=== PATIENT | male | born 1945 | race African-American/Black ===

== ENCOUNTER → 2021-01-18 08:46 | Outpatient (BNVA) | payer MEDICARE, SELFPAY | PROVIDERS: Referring Provider Family Medicine; Visit Provider Physician Assistant | DX: R14.0 Abdominal distension (gaseous) (principal); K57.30 Diverticulosis of large intestine without perforation or abscess without bleeding; Z80.0 Family history of malignant neoplasm of digestive organs; Z86.010 Personal history of colon polyps | CPT/HCPCS: 99202 ==

== ENCOUNTER 2021-01-19 11:48 | Outpatient (REF) | payer OTHER, MEDICARE, SELFPAY ==
[2021-01-19 12:29] LABS: MANUAL DIFF FLAG NO
[2021-01-19 12:30] LABS: Basophils Percent Auto 0.7 % (0-2); Eosinophils Absolute Auto 0.4 X10*3/uL (0.0-0.4); Eosinophils Percent Auto 7.1 % (0-4); Imm Gran Abs Auto 0.01 X10*3/uL (0.00-0.03); Imm Gran Pct Auto 0.2 % (0.0-0.4); Lymphocytes Absolute Auto 2.3 X10*3/uL (1.2-4.9); Lymphocytes Percent Auto 37.4 % (20-40); Mean Corpuscular HGB Conc 32.5 g/dl (31.0-36.0); Mean Corpuscular Hemoglobin 28.1 pg (27.0-33.0); Mean Corpuscular Volume 86.4 fL (80-98); Mean Platelet Volume 10.3 fL (9.4-12.4); Monocytes Absolute Auto 0.5 X10*3/uL (0.1-1.2); Monocytes Percent Auto 8.8 % (2-11); Neutrophils Absolute Auto 2.8 X10*3/uL (2.0-8.3); Neutrophils Percent Auto 45.8 % (45-73); Platelet Count 192 X10*3/uL (160-400); Red Blood Count 4.63 X10*6/uL (4.60-5.80); Red Cell Distribution Width 13.4 % (11.0-16.0)
[2021-01-19 13:16] LABS: Alanine Aminotransferase 17 U/L (0-40); Albumin Level 4.1 g/dL (3.5-5.0); Alkaline Phosphatase 60 U/L (39-117); Anion Gap 10 (12-20); Aspartate Amino Transferase 20 U/L (5-37); Bilirubin Total 0.6 mg/dL (0.0-1.0); Blood Urea Nitrogen 11 mg/dL (9-16); Calcium 9.5 mg/dL (8.4-10.2); Carbon Dioxide 29 mmol/L (22-29); Chloride 103 mmol/L (96-108); Estimated Glomerular Filt Rate 60; Glucose Random 98 mg/dL (60-115); Potassium 4.7 mmol/L (3.3-5.1); Sodium 137 mmol/L (135-145); Total Protein 6.5 g/dL (6.5-8.0)
[2021-01-19 13:38] LABS: Thyroid Stimulating Hormone 1.97 uIU/mL (0.32-4.0)
== END 2021-01-19 11:49 | disposition home or self-care (01) ==
LOC: HO.LAB 11:48
PROVIDERS: PCP Physician Assistant; Visit Provider Physician Assistant
DX: K57.30 Diverticulosis of large intestine without perforation or abscess without bleeding (principal); K59.09 Other constipation
CPT/HCPCS: 36415; 80053; 84443; 85025

== ENCOUNTER 2021-02-07 10:21 | Outpatient (REF) | payer MEDICARE, OTHER, SELFPAY ==
[2021-02-07 10:57] LABS: MANUAL DIFF FLAG NO
[2021-02-07 11:08] LABS: Basophils Absolute Auto 0.1 X10*3/uL (0.0-0.2); Basophils Percent Auto 0.7 % (0-2); Eosinophils Absolute Auto 0.9 X10*3/uL (0.0-0.4); Eosinophils Percent Auto 13.7 % (0-4); Hematocrit 40.1 % (42-52); Imm Gran Abs Auto 0.01 X10*3/uL (0.00-0.03); Imm Gran Pct Auto 0.1 % (0.0-0.4); Lymphocytes Absolute Auto 2.3 X10*3/uL (1.2-4.9); Lymphocytes Percent Auto 33.4 % (20-40); Mean Corpuscular HGB Conc 32.4 g/dl (31.0-36.0); Mean Corpuscular Hemoglobin 28.1 pg (27.0-33.0); Mean Corpuscular Volume 86.6 fL (80-98); Mean Platelet Volume 10.6 fL (9.4-12.4); Monocytes Absolute Auto 0.4 X10*3/uL (0.1-1.2); Monocytes Percent Auto 5.9 % (2-11); Neutrophils Absolute Auto 3.1 X10*3/uL (2.0-8.3); Neutrophils Percent Auto 46.2 % (45-73); Platelet Count 212 X10*3/uL (160-400); Red Blood Count 4.63 X10*6/uL (4.60-5.80); Red Cell Distribution Width 13.2 % (11.0-16.0); White Blood Count 6.8 X10*3/uL (4.8-10.8)
[2021-02-07 11:35] LABS: Appearance Urine CLEAR; Color Urine YELLOW; Glucose Urine UA NEG (NEG); Leukocyte Esterase Urine NEG (NEG); Nitrite Urine NEG (NEG); PH 5.5 (5.0-8.0); Specific Gravity - Urine <= 1.005 (1.005-1.025); Urine Blood NEG (NEG); Urine Ketones NEG (NEG); Urine Protein NEG (NEG-TRACE)
[2021-02-07 11:41] LABS: Alanine Aminotransferase 15 U/L (0-40); Albumin Level 4.1 g/dL (3.5-5.0); Alkaline Phosphatase 57 U/L (39-117); Anion Gap 12 (12-20); Aspartate Amino Transferase 18 U/L (5-37); Bilirubin Total 0.5 mg/dL (0.0-1.0); Blood Urea Nitrogen 9 mg/dL (9-16); Calcium 9.4 mg/dL (8.4-10.2); Carbon Dioxide 28 mmol/L (22-29); Chloride 105 mmol/L (96-108); Cholesterol 212 mg/dL; Estimated Glomerular Filt Rate > 60; Glucose Fasting 102 mg/dL (60-99); HDL Cholesterol 59 mg/dL; LDL Cholesterol Calculated 125 mg/dl; Potassium 4.8 mmol/L (3.3-5.1); Sodium 140 mmol/L (135-145); Total Protein 6.8 g/dL (6.5-8.0); Triglycerides 140 mg/dL
[2021-02-07 12:02] LABS: Prostate Specific Antigen Scr 3.35 ng/mL (<0.05-4.0); TSH reflex Free T4 1.71 uIU/mL (0.32-4.0)
[2021-02-07 12:12] LABS: Microalbumin Urine < 5.0 mg/L
== END 2021-02-07 10:22 | disposition home or self-care (01) ==
LOC: HO.LAB 10:21
PROVIDERS: PCP Family Medicine; Visit Provider Family Medicine
DX: Z00.00 Encounter for general adult medical examination without abnormal findings (principal); Z12.5 Encounter for screening for malignant neoplasm of prostate; I10 Essential (primary) hypertension
CPT/HCPCS: 36415; 80053; 80061; 81003; 82043; 84153; 84443; 85025

== ENCOUNTER → 2021-10-31 11:24 | Outpatient (BNVA) | payer MEDICARE, OTHER, SELFPAY | PROVIDERS: PCP Family Medicine; Referring Provider Family Medicine; Visit Provider Physician Assistant | DX: K21.9 Gastro-esophageal reflux disease without esophagitis (principal); R06.6 Hiccough; Z86.010 Personal history of colon polyps; Z79.899 Other long term (current) drug therapy | CPT/HCPCS: 99202 ==

== ENCOUNTER → 2021-11-22 11:24 | Outpatient (BNVA) | payer MEDICARE, OTHER, SELFPAY | PROVIDERS: PCP Family Medicine; Visit Provider Physician Assistant | DX: R06.6 Hiccough (principal) | CPT/HCPCS: 99212 ==

== ENCOUNTER 2022-02-08 10:36 | Day surgery (SDC) | payer OTHER, SELFPAY ==
--- NOTE | 2022-02-07 12:58 | HO.ANESPROP2 ---
Documented by User: Maye Rodríguez NP 02/07/22 12:59 HPI - Anesthesia Eval Consult details Narrative: 76yo M for Upper Endoscopy [facility] Active Problems Active Problems: All Active Problems (Updated 11/22/21 @ 13:43 by Hellen Velazquez PA-C) Chronic hiccups (Acute) Eosinophil count raised (Acute) Screening for colon cancer (Acute) Screening for prostate cancer (Acute) Normocytic anemia (Acute) Elevated fasting blood sugar (Acute) Adult general medical exam (Acute) Diverticulosis of colon (Acute) Bloating (Acute) History of colon polyps (Acute) Cervicalgia (Acute) History of diverticulitis (Acute) History of resection of small bowel (Acute) GERD (gastroesophageal reflux disease) (Acute) Family history of colon cancer (Acute) Essential hypertension (Acute) History of TIAs (Acute) History of stroke (Acute) Laboratory examination ordered as part of a routine general medical examination (Acute) Past Medical History Medical History (Updated 02/08/22 @ 11:13 by Aminta Thomas RN) Achilles tendon tear Bloating Colon cancer History of colon polyps Migraines TOMY (obstructive sleep apnea) Tachycardia Family History Family History Father Diabetes Brother Colon cancer Sister Colon cancer Sister Colon cancer Breast cancer Surgical History Surgical History H/O abdominal surgery History of appendectomy Previous back surgery Social History Social History Housing: Apartment Patient Tobacco Use Status: Never used Tobacco e-Cigarette/Vaping Use: Never Used Second Hand Smoke Exposure: No service: Yes Current occupational status: retired Meds Allergies Allergy/AdvReac Type Severity Reaction Status Date / Time naproxen [From NAPROSYN] Allergy Intermediate TENSE,ANXIE Verified 11/22/21 11:25 TY duloxetine AdvReac Mild Headache Verified 02/08/22 11:17 glycopyrrolate AdvReac Mild tachycardia Verified 02/08/22 11:17 ibuprofen [From Advil] AdvReac Mild Gastrointestinal Verified 02/08/22 11:17 Upset pravastatin AdvReac Mild Anxiety Verified 02/08/22 11:17 Home Medications Medication Instructions Recorded Confirmed Last Taken Type acetaminophen 500 mg tablet 500 mg PO QID PRN Headache 11/04/20 02/08/22 Unknown History amlodipine 2.5 mg tablet 2.5 mg PO DAILY 11/04/20 02/08/22 Unknown History aspirin 81 mg tablet,delayed 81 mg PO DAILY 11/04/20 02/08/22 Unknown History release (Adult Aspirin Regimen) etodolac 400 mg tablet 400 mg PO BID 11/04/20 02/08/22 Unknown History omega 2-ety-vye-fish oil 100 cap PO 11/04/20 10/31/21 Unknown History mg-160 mg-1,000 mg capsule (Fish Oil) omeprazole 20 mg capsule,delayed 40 mg PO BID 11/04/20 02/08/22 02/08/22 History release simethicone 125 mg capsule (Gas-X 125 mg PO BID-QID PRN 11/04/20 10/31/21 Unknown History Extra Strength) sumatriptan succinate 50 mg tablet 50 mg PO Q2-4H PRN 11/04/20 10/31/21 Unknown History tamsulosin 0.4 mg capsule 0.4 mg PO DAILY 11/04/20 10/31/21 Unknown History Exam Exam Date and Time: February 07, [id number] Assessment and Plan Assessment Anesthesia Assessment: Chart Reviewed Documented by User: Kirt Sharma MD 02/08/22 16:35 HPI - Anesthesia Eval Consult details Narrative: 76yo M for Upper Endoscopy TIA PMFSH Past Medical History Medical History (Updated 02/08/22 @ 11:13 by Aminta Thomas RN) Achilles tendon tear Bloating Colon cancer History of colon polyps Migraines TOMY (obstructive sleep apnea) Tachycardia Family History Family History Father Diabetes Brother Colon cancer Sister Colon cancer Sister Colon cancer Breast cancer Family history of problems with anesthesia: No Surgical History Surgical History H/O abdominal surgery History of appendectomy Previous back surgery History of Problems with Anesthesia: No Social History Social History Housing: Apartment Patient Tobacco Use Status: Never used Tobacco e-Cigarette/Vaping Use: Never Used Second Hand Smoke Exposure: No service: Yes Current occupational status: retired Meds Allergies Allergy/AdvReac Type Severity Reaction Status Date / Time naproxen [From NAPROSYN] Allergy Intermediate TENSE,ANXIE Verified 11/22/21 11:25 TY duloxetine AdvReac Mild Headache Verified 02/08/22 11:17 glycopyrrolate AdvReac Mild tachycardia Verified 02/08/22 11:17 ibuprofen [From Advil] AdvReac Mild Gastrointestinal Verified 02/08/22 11:17 Upset pravastatin AdvReac Mild Anxiety Verified 02/08/22 11:17 Home Medications Medication Instructions Recorded Confirmed Last Taken Type acetaminophen 500 mg tablet 500 mg PO QID PRN Headache 11/04/20 02/08/22 Unknown History amlodipine 2.5 mg tablet 2.5 mg PO DAILY 11/04/20 02/08/22 Unknown History aspirin 81 mg tablet,delayed 81 mg PO DAILY 11/04/20 02/08/22 Unknown History release (Adult Aspirin Regimen) etodolac 400 mg tablet 400 mg PO BID 11/04/20 02/08/22 Unknown History omega 6-nfv-ayy-fish oil 100 cap PO 11/04/20 10/31/21 Unknown History mg-160 mg-1,000 mg capsule (Fish Oil) omeprazole 20 mg capsule,delayed 40 mg PO BID 11/04/20 02/08/22 02/08/22 History release simethicone 125 mg capsule (Gas-X 125 mg PO BID-QID PRN 11/04/20 10/31/21 Unknown History Extra Strength) sumatriptan succinate 50 mg tablet 50 mg PO Q2-4H PRN 11/04/20 10/31/21 Unknown History tamsulosin 0.4 mg capsule 0.4 mg PO DAILY 11/04/20 10/31/21 Unknown History Exam Airway Mallampati Class: III TM Dist: >3cm Neck ROM: Full Partial: Lower Loose/Missing/Broken Teeth: Yes (Chipped teeth , fillings , implants ) Heart: S1,S2 Lungs: b/l breath sounds Assessment and Plan Assessment Anesthesia Assessment: Anesthesia Plan Discussed Final Anesthetic Review Family History of Problems with Anesthesia: No History of Problems with Anesthesia: No NPO: Yes ASA Class: III Final Preanesthetic Review: Meds/Allgs Chart Reviewed, Consent Obtained/Reviewed and Anes Risks/Benef Reviewed Patient Risk: Intermediate Procedure Risk: Intermediate Anesthetic Plan Anesthetic Plan: MAC: Disposition: Standard PACU
[2022-02-08 10:47] VITALS: BMI 26.6
--- NOTE | 2022-02-08 10:54 | MHC.SHP ---
Pre-Procedural Eval Section A Date of Service: 02/08/22 Section B Chief Complaint: Hiccough, chronic Relevant Family History (Specify if Yes): No Relevant Social History: None Present Medications: see Short Stay Collaborative assessment Medical History: Significant History (Achilles tendon tear Bloating Colon cancer History of colon polyps Migraines) History of Previous Operations: Relevant previous surgery/procedure and date(s) (H/O abdominal surgery History of appendectomy Previous back surgery) Allergies: Allergies Allergy/AdvReac Type Severity Reaction Status Date / Time naproxen [From NAPROSYN] Allergy Intermediate TENSE,ANXIE Verified 11/22/21 11:25 TY Review of Systems Sugical H&P ROS: Negative: Constitution, Cardiovascular, Respiratory, Neurological, Psychiatric, Hem-Onc, Allergic/Immunologic, Gastrointestinal, Genitourinary, Musculoskeletal, Integumentary, Endocrine and Eyes/Ears/Nose/Throat Exam Surgical H&P Exam: Normal: HEENT, Normal: Heart, Normal: Lungs, Normal: Extremities, Normal: Abdomen, Normal: Skin and Normal: Neurological Plan Diagnosis/Plan: Unchanged I have reviewed the history and physical and performed a pertinent physical examination on my patient. No changes have occurred unless specified.
[2022-02-08 10:56] VITALS: BP 148/92; PULSE 84; RESP 16; TEMP 36.6; O2SAT 98
[2022-02-08] MEDS: Lactated Ringers 1,000 ML 100 ML IVCONT (11:11)
--- NOTE | 2022-02-08 11:43 | W.PM.OPN ---
Operative Note Operative Note Date of Service: 02/08/22 Narrative: Procedure Description: EGD Indication: hiccups Anesthesia: MAC FLEXIBLE TRANSORAL UPPER GASTROINTESTINAL ENDOSCOPY UPPER ENDOSCOPY Consent: Indications for the procedure and potential complications of bleeding, perforation, reaction to medications and missed diagnosis were discussed with the patient and informed consent was obtained. Instrument: Olympus GIF H 190 J mid size upper endoscope Monitoring: Vital signs and clinical assessment, continuous EKG monitoring, Pulse oximetry, Carbon Dioxide monitoring and blood pressure monitoring were done throughout the procedure. Procedure: The patient was placed in the left lateral decubitis position and pre-procedure medications were administered and a bite block was placed. The endoscope was inserted into the mouth and advanced under direct vision to the third part of duodenum. A careful inspection was made as the upper endoscope was withdrawn including a retroflexed examination of the proximal stomach; Findings and interventions are described below. Findings: Larynx:normal Esophagus: GE junction at 40 cm, diaphragm hiatus at 43 cm, 3 cm sliding hiatal hernia. bx taken from GEJ, distal and proximal esophagus. balloon dilation done to 19 mm at UES and LES. Stomach: Patchy gastric erythema. Biopsies were obtained. Grade 2 flap valve on retroflexed examination of the cardia. fundic gland polyps noted. Duodenum: Normal bulb and descending duodenum, bx taken Intervention: Biopsies as noted above, balloon dilation Impression/Findings: fundic gland polyps hiatal hernia gastritis PLAN: review nsaid use if ongoing reflux then change PPI, can consider gentile as well, possible manometry cont with baclofen as helps
[2022-02-08 11:50] VITALS: BP 130/84; PULSE 76; RESP 16; TEMP 36.5; O2SAT 100
[2022-02-08 12:05] VITALS: BP 157/84; PULSE 76; RESP 18; TEMP 36.5; O2SAT 99
== END 2022-02-08 12:30 | disposition home or self-care (01) ==
PROVIDERS: PCP Family Medicine; Visit Provider Internal Medicine Gastroenterology
PROC: 0DJ08ZZ Inspection of Upper Intestinal Tract, Via Natural or Artificial Opening Endoscopic (ICD-10-PCS; CPT 43235; principal; 2022-02-08 12:20)
DX: R06.6 Hiccough (principal); K29.50 Unspecified chronic gastritis without bleeding; K31.7 Polyp of stomach and duodenum; K44.9 Diaphragmatic hernia without obstruction or gangrene; Z85.038 Personal history of other malignant neoplasm of large intestine; Z86.010 Personal history of colon polyps; Z79.899 Other long term (current) drug therapy; Z79.82 Long term (current) use of aspirin; Z88.8 Allergy status to other drugs, medicaments and biological substances; Z98.890 Other specified postprocedural states
CPT/HCPCS: 43249; 43239; 88305; 88342; C1726

== ENCOUNTER 2022-02-20 09:57 | Outpatient (REF) | payer MEDICARE, SELFPAY ==
[2022-02-20 11:14] LABS: Alanine Aminotransferase 10 U/L (0-40); Albumin Level 4.1 g/dL (3.5-5.0); Alkaline Phosphatase 67 U/L (39-117); Anion Gap 12 (12-20); Aspartate Amino Transferase 16 U/L (5-37); Bilirubin Total 0.6 mg/dL (0.0-1.0); Blood Urea Nitrogen 10 mg/dL (9-16); Calcium 9.4 mg/dL (8.4-10.2); Carbon Dioxide 29 mmol/L (22-29); Chloride 104 mmol/L (96-108); Estimated Glomerular Filt Rate > 60; Glucose Random 95 mg/dL (60-115); Potassium 4.1 mmol/L (3.3-5.1); Sodium 141 mmol/L (135-145); Total Protein 6.7 g/dL (6.5-8.0)
== END 2022-02-20 09:58 | disposition home or self-care (01) ==
LOC: HO.LAB 09:57
PROVIDERS: PCP Family Medicine; Visit Provider Family Medicine
DX: I10 Essential (primary) hypertension (principal)
CPT/HCPCS: 36415; 80053

== ENCOUNTER → 2022-02-22 11:44 | Outpatient (BNVA) | payer MEDICARE, SELFPAY | PROVIDERS: PCP Family Medicine; Visit Provider Physician Assistant | DX: K21.9 Gastro-esophageal reflux disease without esophagitis (principal) | CPT/HCPCS: 99212 ==

== ENCOUNTER → 2022-05-24 11:06 | Outpatient (BNVA) | payer MEDICARE, SELFPAY | PROVIDERS: PCP Family Medicine; Visit Provider Physician Assistant | DX: R06.6 Hiccough (principal) | CPT/HCPCS: 99212 ==

== ENCOUNTER 2022-06-22 10:27 | Outpatient (REF) | payer MEDICARE, SELFPAY | END 2022-06-22 10:28 | disposition home or self-care (01) | LOC: HO.LAB 10:27 | PROVIDERS: PCP Family Medicine; Visit Provider Family Medicine | DX: Z13.89 Encounter for screening for other disorder (principal) ==

== ENCOUNTER → 2022-07-06 09:33 | Outpatient (BNVA) | payer MEDICARE, SELFPAY | PROVIDERS: PCP Family Medicine; Referring Provider Physician Assistant; Visit Provider Surgery | DX: K44.9 Diaphragmatic hernia without obstruction or gangrene (principal); K21.9 Gastro-esophageal reflux disease without esophagitis; K22.4 Dyskinesia of esophagus; I10 Essential (primary) hypertension; G43.909 Migraine, unspecified, not intractable, without status migrainosus; Z87.19 Personal history of other diseases of the digestive system; Z86.73 Personal history of transient ischemic attack (TIA), and cerebral infarction without residual deficits; Z79.899 Other long term (current) drug therapy | CPT/HCPCS: 99212 ==

== ENCOUNTER → 2022-07-09 09:58 | Outpatient (BNVA) | payer MEDICARE, SELFPAY | PROVIDERS: PCP Physician Assistant; Visit Provider Internal Medicine Gastroenterology | DX: R06.6 Hiccough (principal) | CPT/HCPCS: 99212 ==

== ENCOUNTER 2022-07-24 07:23 | Outpatient (REF) | payer OTHER, MEDICARE, SELFPAY ==
--- NOTE | ~2022-07-24 | CT_ITS ---
EXAMINATION: CT CHEST WITHOUT CONTRAST CLINICAL INFORMATION: Diaphragmatic hernia with obstruction. COMPARISON: CT abdomen and pelvis 07/24/2022. TECHNIQUE: 5 minutes thin axial and reformatted 3 minutes thin sagittal and coronal images of chest were obtained without contrast. This CT examination was performed using dose optimization techniques as appropriate, variously including the following: *Automated exposure control *Adjustment of mA and/or kV according to patient size (this includes techniques or standardized protocols for targeted exams where dose is matched to indication/reason for exam; i.e. extremities or head) *Use of iterative reconstruction technique DLP: 676 mGy-cm FINDINGS: LUNGS: The lungs are well-expanded and clear of acute pneumonic process. There is a 7 mm radiopaque calcification lateral segment left lower lobe. No additional radiopaque nodules visualized. There is no interstitial thickening, bronchiectasis, ground-glass density or nodule. MEDIASTINUM: The thyroid lobes are symmetrical and normal. The central trachea and the bronchi are widely patent. Heart size and the great vessels are normal caliber. There are coronary artery calcifications. There is no pericardial effusion. No abnormal mediastinal or hilar lymph nodes seen. PLEURA: There is no pleural effusion, thickening or calcification. AXILLA: There are small shotty bilateral axillary lymph nodes. The chest wall is unremarkable. OSSEOUS STRUCTURES: No aggressive lytic or sclerotic process seen. UPPER ABDOMEN: Visualized liver, pancreas and bilateral adrenal glands are unremarkable. There is a small hiatal hernia. CT/CT chest wo con - High Res IMPRESSION: 1. A 7 mm radiopaque calcification lateral segment left lower lobe. No additional nodules seen. 2. No abnormal mediastinal or axillary lymph nodes seen.
--- NOTE | ~2022-07-24 | CT_ITS ---
EXAMINATION: CT ABDOMEN AND PELVIS WITHOUT CONTRAST CLINICAL INFORMATION: Diaphragmatic hernia. COMPARISON: None available. TECHNIQUE: Multidetector volumetric imaging was performed from the superior aspect of the liver through the pubic symphysis. Sagittal and coronal reformatted images were obtained on the technologist's workstation. This CT examination was performed using dose optimization techniques as appropriate, variously including the following: *Automated exposure control *Adjustment of mA and/or kV according to patient size (this includes techniques or standardized protocols for targeted exams where dose is matched to indication/reason for exam; i.e. extremities or head) *Use of iterative reconstruction technique DLP: 676 mGy-cm FINDINGS: LUNG BASES: There is a calcified 6 mm granuloma left lower lobe and small calcification left hilar infrahilar region likely a lymph node. Otherwise lung bases are clear. Heart size is normal. A small hiatal hernia with mild mural thickening is noted. LIVER, GALLBLADDER, AND BILIARY TREE: The liver is normal in size, shape, and attenuation, few scattered calcifications seen in left hepatic lobe. No focal lesion or intrahepatic ductal dilatation. The gallbladder is unremarkable with no evidence of radiopaque gallstones, gallbladder wall thickening, or obvious pericholecystic inflammatory changes. PANCREAS: Unremarkable. SPLEEN: There are punctate calcifications in the spleen. ADRENAL GLANDS: Unremarkable. KIDNEYS AND URETERS: The kidneys are normal in size, shape, and attenuation. No hydronephrosis, hydroureter, or calculi seen. No perinephric stranding. There is a 5.3 cm cyst mid to lower pole left kidney. BLADDER: There is mild bladder wall thickening but no radiopaque calculi. GASTROINTESTINAL TRACT: There is scattered diverticuli seen throughout the colon without any evidence of mural thickening or pericolic fat stranding. The small bowel loops are normal caliber. Appendix is not seen with certainty. ABDOMINAL WALL: No significant hernia is appreciated. LYMPH NODES: No abnormal size retroperitoneal lymph nodes seen. VASCULAR: Unremarkable. PELVIC VISCERA: No free air or free fluid seen. OSSEOUS STRUCTURES: There are degenerative disc changes L4-L5 and L5-S1 disc levels. No aggressive lytic or sclerotic process seen. CT/CT abdomen pelvis wo IV con IMPRESSION: Small hiatal hernia with mild mural thickening. Colonic diverticulosis without diverticulitis. Left renal cyst. Fleischner guidelines were followed.
--- NOTE | ~2022-07-24 | FL_ITS ---
EXAMINATION: XR UPPER GI SERIES WITH SMALL BOWEL CLINICAL INFORMATION: Abdominal pain. History of diaphragmatic hernia. COMPARISON: CT abdomen and pelvis 07/24/2022 performed earlier today. TECHNIQUE: A single solid surface fabricator view of the abdomen was obtained prior to the exam. Subsequently, routine upper GI air-contrast study with sequential images of abdomen were obtained as part of small bowel follow-through. FINDINGS: Single supine view of the abdomen reveals a nonspecific bowel gas pattern. There is linear calcification in left mid abdomen from previous intervention. Following oral administration of thick barium and effervescent granules in upright view, there is normal propagation of bolus from the oral cavity through the pharynx, esophagus into stomach without obstruction. There is a mid esophageal blind-ending irregular-shaped diverticulum. There is an irregular mucosal appearing distal esophagus suspicious for esophagitis. Also visualized is moderate gastroesophageal reflux in supine position with a small sliding hiatal hernia. Otherwise the course, caliber and peristalsis of the stomach is normal. No mucosal irregularity seen. There is a small sliding hiatal hernia with reflux. The duodenal bulb and the sweep is normal. Incidental finding of multiple colonic diverticula noted. Sequential images of small bowel reveal course, caliber and peristalsis of the small bowel loops is normal. No mucosal thickening, irregularity or narrowing seen. The small bowel transit time is 120 minutes. Spot images of ileocecal junction reveal no significant abnormality. FLUOROSCOPY TIME: 3.7 minutes. DOSE AREA PRODUCT: 62.742 uGy-m2 (microgray-meter squared). FL/FL upper GI w air w SBFT IMPRESSION: Moderate size mid esophageal irregular-appearing ventral diverticulum. Suspect distal reflux esophagitis. There is a moderate gastroesophageal reflux with sliding hiatal hernia. Unremarkable small bowel follow-through with a small bowel transit time of 120 minutes.
== END 2022-07-24 07:24 | disposition home or self-care (01) ==
LOC: HO.CT 07:23
PROVIDERS: PCP Physician Assistant; Visit Provider Surgery
DX: K44.9 Diaphragmatic hernia without obstruction or gangrene (principal); Z87.19 Personal history of other diseases of the digestive system
CPT/HCPCS: 71250; 74176; 74246; 74248

== ENCOUNTER → 2022-08-01 10:19 | Outpatient (BNVA) | payer OTHER, MEDICARE, SELFPAY | PROVIDERS: PCP Physician Assistant; Referring Provider Physician Assistant; Visit Provider Surgery | DX: K44.9 Diaphragmatic hernia without obstruction or gangrene (principal); Q39.6 Congenital diverticulum of esophagus | CPT/HCPCS: 99212 ==

== ENCOUNTER → 2022-08-17 09:42 | Outpatient (BNVA) | payer MEDICARE, SELFPAY | PROVIDERS: PCP Physician Assistant; Visit Provider Surgery | DX: K44.0 Diaphragmatic hernia with obstruction, without gangrene (principal); K22.4 Dyskinesia of esophagus; R06.6 Hiccough | CPT/HCPCS: 99202 ==

== ENCOUNTER → 2022-09-05 14:28 | Outpatient (BNVA) | payer OTHER, SELFPAY | PROVIDERS: PCP Physician Assistant; Referring Provider Physician Assistant; Visit Provider Internal Medicine | DX: Z01.810 Encounter for preprocedural cardiovascular examination (principal); I25.10 Atherosclerotic heart disease of native coronary artery without angina pectoris; Z86.73 Personal history of transient ischemic attack (TIA), and cerebral infarction without residual deficits | CPT/HCPCS: 93005; 99202 ==

== ENCOUNTER 2022-09-13 10:17 | Outpatient (REF) | payer OTHER, MEDICARE, SELFPAY ==
[2022-09-13 12:18] LABS: Anion Gap 11 (12-20); Blood Urea Nitrogen 9 mg/dL (9-16); Calcium 9.1 mg/dL (8.4-10.2); Carbon Dioxide 29 mmol/L (22-29); Chloride 104 mmol/L (96-108); Estimated Glomerular Filt Rate > 60; Glucose Random 88 mg/dL (60-115); Potassium 4.5 mmol/L (3.3-5.1); Sodium 139 mmol/L (135-145)
== END 2022-09-13 10:18 | disposition home or self-care (01) ==
LOC: HO.LAB 10:17
PROVIDERS: PCP Physician Assistant; Visit Provider Internal Medicine
DX: Z01.810 Encounter for preprocedural cardiovascular examination (principal); I10 Essential (primary) hypertension; Z86.73 Personal history of transient ischemic attack (TIA), and cerebral infarction without residual deficits
CPT/HCPCS: 36415; 80048

== ENCOUNTER → 2022-09-17 15:16 | Outpatient (REF) | payer OTHER, MEDICARE, SELFPAY ==
--- NOTE | 2022-09-17 15:19 | CA_ITS ---
Transthoracic Echocardiogram Patient (Last, First, Middle): Benjamín Viera R Gender: Male Date of : 1945 Age: 77 Procedure Date: 09/17/2022 Procedure Type: Transthoracic Echocardiogram Location: OP Height: 185.42 cm Weight: 89.81 kg BSA: 2.14 m2 Heart Rate: 50 bpm BP: 122 / 80 mmHg Horticultural Therapist: JERMAN Referring MD: Benjamin Calabrese MD Symptoms: Z01.810 - Encounter for preprocedural cardiovascular examination Study Quality: Adequate ECG Rhythm: Bradycardia Conclusions: - The left ventricular systolic function is normal. The calculated ejection fraction is 57% by biplane method. - No obvious valvular pathology seen on this study. 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 Findings Left Ventricle Normal left ventricular cavity size. There is mildly increased left ventricular wall thickness. The left ventricular systolic function is normal. The calculated ejection fraction is 57% by biplane method. There is no evidence of regional wall motion abnormalities. Diastolic function is normal for age. LV peak GLS -16.2%. Right Ventricle Mildly increased right ventricular cavity size. There is normal right ventricular systolic function. Atria The left atrium is mildly dilated. The right atrium is normal in size. Aortic Valve There is a normal trileaflet aortic valve. There is no aortic valve stenosis. There is no aortic valve regurgitation. Mitral Valve The mitral valve appears normal. There is trace mitral valve regurgitation. There is no mitral valve stenosis. Pulmonic Valve The pulmonic valve is likely normal. Tricuspid Valve There is trace tricuspid valve regurgitation. There is no evidence of pulmonary hypertension. Great Vessels There is mild dilatation of the ascending aorta measuring 4.10 cm. Venous The inferior vena cava is normal in size and collapses greater than 50% with inspiration. Pericardium/Pleural There is no evidence of pericardial effusion. Prior Study Comparison No prior study available for comparison. Recommendations, Care & Conclusions No obvious valvular pathology seen on this study. Measurements 2D Linear Measurements IVSd: 1.11 0.6-0.9/0.6-1.0 cm LVIDd: 4.97 3.9-5.3/4.2-5.9 cm LVIDd Index: 2.32 2.4-3.2/2.2-3.1 cm/m2 LVIDs: 3.07 2.0-3.6 cm LVPWd: 1.13 0.7-1.1 cm LA Diam: 3.60 2.7-3.8/3.0-4.0 cm LAIDs Index: 1.68 1.5-2.3 cm/m2 LV Mass: 262.12 67-162/88-224 g LV Mass Index: 122.49 43-95/49-115 g/m2 LVOT Diam: 2.20 3.0+(-)1.3 cm 2D Systolic Function EF 4C: 58.00 >55% EF 2C: 56.50 >55% EF BiP: 56.60 >55% Mitral Valve MV Pk E: 0.73 MV PK A: 0.93 MV Decel Time: 211.00 E/A: 0.80 E'Lateral: 7.18 E'Medial: 5.98 E/E' Med: 12.30 E/E' Lat: 10.20 PHT: 62.00 MVA PHT: 3.55 Decel [place]: 3.47 Aortic Valve AoV Pk Richard: 1.37 AoV Mn Richard: 0.92 AoV VTI: 0.31 AoV Pk Grad: 8.00 Aov Mn Grad: 4.00 GAGAN Cont.VTI: 2.91 LVOT LVOT Pk Richard: 0.92 LVOT Mn Richard: 0.61 LVOT VTI: 0.24 LVOT Pk Grad: 3.00 LVOT Mn Grad: 2.00 LVOT Diam: 2.20 LVOT Area: 3.80 Diastolic Function MV Pk E: 0.73 MV Pk A: 0.93 E/A: 0.80 E'Medial: 5.98 E/E' Med: 12.30 E' Laterial: 7.18 E/E' Lat: 10.20 Right Ventricle TAPSE (mm): 25.30 TVS' Richard: 9.46 Tricuspid Valve TR Pk Richard: 2.01 TR Pk Grad: 16.00 RA Press: 3.00 RVSP: 19.00 Great Vessels Aorta Sinus of Valsalva: 4.30 2.0-3.[address] [place]: 3.48 1.7-3.4 cm Ao Asc: 4.10 2.1-3.4 cm Updated in Other Vendor System with Status of Final Benjamin Calabrese MD electronically signed on 09/18/2022 12:01:01 PM with status of Final
== END ==
LOC: HO.CARD 15:16
PROVIDERS: PCP Physician Assistant; Visit Provider Internal Medicine
DX: Z01.810 Encounter for preprocedural cardiovascular examination (principal)
CPT/HCPCS: 93306; 93356

== ENCOUNTER → 2022-09-21 09:28 | Outpatient (BNVA) | payer OTHER, MEDICARE, SELFPAY | PROVIDERS: PCP Physician Assistant; Visit Provider Surgery | DX: K44.9 Diaphragmatic hernia without obstruction or gangrene (principal); K21.9 Gastro-esophageal reflux disease without esophagitis | CPT/HCPCS: 99212 ==

== ENCOUNTER 2022-10-03 10:29 | Outpatient (REF) | payer MEDICARE, SELFPAY ==
[2022-10-03 10:57] LABS: MANUAL DIFF FLAG NO
[2022-10-03 11:31] LABS: Basophils Percent Auto 0.6 % (0-2); Eosinophils Absolute Auto 0.3 X10*3/uL (0.0-0.4); Eosinophils Percent Auto 6.2 % (0-4); Hematocrit 39.8 % (42.0-52.0); Hemoglobin 12.9 g/dl (14.0-18.0); Lymphocytes Absolute Auto 2.2 X10*3/uL (1.2-4.9); Lymphocytes Percent Auto 44.5 % (20-40); Mean Corpuscular HGB Conc 32.4 g/dl (31.0-36.0); Mean Corpuscular Hemoglobin 27.7 pg (27.0-33.0); Mean Corpuscular Volume 85.6 fL (80.0-98.0); Monocytes Absolute Auto 0.4 X10*3/uL (0.1-1.2); Neutrophils Absolute Auto 2.1 x10*3/uL (2.0-8.3); Neutrophils Percent Auto 41.7 % (45-73); Platelet Count 196 X10*3/uL (160-400); Red Blood Count 4.65 X10*6/uL (4.60-5.80); Red Cell Distribution Width 13.2 % (11.0-16.0)
[2022-10-03 11:32] LABS: Prothrombin Time 10.9 SEC (10.0-13.1)
[2022-10-03 11:35] LABS: Partial Thromboplastin Time 30.6 SEC (26.0-36.4)
[2022-10-03 11:43] LABS: Estimated Average Glucose 108 mg/dL; Hemoglobin A1c % 5.4 %
== END 2022-10-03 10:30 | disposition home or self-care (01) ==
LOC: HO.LAB 10:29
PROVIDERS: Visit Provider Surgery
DX: K21.9 Gastro-esophageal reflux disease without esophagitis (principal); K44.9 Diaphragmatic hernia without obstruction or gangrene
CPT/HCPCS: 36415; 83036; 85025; 85610; 85730

== ENCOUNTER 2022-10-11 06:16 | Inpatient (IN) | payer OTHER, SELFPAY ==
[2022-10-04 15:23] VITALS: BMI 26.1
--- NOTE | 2022-10-07 11:35 | MHC.SHP ---
Pre-Procedural Eval Section A Date of Service: 10/07/22 The patient is an INPATIENT: Yes The History & Physical has been completed within 30 days and I have reviewed it.: No Section B Chief Complaint: Diaphragmatic hernia without obstruction or gangre Relevant Family History (Specify if Yes): No Relevant Social History: None Present Medications: None Medical History: No relevant PMH History of Previous Operations: No relevant previous surgery Allergies: Allergies Allergy/AdvReac Type Severity Reaction Status Date / Time naproxen [From NAPROSYN] Allergy Intermediate TENSE,ANXIE Verified 10/04/22 13:24 TY duloxetine AdvReac Mild Headache Verified 10/04/22 13:24 glycopyrrolate AdvReac Mild tachycardia Verified 10/04/22 13:24 ibuprofen [From Advil] AdvReac Mild Gastrointestinal Verified 10/04/22 13:24 Upset pravastatin AdvReac Mild Anxiety Verified 10/04/22 13:24 Review of Systems Sugical H&P ROS: Negative: Constitution, Cardiovascular, Respiratory, Neurological, Psychiatric, Hem-Onc, Allergic/Immunologic, Genitourinary, Musculoskeletal, Integumentary, Endocrine and Eyes/Ears/Nose/Throat and Yes, Specify: Gastrointestinal (GERD, hiccups) Exam Surgical H&P Exam: Normal: HEENT, Normal: Heart, Normal: Lungs, Normal: Extremities, Normal: Abdomen, Normal: Skin and Normal: Neurological Plan Diagnosis/Plan: Unchanged I have reviewed the history and physical and performed a pertinent physical examination on my patient. No changes have occurred unless specified. Time Spent With Patient Time: Total time managing care of this patient today ____ minutes.
--- NOTE | 2022-10-10 10:58 | P.CONAN_ITS ---
Documented by User: Maye Rodríguez NP 10/10/22 11:05 HPI - Anesthesia Eval Consult details Narrative: 77yo M for Hernia Repair Diaphragmatic Laparoscopic Cardiac optimized [facility] Active Problems Active Problems: All Active Problems (Updated 10/05/22 @ 16:32 by Bubba Hardy MD) Nausea (Acute) Atherosclerotic cardiovascular disease (Acute) Preoperative cardiovascular examination (Acute) Obstruction concurrent with and due to paraesophageal hernia (Acute) Chronic hiccups (Acute) Family history of colon cancer (Acute) Hiatal hernia (Acute) Diaphragmatic hernia (Acute) GERD (gastroesophageal reflux disease) (Acute) Esophageal dysmotility (Acute) Esophageal diverticulum (Acute) Diverticulosis of colon (Acute) History of diverticulitis (Acute) History of colon polyps (Acute) History of TIAs (Acute) History of stroke (Acute) TOMY (obstructive sleep apnea) (Acute) Essential hypertension (Acute) Elevated fasting blood sugar (Acute) Normocytic anemia (Acute) Eosinophil count raised (Acute) Migraines (Acute) Cervicalgia (Acute) BPH (benign prostatic hyperplasia) (Acute) Past Medical History Medical History Achilles tendon tear BPH (benign prostatic hyperplasia) Chronic hiccups DJD (degenerative joint disease) Essential hypertension Family history of colon cancer History of colon polyps History of stroke History of TIAs Migraines TOMY (obstructive sleep apnea) Family History Family History Father Diabetes Brother Colon cancer Sister Colon cancer Sister Colon cancer Breast cancer Family history of problems with anesthesia: No Surgical History Surgical History History of appendectomy History of carpal tunnel surgery of left wrist History of colonoscopy History of esophagogastroduodenoscopy (EGD) History of lumbar surgery History of resection of small bowel History of Problems with Anesthesia: No Social History Social History Housing: Apartment Are you a primary career services director to a significant other at home: No Do you presently have visiting nurse or other home services: No Patient Tobacco Use Status: Never used Tobacco e-Cigarette/Vaping Use: Never Used Second Hand Smoke Exposure: No Use of substances other than those prescribed or required for medical reasons: No Have you been hit, kicked, punched, or otherwise hurt by someone within the past year? If so, by whom?: No Are you DNR?: No Advance Directives: No Advance Directives Information Provided: Yes (Info Sent with Pre-op Instructions) Advance Directives on File: No Recently lost weight without trying: No Eating poorly because of decreased appetite: No Nutrition Risks: No Nutritional Risk service: Yes Current occupational status: retired Meds Allergies Allergy/AdvReac Type Severity Reaction Status Date / Time naproxen [From NAPROSYN] Allergy Intermediate TENSE,ANXIE Verified 10/04/22 13:24 TY duloxetine AdvReac Mild Headache Verified 10/04/22 13:24 glycopyrrolate AdvReac Mild tachycardia Verified 10/04/22 13:24 ibuprofen [From Advil] AdvReac Mild Gastrointestinal Verified 10/04/22 13:24 Upset pravastatin AdvReac Mild Anxiety Verified 10/04/22 13:24 Home Medications Medication Instructions Recorded Confirmed Last Taken Type acetaminophen 500 mg tablet 500 mg PO QID PRN Headache 11/04/20 10/04/22 Unknown History amlodipine 2.5 mg tablet 2.5 mg PO DAILY 11/04/20 10/04/22 Unknown History aspirin 81 mg tablet,delayed 81 mg PO DAILY 11/04/20 10/04/22 10/04/22 History release (Adult Aspirin Regimen) simethicone 125 mg capsule (Gas-X 125 mg PO BID-QID PRN Gastric 11/04/20 10/04/22 Unknown History Extra Strength) Reflux sumatriptan succinate 50 mg tablet 50 mg PO Q2-4H PRN Headache 11/04/20 10/04/22 Unknown History tamsulosin 0.4 mg capsule 0.4 mg PO DAILY 11/04/20 10/04/22 Unknown History Exam Exam Date and Time: October 10, 2022 1058 Height,Weight and Vital Signs: Height 6 ft 1 in Weight 89.811 kg Pertinent Lab Results Pertinent Lab Results: Laboratory Tests 10/03/22 10:45 Blood Type B Positive Antibody Screen NEGATIVE Narrative Narrative: EKG 08/2022 sinus bradycardia at 58/Min; no significant ST-T changes and otherwise unremarkable.? Normal GA and corrected QT. Cardiac CTA 09/2022 No hemodynamically significant CAD ECHO 09/2022 Conclusions: - The left ventricular systolic function is normal.? The ? calculated ejection fraction is 57% by biplane method. ? - No obvious valvular pathology seen on this study.? 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 ? Assessment and Plan Assessment Anesthesia Assessment: Chart Reviewed Final Anesthetic Review Family History of Problems with Anesthesia: No History of Problems with Anesthesia: No Documented by User: Sherice Roy MD 10/11/22 11:15 [facility] Active Problems Active Problems: All Active Problems (Updated 10/11/22 @ 07:15 by Sherice Roy MD) Nausea (Acute) Atherosclerotic cardiovascular disease (Acute)- coronary calcifications Preoperative cardiovascular examination (Acute) Obstruction concurrent with and due to paraesophageal hernia (Acute) Chronic hiccups (Acute) Family history of colon cancer (Acute) Hiatal hernia (Acute) Diaphragmatic hernia (Acute) GERD (gastroesophageal reflux disease) (Acute) Esophageal dysmotility (Acute) Esophageal diverticulum (Acute) Diverticulosis of colon (Acute) History of diverticulitis (Acute) History of colon polyps (Acute) History of TIAs (Acute)- several TIAs. Last about 2 years ago History of stroke (Acute)- no residual TOMY (obstructive sleep apnea) (Acute) Essential hypertension (Acute) Elevated fasting blood sugar (Acute) Normocytic anemia (Acute) Eosinophil count raised (Acute) Migraines (Acute) Cervicalgia (Acute) BPH (benign prostatic hyperplasia) (Acute) Past Medical History Medical History Achilles tendon tear BPH (benign prostatic hyperplasia) Chronic hiccups DJD (degenerative joint disease) Essential hypertension Family history of colon cancer History of colon polyps History of stroke History of TIAs Migraines TOMY (obstructive sleep apnea) Family History Family History Father Diabetes Brother Colon cancer Sister Colon cancer Sister Colon cancer Breast cancer Surgical History Surgical History History of appendectomy History of carpal tunnel surgery of left wrist History of colonoscopy History of esophagogastroduodenoscopy (EGD) History of lumbar surgery History of resection of small bowel Social History Social History Housing: Apartment Are you a primary career services director to a significant other at home: No Do you presently have visiting nurse or other home services: No Patient Tobacco Use Status: Never used Tobacco e-Cigarette/Vaping Use: Never Used Second Hand Smoke Exposure: No Use of substances other than those prescribed or required for medical reasons: No Have you been hit, kicked, punched, or otherwise hurt by someone within the past year? If so, by whom?: No Are you DNR?: No Advance Directives: No Advance Directives Information Provided: Yes (Info Sent with Pre-op Instructions) Advance Directives on File: No Recently lost weight without trying: No Eating poorly because of decreased appetite: No Nutrition Risks: No Nutritional Risk service: Yes Current occupational status: retired Meds Allergies Allergy/AdvReac Type Severity Reaction Status Date / Time naproxen [From NAPROSYN] Allergy Intermediate TENSE,ANXIE Verified 10/04/22 13:24 TY duloxetine AdvReac Mild Headache Verified 10/04/22 13:24 glycopyrrolate AdvReac Mild tachycardia Verified 10/04/22 13:24 ibuprofen [From Advil] AdvReac Mild Gastrointestinal Verified 10/04/22 13:24 Upset pravastatin AdvReac Mild Anxiety Verified 10/04/22 13:24 Home Medications Medication Instructions Recorded Confirmed Last Taken Type acetaminophen 500 mg tablet 500 mg PO QID PRN Headache 11/04/20 10/04/22 Unknown History amlodipine 2.5 mg tablet 2.5 mg PO DAILY 11/04/20 10/04/22 Unknown History aspirin 81 mg tablet,delayed 81 mg PO DAILY 11/04/20 10/04/22 10/04/22 History release (Adult Aspirin Regimen) simethicone 125 mg capsule (Gas-X 125 mg PO BID-QID PRN Gastric 11/04/20 10/04/22 Unknown History Extra Strength) Reflux sumatriptan succinate 50 mg tablet 50 mg PO Q2-4H PRN Headache 11/04/20 10/04/22 Unknown History tamsulosin 0.4 mg capsule 0.4 mg PO DAILY 11/04/20 10/04/22 Unknown History Exam Height,Weight and Vital Signs: Height 6 ft 1 in Weight 89.811 kg Vital Signs Temp Pulse Resp BP Pulse Ox O2 Del Method 10/11/22 06:39 97.4 F 46 L 16 132/72 99 Room Air Pertinent Lab Results Pertinent Lab Results: Laboratory Tests 10/03/22 10:45 Blood Type B Positive Antibody Screen NEGATIVE Lab Results 10/03/22 10/10/22 Range/Units 10:45 12:07 COVID-19 (PONCE) Negative (Negative) COVID-19 Clin Com See Note Blood Type B Positive Antibody Screen NEGATIVE Airway Mallampati Class: III TM Dist: >3cm Neck ROM: Full Partial: Lower Loose/Missing/Broken Teeth: Yes (Bonded top front incisor, partial denture bottom-not here. Denies loose or broken teeth) Heart: RRR Lungs: CTAB Assessment and Plan Assessment Anesthesia Assessment: Anesthesia Plan Discussed Final Anesthetic Review NPO: Yes ASA Class: III Final Preanesthetic Review: No Changes in Pt Med Stat, Meds/Allgs Chart Reviewed, Consent Obtained/Reviewed and Anes Risks/Benef Reviewed Patient Risk: Intermediate Procedure Risk: Intermediate Assessment/Block/Sedation in SS: Assess/Block/Sedation-SS Anesthetic Plan Anesthetic Plan: GA Disposition: Standard PACU and Inp. Admit - Standard Bed
[2022-10-10 13:16] LABS: IDNOW Serial# 9DB6401D
[2022-10-10 13:17] LABS: COVID-19 Test Negative (Negative)
[2022-10-11] VITALS (14 sets, daily range): BP systolic 132–159; BP diastolic 72–92; PULSE 46–84; RESP 14–18; TEMP 36–37.1; O2SAT 96–100
--- NOTE | ~2022-10-11 | XR_ITS ---
EXAMINATION: XR CHEST CLINICAL INFORMATION: Follow-up small right pneumothorax. COMPARISON: 10/11/2022 TECHNIQUE: 2 views of the chest were obtained. FINDINGS: Lungs are mildly hypoinflated. The previously observed small right apical pneumothorax is nearly completely resolved and is now barely perceptible. There are linear, hazy opacities of mild bibasilar atelectasis without overt consolidation. Cardiac silhouette is normal in size. Pulmonary vascular pattern is normal. Posterior costophrenic sulci are blunted from trace pleural effusions. There appears to be persistent pneumoperitoneum. Surgical clips are seen in the epigastric region. XR/XR chest 2V IMPRESSION: * Mild bibasilar atelectasis and trace pleural effusions. * Interval near complete resolution of previously observed small right apical pneumothorax. * Persistent pneumoperitoneum.
--- NOTE | ~2022-10-11 | XR_ITS ---
EXAMINATION: XR CHEST CLINICAL INFORMATION: Right pneumothorax. COMPARISON: Chest CT scan dated 07/24/2022. TECHNIQUE: 2 views of the chest were obtained. FINDINGS: There is a small right apical pneumothorax. There is minimal blunting of the The heart and mediastinal structures are unremarkable. XR/XR chest 2V IMPRESSION: 1. Small right apical pneumothorax. 2. Minimal blunting of the costophrenic angles bilaterally may be projectional representing pleural scarring or very small pleural effusions.
[2022-10-11] MEDS: Lactated Ringers 1,000 ML 999 ML IV (06:57)
[2022-10-11] MEDS: Aprepitant 32 MG/4.4 ML VIAL IVPUSH (06:58)
--- NOTE | 2022-10-11 07:45 | PM.OP ---
Brief Operative Note Date of Service: 10/11/22 Pre-op diagnosis: Diaphragmatic hernia, GERD, esophageal diverticulum Post-op diagnosis: same Procedure: COMORBIDITIES: GERD, diaphragmatic hernia, BPH, hypertension,DJD, thoracic aortic dilation, migraines ?INDICATIONS: The patient is a 77 year old male who was referred to me from Dr. Ortiz for a diaphragmatic hernia and GERD confirmed by EGD, CT-chest and UGI. The UGI also revealed an esophageal diverticulum. The patient was referred to Dr. Simmons to determine whether this contributes to the patient's symptoms and the decision was made to proceed with the diaphragmatic hernia repair and determine after that whether any residual symptoms could be antributed to the divericulum. The patient is scheduled today for diaphragmatic hernia repair. Risks of recurrent hernia, dysphagia, persistent GERD, VTE, leak, infection and bleeding were discussed with the patient and he is in agreement with the plan. PROCEDURE: Esophago-gastroscopy, laparoscopic repair of incarcerated diaphragmatic hernia and laparoscopic gastropexy DESCRIPTION OF PROCEDURE: After informed consent was obtained from the patient, the patient was given preoperative antibiotics, and was transferred to the operating room. After successful induction of general anesthesia, pneumatic compression devices were placed on both lower extremities. An upper endoscopy was performed next. The oropharynx and esophagus appeared to be within normal limits. There was a diaphragmatic hernia present of moderate size consistent with the findings of the preoperative upper GI. The esophageal diverticulum could not be visualized endoscopically. The stomach was entered. Then after all fluid and air were suctioned and the stomach was fully decompressed, the scope was withdrawn and secured in the mid esophagus. The patient was then prepped and draped in the usual sterile manner, and abdominal access was established at the right upper quadrant with the Tripp technique. A 12 mm blunt port was inserted, and the abdomen was insufflated with CO2 to a pressure of 15 mmHg. Under direct visualization, additional ports were placed, specifically two 5 mm Versi-step ports to the left upper quadrant, and a 5 mm Versi-Step port to the right upper quadrant. 1% lidocaine plain was used to infiltrate all port sites as well as all fascia defects. Following that, the patient was placed in a steep reverse Trendelenburg position. An additional 5 mm port was placed to the right flank for the Mediflex retractor that was used to retract the left lobe of the liver. The gastro-esophageal fat pad was opened with the ultrasonic device (Thunderbeat, Olympus) and the anterior esophagus and hiatus were exposed. The angle of His was opened with the ultrasonic device the fundus of the stomach from any diaphragmatic and splenic attachments. I then opened the gastrocolic ligament between the transverse colon and the greater curvature of the stomach with the ultrasonic device to enter the lesser sac and facilitate the ligation of the short gastric vessels. I started at a mid-point along the greater curvature and using the Thunderbeat, all short gastric vessels were divided all the way to the angle of His until the left kayla was completely dissected at its entirety. There was an obvious significant-sized hiatal hernia. I continued dissecting along the hiatus toward the left kayla and the angle of His. There was a large replaced left hepatic artery which was carefully preserved. That made the dissection more challenging. Neveretheless, I fully mobilized the fat pad that was incarcerated in the hernia. I then continued by dissecting even further into the posterior retro-esophageal space all the way to the angle of His. I continued to mobilize the esophagus into the mediastinum circumferentially. Both vagal nerves were seen and preserved. At that point, I was able to have 5 cm of esophagus into the abdomen.? After I completely mobilized the esophagus from both the left and right kayla and I had a good mobilization of the esophagus circumferentially, I closed the hernia defect with three interrupted #0 Surgidac sutures using the Endo Stitch device, two of which were placed posterior and one of which anterior to the esophagus. ? A gastropexy was then performed in order to prevent postoperative GERD and partial gastric volvulus. Several interrupted 2.0 Surgidac sutures were placed between the greater curvature of the dissected stomach and the previously divided greater omentum and gastro-colic ligament using the Endo-Stitch device. ?An upper endoscopy was performed. There was no narrowing at the GE junction or any esophageal injury. The scope was easily advanced all the way to the pylorus which was clearly visualized. There was no narrowing anywhere. At that point the gastroscope was withdrawn from the patient?s mouth while we were decompressing the bowel and the stomach from any remaining air. I looked into the lesser sac to see how the stomach was situating and it was situating well. There was no bleeding from the, spleen, or short gastric vessels. The Mediflex retractor was removed, and the undersurface of the liver was inspected and there was no bleeding. The patient was placed in supine position. I closed the fascial defect of the 12 mm port site with a figure of eight #1 Polysorb suture. Then 30cc of Ropivacaine plain with 10 mg of Dexamethasone were used to infiltrate the fascial closure as well as all skin incisions. A total of 5ml of Zynrelef was applied in the Tripp wound. At this point, the abdomen was deflated, all ports were removed under direct vision, and no bleeding was noted from any of the port sites. The skin incisions were irrigated with saline and were closed with 4-0 absorbable monofilament sutures. Steri-Strips and OpSites were used to cover all incisions. The patient was extubated and was transferred in stable condition to the recovery room for further care. I was present and performed all conner parts of the procedure. Mr. Medel was the assistant account manager. There were no residents to assist with this case. James Hardy MD, PhD, FACS Surgeon: Bubba Hardy MD Anesthesia: GETA, local and other (TAP block and 5ml Zynrelef) Was an Straddle Truck Driver used for this Procedure?: No Straddle Truck Driver: Adis Medel Estimated blood loss (mL): 10 Urine output (mL): 0 (No Aguilera to record output) Pathology: other (periesophageal lymph node) Condition: stable Disposition: PACU
--- NOTE | 2022-10-11 07:50 | PM.PNGS ---
Subjective Subjective Date of Service: 10/12/22 Interval history: Feels well. Mild incisional pain. He is tolerating phase 1 bariatric diet Mild right chest pain which has improved from yesterday Physical Exam Vital Signs: Vital Signs: Last Vital Signs Temp 97.4 F 10/11/22 06:39 Pulse 46 L 10/11/22 06:39 Resp 16 10/11/22 06:39 BP 132/72 10/11/22 06:39 Pulse Ox 99 10/11/22 06:39 O2 Del Method Room Air 10/11/22 06:39 BMI result Body Mass Index 26.1 GI: Inspection: Yes normal to inspection, Yes incision (clean, dry and intact) and Yes obesity Palpation (GI): Soft to palpation Extrem: Right lower extremity: normal to inspection (no calf tenderness) Left lower extremity: normal to inspection (no calf tenderness) Objective Data Active Medications Lactated Ringer's (Lr) 1,000 mls @ 100 mls/hr IVCONT .Q10H MARIA C Labs 10/12/22 05:23 10/11/22 11:37 Labs: Laboratory Results - last 24 hr 10/10/22 12:07 COVID-19 (PONCE) Negative COVID-19 Clin Com See Note Procedures Date of Service Date of Service: 10/12/22 Progress Note: A&P Assessment and plan (1) Diaphragmatic hernia: Status: Acute Assessment and Plan: s/p laparoscopic sleeve gastrectomy, lysis of adhesions and gastropexy Doing well Will check am labs and if OK the patient will be discharged home (2) GERD (gastroesophageal reflux disease): Status: Acute (3) Esophageal diverticulum: Status: Acute (4) Essential hypertension: Status: Acute (5) Migraines: Status: Acute (6) BPH (benign prostatic hyperplasia): Status: Acute (7) Atherosclerotic cardiovascular disease: Status: Acute (8) DJD (degenerative joint disease): Status: Acute Time Spent With Patient Time: Total time managing care of this patient today ____ minutes. Quality Stroke Does the patient have a stroke diagnosis?: No VTE Prior VTE?: No VTE Risk Level:: Surgical - moderate VTE Device Contraindication: N/A - Device Ordered VTE Drug Contraindication: Treatment Not Indicated
--- NOTE | 2022-10-11 11:12 | PM.DS ---
DS: Providers Provider Date of Service: 10/12/22 Date of admission: 10/11/22 06:16 Primary care physician: LUIS Marie DS: Diagnosis Discharge Diagnosis (1) Diaphragmatic hernia: Status: Acute (2) GERD (gastroesophageal reflux disease): Status: Acute (3) Esophageal diverticulum: Status: Acute (4) Essential hypertension: Status: Acute (5) Migraines: Status: Acute (6) BPH (benign prostatic hyperplasia): Status: Acute (7) Atherosclerotic cardiovascular disease: Status: Acute (8) DJD (degenerative joint disease): Status: Acute DS: Summary Hospital Course Hospital Course: ADMITTING DIAGNOSIS: severe reflux, ? DISCHARGE DIAGNOSIS: same, s/p laparoscopic repair diaphragmatic hernia ? PAST SURGICAL HISTORY: appendectomy, small bowel resection ? PROCEDURE: upper endoscopy, laparoscopic repair of diaphragmatic hernia hernia ? DISCHARGE SUMMARY: ? History of Present Illness: ? The patient is a?77 year-old mlae with a BMI of?26.1 kg/m2 and associated co-morbidities as described above. The patient had extensive work-up preoperatively and was electively scheduled for laparoscopic, possible open diaphragmatic hernia repair and gastropexy. Risks and complications of the surgery were discussed with the patient in advance, particularly the possibility of , pulmonary embolism, anastomotic leak, bleeding, bowel injury, GERD, cardiac, renal or pulmonary complications. The patient understood all the risks and was in agreement with the surgical plan. ? Hospital Course: ? The patient underwent an uneventful laparoscopic repair of diaphragmatic hernia and gastropexy on the day of admission. Intra-operative small right pleural disrution identified and Post operative CXR confimed small apical pneumothorax. POD f/u cxr revealed near complete resolution of pneumothorax. He had no hypoxia and demonstrated excellent use of incentive spirometry. Postoperatively, the patient was transferred to the surgical floor. The patient received IV Acetaminophen and IV dilaudid for pain control. Patient was started on bariatric phase 1 diet POD #0. On postoperative day one, the patient was feeling well without nausea, vomiting, fevers, or tachycardia. The patient had some mild incisional pain and the abdomen was soft. ? On the morning of postoperative day one, the patient was continued on 1 ounce of water or ice every half hour. During the day, the patient did fairly well, having some incisional pain, but able to ambulate adequately and to tolerate liquids well. ? Since the patient is doing well, we decided that the patient was ready to be discharged. The patient was given instructions to follow-up with me next week and to call my office for any fever over 101, persistent abdominal pain, nausea, vomiting, GERD, symptoms of DVT such as calf tenderness, or leg swelling, or pulmonary embolism such as chest pain or shortness of breath. The patient was also instructed to drink 40-60 ounces of liquids per day using the 1-ounce cups. The patient had been given prescriptions for Tylenol for pain, Zofran prn for nausea, and pantoprazole and carafate previously. The patient was encouraged to ambulate and use the incentive spirometer. The patient was allowed to shower, but no baths, and encouraged to stay active at home. All of these instructions were given to the patient personally. All questions were answered and the patient understood all instructions, the instructions were also given to the patient in print. Time Spent with Patient Time attestation: Total time managing care of this patient today ____ minutes. Discharge coordination time: Less than 30 minutes Quality: Safe Use of Opioids Does Pt have an Active Cancer Diagnosis on the Problem List?: No Quality: Stroke Does the patient have a stroke diagnosis?: No Physical Exam Vital Signs: Vital Signs: Last Vital Signs Temp 97.4 F 10/11/22 06:39 Pulse 46 L 10/11/22 06:39 Resp 16 10/11/22 06:39 BP 132/72 10/11/22 06:39 Pulse Ox 99 10/11/22 06:39 O2 Del Method Room Air 10/11/22 06:39 BMI result Body Mass Index 26.1 DS: Data Data Completed and Pending Pending studies at discharge: Pending at discharge 10/11/22 09:53 Surgical [PTH] Routine Labs on day of discharge: Laboratory Results - last 24 hr 10/10/22 12:07 COVID-19 (PONCE) Negative COVID-19 Clin Com See Note Discharge Plan Discharge Anticipated Discharge Date/Time: 10/12/22 10:00 Patient Disposition: Home, Self-Care Discharge Diagnosis: s/p laparoscopic diaphragmatic hernia repair and gastropexy Referrals: Ko Parada PA [Primary Care Provider] - 1 Week Discharge Medications: Continued pantoprazole 40 mg tablet,delayed release (DR/EC) 40 mg PO BID 30 Days Qty: 60 11RF ondansetron 4 mg tablet,disintegrating 4 mg PO Q6H Qty: 30 0RF sucralfate 100 mg/mL suspension 10 ml PO BID Qty: 400 0RF cetirizine 10 mg Tablet 10 mg PO DAILY meclizine 25 mg Tablet 25 mg PO TID PRN (Reason: Dizziness) sumatriptan succinate 50 mg tablet 50 mg PO Q2-4H PRN (Reason: Headache) Rx Instructions: do not exceed 4 doses per 24 hrs tamsulosin 0.4 mg capsule 0.4 mg PO DAILY Held baclofen 10 mg tablet See Rx Instructions PO TID Qty: 120 1RF Hold Instructions: Resume on 10/24/22. Rx Instructions: 2 tabs at night, 1 tab in morning and afternoon orally 3 times a day; amlodipine 5 mg Tablet 5 mg PO DAILY Hold Instructions: Resume on 10/13/22. Check your blood pressure every evening and send it to Dr. Hardy. Do not take the medication before you hear from Dr. Hardy. Do not take the medication if your blood pressure is below 120/70 mmHg. aspirin [Adult Aspirin Regimen] 81 mg tablet,delayed release (DR/EC) 81 mg PO DAILY Hold Instructions: Resume on 11/02/22. Discontinued acetaminophen 500 mg tablet 500 mg PO QID PRN (Reason: Headache) simethicone [Gas-X Extra Strength] 125 mg capsule 125 mg PO BID-QID PRN (Reason: Gastric Reflux) Discharge Orders: Discharge Order (Routine); Ordered 10/12/22 Ordered By: Bubba Hardy Activity on Discharge: No heavy lifting Stand Alone Forms: Patient Portal Discharge page Care Plan Goals: improved reflux Health Concerns: GERD Plan of Treatment: No tub baths, sex or returning to work until discussed at first post op appointment. No exercise, alcohol, tobacco or illegal drug use. Continue to use incentive spirometer hourly while awake. Walk in home for 5- 10 minutes every 2 hours during the first week. Follow all instructions in the bariatric handbook and call with any questions.Discharge Instructions 1. Please call your doctor or come back to the emergency room should any new symptoms arise. 2. You will receive a courtesy call from [facility] 24-48 hours after discharge. 3. Activity: abstain from alcohol, practice limited stair climbing, no bending, no driving, no exercise, no illicit substances, no lifting, no sex, no tub bath, no work. 4. Diet: continue as discussed with Dr. Hardy. 5. Dressing Change/Wound Care: Your incision is covered by clear bandages and guaze underneath. If the area is tender, you may apply an ice pack for short intervals (no more than 20 minutes on, followed by at least 20 minutes off). Do not apply heat. Do not use creams, lotions, or topical antibiotics unless instructed to do so by your surgeon. These can cause infection or allergic reaction. 6. Call your doctor if: - Your temperature exceeds 101.5 F - You experience excessive pain or swelling - You have an unexpected reaction to medication - You have excessive bleeding - You experience continued vomiting/nausea - Your incision begins to separate - Your incision shows signs of infection such as increased redness, swelling, excessive pain, heat, or drainage (light blood or clear fluid is normal) 7. General instructions: No lifting greater than 5 lbs for the next 4 weeks. No driving within 24 hours of taking narcotic pain medications. If you do not move your bowels in the next 2 days, please take milk of magnesia over the counter. Please follow the post op diet and do not advance your diet until you are seen in the office in about 2 weeks. Please walk around your home every hour or two to prevent blood clots from forming in your legs. You do not need to wake from sleeping to walk. Please sleep in a bed or couch to prevent kinking at the hips and knees. Please take your incentive spirometer (your lung insurance customer service specialist) home with you and use it for the next few days to prevent pneumonias. You may shower, no hot tubs, baths or swimming pools. Please call the office with any questions or concerns such as increasing abdominal pain, fever, chills, shortness of breath, chest pain, leg pain or swelling, or redness or drainage from your incisions. Please stay on stage 3 diet which includes sugar free clear liquids such as ice pops and jello and broth and crystal light. Avoid all carbonation. Please drink 3 protein shakes with at least 25-30 grams of protein daily or 3 of the Celebrate 4:1 shakes which can be purchased in our office. The Celebrate shakes have all of the bariatric vitamins you need if you consume these shakes. If you are drinking other protein shakes, you will need to purchase the Celebrate multivitamins and calcium that we provide in the office (they will provide all the vitamins you need). Please make sure you are consuming at least 40-60 ounces of water in addition to your 3 protein shakes daily. Do not hesitate to contact the office with any questions at . The patient's medical history has been reviewed and they are considered low risk for post op DVT and therefore DVT prophylaxis is not considered necessary. Travel after surgery was reviewed. The patient has not disclosed any travel plans during the first 30 days after surgery and they have been advised that within the first 30 days after surgery any bus, plane, train or car travel over 2 hours in duration is contraindicated due to the possibility of developing blood clots from immobility. Any travel, needs to include periods of ambulation of 10 minutes in duration every 2 hours.? The patient was instructed to discuss any plans for travel during this period with their bariatric surgeon. Assessment: stable s/p laparoscopic diaphragmatic hernia repair and gastropexy
[2022-10-11] MEDS: Lactated Ringers 1,000 ML 100 ML IVCONT ×2 (11:40→18:06)
[2022-10-11 11:43] LABS: Hemoglobin 12.4 g/dl (14.0-18.0)
[2022-10-11 12:06] LABS: Anion Gap 10 (12-20); Blood Urea Nitrogen 9 mg/dL (9-16); Calcium 8.9 mg/dL (8.4-10.2); Carbon Dioxide 27 mmol/L (22-29); Chloride 105 mmol/L (96-108); Creatinine Clr Calc Pharmacy 72.1; Estimated Glomerular Filt Rate > 60; Glucose Random 154 mg/dL (60-115); Potassium 3.8 mmol/L (3.3-5.1); Sodium 138 mmol/L (135-145)
[2022-10-11] MEDS: ondansetron HCL 4 MG/2 ML VIAL IVPUSH ×2 (13:51→20:08)
[2022-10-11] MEDS: ceFAZolin Sodium/Dextrose,Iso 2 GM/50 ML PIGGYBACK IV (13:53)
[2022-10-11] MEDS: Acetaminophen 1,000 MG/100 ML PIGGYBACK 16.7 MG IV ×2 (15:24→20:08)
[2022-10-11] MEDS: HYDROmorphone HCl 0.5 MG/0.5 ML SYRINGE 0.25 MG IVPUSH ×2 (17:16→22:08)
[2022-10-11] MEDS: Famotidine/PF 20 MG/2 ML VIAL IVPUSH (20:08)
[2022-10-11] MEDS: 0.9 % Sodium Chloride Flush 3 ML SYRINGE IVFLUSH (20:09)
[2022-10-12] MEDS: Acetaminophen 1,000 MG/100 ML PIGGYBACK 16.7 MG IV ×2 (02:07→08:01)
[2022-10-12] MEDS: HYDROmorphone HCl 0.5 MG/0.5 ML SYRINGE 0.25 MG IVPUSH (02:13)
[2022-10-12 03:17] VITALS: BP 136/77; PULSE 56; RESP 18; TEMP 36.6; O2SAT 97
[2022-10-12] MEDS: Lactated Ringers 1,000 ML 100 ML IVCONT (03:44)
[2022-10-12] MEDS: ondansetron HCL 4 MG/2 ML VIAL IVPUSH (04:42)
[2022-10-12 07:22] LABS: MANUAL DIFF FLAG NO
[2022-10-12 07:27] LABS: Basophils Percent Auto 0.1 % (0-2); Hematocrit 35.6 % (42.0-52.0); Hemoglobin 11.5 g/dl (14.0-18.0); Imm Gran Abs Auto 0.02 X10*3/uL (0.00-0.03); Imm Gran Pct Auto 0.3 % (0.0-0.4); Lymphocytes Absolute Auto 1.2 X10*3/uL (1.2-4.9); Lymphocytes Percent Auto 17.8 % (20-40); Mean Corpuscular HGB Conc 32.3 g/dl (31.0-36.0); Mean Corpuscular Volume 86.6 fL (80.0-98.0); Mean Platelet Volume 11.9 fL (9.4-12.4); Monocytes Absolute Auto 0.6 X10*3/uL (0.1-1.2); Monocytes Percent Auto 8.9 % (2-11); Neutrophils Percent Auto 72.9 % (45-73); Platelet Count 161 X10*3/uL (160-400); Red Blood Count 4.11 X10*6/uL (4.60-5.80); Red Cell Distribution Width 13.2 % (11.0-16.0); White Blood Count 6.9 X10*3/uL (4.8-10.8)
[2022-10-12 07:37] VITALS: BP 148/74; PULSE 55; RESP 18; TEMP 36.3; O2SAT 97
[2022-10-12] MEDS: Famotidine/PF 20 MG/2 ML VIAL IVPUSH (08:01)
[2022-10-12] MEDS: amLODIPine Besylate 5 MG TABLET PO (08:01)
[2022-10-12] MEDS: Tamsulosin HCL 0.4 MG CAPSULE PO (08:01)
[2022-10-12 08:29] LABS: Anion Gap 15 (12-20); Blood Urea Nitrogen 9 mg/dL (9-16); Calcium 8.6 mg/dL (8.4-10.2); Carbon Dioxide 24 mmol/L (22-29); Chloride 102 mmol/L (96-108); Creatinine Clr Calc Pharmacy 75.1; Estimated Glomerular Filt Rate > 60; Glucose Random 106 mg/dL (60-115); Potassium 4.5 mmol/L (3.3-5.1); Sodium 136 mmol/L (135-145)
--- NOTE | 2022-10-12 09:37 | MHC.CM.PN ---
IMM DELIVERED PT LIVES ALONE IN A [facility]. INDEPENDENT AT BASELINE. HAS A DENTAL C-PAP THAT HE USES AT NIGHT. +HCP, + COVID VAX X4 PCP DR[facility] VILLAR [facility]. DP: PT HAS BEEN MEDICALLY CLEARED FOR DC HOME, NO SERVICES. PT S/O WILL TRANSPORT HOME.
--- NOTE | 2022-10-12 12:55 | HO.POSTANES ---
Post Anesthesia Evaluation Post Anesthesia Evaluation Date of Service: 10/11/22 Vital Signs: Vital Signs Temp Pulse Resp BP Pulse Ox O2 Del Method 10/12/22 10:23 Room Air 10/12/22 07:37 97.3 F 55 18 148/74 H 97 Room Air 10/12/22 03:17 97.8 F 56 18 136/77 97 Room Air Anesthesia: General Endotracheal-GETA Mental Status: Awake Pain Control: Satisfactory Nausea/Vomiting: None Hydration: Adequate Anesthesia-Related Issues: No Anes. Related Issues
== END 2022-10-12 10:23 | disposition home or self-care (01) | DRG 327 ==
LOC: HO.SSSA 11:17 → HO.S3 12:18
PROVIDERS: Physician Assistant Surgical; Admitting Provider Surgery; PCP Physician Assistant; Visit Provider Surgery
PROC: 0BQT4ZZ Repair Diaphragm, Percutaneous Endoscopic Approach (ICD-10-PCS; principal; 2022-10-11 07:30)
DX: K44.0 Diaphragmatic hernia with obstruction, without gangrene (principal); J95.811 Postprocedural pneumothorax; N40.0 Benign prostatic hyperplasia without lower urinary tract symptoms; G47.33 Obstructive sleep apnea (adult) (pediatric); K22.5 Diverticulum of esophagus, acquired; K21.9 Gastro-esophageal reflux disease without esophagitis; I10 Essential (primary) hypertension; M19.90 Unspecified osteoarthritis, unspecified site; G43.909 Migraine, unspecified, not intractable, without status migrainosus; Y83.8 Other surgical procedures as the cause of abnormal reaction of the patient, or of later complication, without mention of misadventure at the time of the procedure; I77.810 Thoracic aortic ectasia; Z20.822 Contact with and (suspected) exposure to COVID-19; Z79.82 Long term (current) use of aspirin; Z79.899 Other long term (current) drug therapy
CPT/HCPCS: 36415; 71046; 80048; 85014; 85018; 85025; 86850; 86900; 86901; 87635; 88305; C9088; C9145; J0131; J0690; J1100; J1170; J2250; J2405; J2795; J3010

== ENCOUNTER → 2022-10-17 09:58 | Outpatient (BNVA) | payer OTHER, MEDICARE, SELFPAY | PROVIDERS: PCP Physician Assistant; Visit Provider Surgery | DX: K44.9 Diaphragmatic hernia without obstruction or gangrene (principal); Z98.890 Other specified postprocedural states | CPT/HCPCS: 99212 ==

== ENCOUNTER → 2022-10-29 10:30 | Outpatient (BNVA) | payer OTHER, MEDICARE, SELFPAY | PROVIDERS: Visit Provider Internal Medicine Gastroenterology | DX: R06.6 Hiccough (principal); K44.9 Diaphragmatic hernia without obstruction or gangrene; K21.9 Gastro-esophageal reflux disease without esophagitis; Z80.0 Family history of malignant neoplasm of digestive organs | CPT/HCPCS: 99212 ==

== ENCOUNTER 2022-12-10 11:21 | Emergency (ER) | payer OTHER, SELFPAY ==
--- NOTE | ~2022-12-10 | CT_ITS ---
EXAMINATION: CT ABDOMEN AND PELVIS WITHOUT CONTRAST CLINICAL INFORMATION: Vomiting. Constipation. COMPARISON: CT abdomen pelvis 07/24/2022 TECHNIQUE: Multidetector volumetric imaging was performed from the superior aspect of the liver through the pubic symphysis. Sagittal and coronal reformatted images were obtained on the technologist's workstation. This CT examination was performed using dose optimization techniques as appropriate, variously including the following: *Automated exposure control *Adjustment of mA and/or kV according to patient size (this includes techniques or standardized protocols for targeted exams where dose is matched to indication/reason for exam; i.e. extremities or head) *Use of iterative reconstruction technique DLP: 490 mGy-cm FINDINGS: LUNG BASES: Stable small calcified granuloma at the left lung base. No acute airspace disease. No pleural effusion. LIVER, GALLBLADDER, AND BILIARY TREE: The liver is normal in size, shape, and attenuation. No focal hepatic lesion or biliary ductal dilatation is present. Small calcified granuloma in left lobe of liver. There is a thin layer of hyperdensity at the dependent gallbladder likely due to gallstones. There is no gallbladder wall thickening or edema around the gallbladder. There is no bile duct dilatation. PANCREAS: Unremarkable. SPLEEN: Small calcified granuloma within the spleen. ADRENAL GLANDS: Unremarkable. KIDNEYS AND URETERS: The kidneys are normal in size, shape, and attenuation. No hydronephrosis, hydroureter, or calculi seen. No perinephric stranding. Simple cyst in the parapelvic area left kidney measuring 5.3 cm. No follow-up imaging is recommended for simple renal cyst. BLADDER: Unremarkable. GASTROINTESTINAL TRACT: There are scattered diverticula throughout the colon. There is no diverticulitis. There is no bowel wall thickening /edema. There is no bowel obstruction. There is a moderate volume of stool in the colon. The appendix is nonvisualized . The small bowel loops are unremarkable. The stomach is normal. There is no hiatal hernia. There are surgical clips at the GE junction. ABDOMINAL WALL: No significant hernia is appreciated. LYMPH NODES: Normal. VASCULAR: Vascular calcifications of the abdomen and pelvis. There is no aneurysm. PELVIC VISCERA: Prostate measures 5.7 cm transverse OSSEOUS STRUCTURES: Multilevel degenerative spondylosis lower lumbar spine. CT/CT abdomen pelvis wo IV con IMPRESSION: 1. No acute abnormality CT scan abdomen pelvis. 2. Cholelithiasis. No acute change of gallbladder wall. No bile duct dilatation. 3. Diverticulosis of colon. No acute abnormality of the bowel. Fleischner guidelines were followed.
[2022-12-10 11:25] VITALS: BP 122/87; PULSE 73; RESP 17; TEMP 36.1; O2SAT 100; BMI 24.8
--- NOTE | 2022-12-10 11:27 | ED_ITS ---
HPI - General Adult General Chief complaint: General Medical Stated complaint: nausea vomiting surgery10/11 Time Seen by Provider: 12/10/22 11:53 Source: patient Mode of arrival: ambulatory Limitations: no limitations History of Present Illness HPI narrative: 77 y/o M with PMHx of HTN and diverticulosis with bowel resection in 2019 presents with 30 days of intermittent nausea and vomiting. Patient had surgery for hiatal hernia 10/11/22 and reports feeling well for a few weeks before the N/V started this month. His N/V lasts for a few days at a time and seems to come back every 1-3 days. During that time, he vomits a few times per day, but last night he vomited 5x, prompting this ED visit. He reports feeling dizzy and dehydrated. He states that he is rarely able to hold down food or drink and reports a 17 lb weight loss over this past month. He has tried taking Zofran, Sucralfate and Baclofen as perscribed by GI doctor which helped at first but no longer have effects. He also reports constipation for 1 day, but feels that it is related to Sucralfate usage. Pt denies abdominal pain, chest pain, SOB, and diarrhea. MD complaint: nausea and vomiting Onset (ago): week(s) Relieving factors: none Exacerbating factors: none Associated symptoms: denies other symptoms Treatments prior to arrival: none Related Data Home Medications Medication Instructions Recorded Confirmed aspirin 81 mg tablet,delayed 81 mg PO DAILY 11/04/20 10/04/22 release (Adult Aspirin Regimen) sumatriptan succinate 50 mg tablet 50 mg PO Q2-4H PRN Headache 11/04/20 10/04/22 tamsulosin 0.4 mg capsule 0.4 mg PO DAILY 11/04/20 10/04/22 amlodipine 5 mg tablet 5 mg PO DAILY 10/11/22 10/11/22 cetirizine 10 mg tablet 10 mg PO DAILY 10/11/22 10/11/22 meclizine 25 mg tablet 25 mg PO TID PRN Dizziness 10/11/22 10/11/22 Previous Rx's Medication Instructions Recorded ondansetron 4 mg disintegrating 4 mg PO Q6H nausea and vomiting 10/12/22 tablet #30 tabs pantoprazole 40 mg tablet,delayed 40 mg PO DAILY 30 days #30 tabs 10/29/22 release sucralfate 100 mg/mL oral 10 ml PO BID #400 mL 11/01/22 suspension baclofen 10 mg tablet 10 mg PO BEDTIME PRN muscle spasm 11/06/22 #30 tabs metoclopramide HCl 5 mg tablet 5 mg PO Q8H PRN nausea and 12/10/22 (Reglan) vomiting #30 tabs Allergies Allergy/AdvReac Type Severity Reaction Status Date / Time naproxen [From NAPROSYN] Allergy Intermediate TENSE,ANXIE Verified 10/29/22 10:37 TY duloxetine AdvReac Mild Headache Verified 10/29/22 10:37 glycopyrrolate AdvReac Mild tachycardia Verified 10/29/22 10:37 ibuprofen [From Advil] AdvReac Mild Gastrointestinal Verified 10/29/22 10:37 Upset pravastatin AdvReac Mild Anxiety Verified 10/29/22 10:37 Review of Systems Review of Systems: Yes all other systems are reviewed and are negative [facility] Past Medical History Medical History (Updated 12/10/22 @ 16:14 by LUIS Causey) Achilles tendon tear BPH (benign prostatic hyperplasia) Chronic hiccups DJD (degenerative joint disease) Essential hypertension Family history of colon cancer History of colon polyps History of stroke History of TIAs Migraines Nausea TOMY (obstructive sleep apnea) Preoperative cardiovascular examination Surgical History (Updated 10/29/22 @ 10:37 by MARIO Garcia) History of appendectomy History of carpal tunnel surgery of left wrist History of colonoscopy History of esophagogastroduodenoscopy (EGD) History of lumbar surgery History of repair of hiatal hernia History of resection of small bowel Family History Family History Father Diabetes Brother Colon cancer Sister Colon cancer Sister Colon cancer Breast cancer Social History Social History Household Members: Spouse Housing: House Are you a primary day care director to a significant other at home: No Do you presently have visiting nurse or other home services: No Patient Tobacco Use Status: Never used Tobacco Smoked in Last 30 Days: No e-Cigarette/Vaping Use: Never Used Second Hand Smoke Exposure: No Use of substances other than those prescribed or required for medical reasons: No Advance Directives: No Advance Directives Information Provided: No service: Yes Current occupational status: retired Physical Exam ED Vital Signs: Vital Signs - 24 hr 12/10/22 11:25 12/10/22 14:11 Temperature 97.0 F 97.7 F Pulse Rate 73 45 L Respiratory Rate 17 Blood Pressure 122/87 137/74 Pulse Oximetry 100 98 Oxygen Delivery Method Room Air Room Air BMI result Body Mass Index 24.8 Appearance: Alert. Oriented X3. No acute distress. Head: normocephalic, atraumatic. Eyes: Pupils equal, round and reactive to light. ENT: Pharynx normal. No tonsillar swelling or exudate. Neck: Normal inspection. Neck supple. CVS: Normal heart rate and rhythm. Pulses normal. Respiratory: No respiratory distress. Breath sounds normal. Abdomen: Soft and nontender. No rebound or guarding. +BS x4 Skin: Skin warm and dry. Normal skin color. Normal skin turgor. No rashes. Extremities: No lower extremity edema. No joint swelling. Neuro/psych: Oriented X 3. No motor deficit. No sensory deficit. CN II-XII intact. Normal speech and cognition. Course Course Course Narrative: This is an RME: Additional HPI, ROS, PE not included below will be deferred to primary provider. 77-year-old male history hiatal hernia s/p repair on 10/11/[address] Hardy, GERD, presenting w/ n/v, anorexia, early satiety X a few days worsening. Reached out to surgeon but he is away on vacation. Tells me he feels dehydrated. Plan- labs Medications Administered Discontinued Medications Generic Name Dose Route Start Last Admin Trade Name Freq PRN Reason Stop Dose Admin Sodium Chloride 1,000 mls @ 999 mls/hr 12/10/22 12:15 12/10/22 14:24 Ns IVCONT 12/10/22 13:15 Infused .Q1H1M MARIA C Infusion Metoclopramide HCl 5 mg 12/10/22 15:28 12/10/22 15:52 Metoclopramide Hcl 5 Mg Tablet PO 12/10/22 15:29 5 mg ONCE ONE Administration Medical Decision Making Medical Decision Making MDM Narrative: 77 y/o M with PMHx of HTN and diverticulosis with small bowel resection in 2019 presents with 30 days of intermittent nausea and vomiting. Patient relates his symptom onset with relation to his hiatal hernia surgery on 10/11/22. He states that he was feeling well prior to the surgery. Labs and CT ordered. Lab workup unremarkable. CT scan unremarkable. Patient given reglan and is tolerating PO in the ER. Dr. Neal is on vacation and back on Dec 15 - patient would like to follow up with him at that time. Comfortable w/ d/c home. Differential Diagnosis Differential Diagnoses: The differential diagnosis associated with the presentation includes dehydration, gastritis, GERD, dumping syndrome, malabsorption Admission/Observation Consideration of admission/observation: Escalation of care including admission/observation considered elderly male with recent GI surgery here w/ N/V and weight loss, considered admission Lab Data MDM Lab Attestation statement: I reviewed the patient's lab results. stable anemia, no evidence of dehydration 12/10/22 11:38 12/10/22 11:38 Labs: Lab Results 12/10/22 12/10/22 12/10/22 Range/Units 11:38 11:38 15:49 WBC 6.7 (4.8-10.8) X10*3/uL RBC 4.77 (4.60-5.80) X10*6/uL Hgb 13.0 L (14.0-18.0) g/dl Hct 40.6 L (42.0-52.0) % MCV 85.1 (80.0-98.0) fL MCH 27.3 (27.0-33.0) pg MCHC 32.0 (31.0-36.0) g/dl RDW 13.6 (11.0-16.0) % Plt Count 199 (160-400) X10*3/uL MPV 10.6 (9.4-12.4) fL Immature Gran % (Auto) 0.3 (0.0-0.4) % Neut % (Auto) 71.1 (45-73) % Lymph % (Auto) 20.7 (20-40) % Harris % (Auto) 6.0 (2-11) % Eos % (Auto) 1.7 (0-4) % Baso % (Auto) 0.2 (0-2) % Lymph # (Auto) 1.4 (1.2-4.9) X10*3/uL Harris # (Auto) 0.4 (0.1-1.2) X10*3/uL Eos # (Auto) 0.1 (0.0-0.4) X10*3/uL Baso # (Auto) 0.0 (0.0-0.2) X10*3/uL Abs Immat Gran (auto) 0.02 (0.00-0.03) X10*3/uL Absolute Neuts (auto) 4.7 (2.0-8.3) x10*3/uL Absolute Nucleated RBC 0.000 (0.0-0.012) X10*3/uL Nucleated RBC % (auto) 0.0 (0.0-0.2) /100WBC Sodium 140 (135-145) mmol/L Potassium 4.7 (3.3-5.1) mmol/L Chloride 104 (96-108) mmol/L Carbon Dioxide 24 (22-29) mmol/L Anion Gap 17 (12-20) BUN 8 L (9-16) mg/dL Creatinine 1.38 (0.5-1.4) mg/dL Estim Creat Clear Calc 52.2 Estimated GFR 50 Random Glucose 101 (60-115) mg/dL Calcium 10.0 D (8.4-10.2) mg/dL Magnesium 2.0 (1.6-2.6) mg/dL Total Bilirubin 0.9 (0.0-1.0) mg/dL AST 14 (5-37) U/L ALT 9 (0-40) U/L Alkaline Phosphatase 65 (39-117) U/L Total Protein 6.8 (6.5-8.0) g/dL Albumin 4.0 (3.5-5.0) g/dL Urine Color Yellow Urine Appearance Clear Urine pH 6.0 (5.0-9.0) Ur Specific Tobias <= 1.005 (1.005-1.025) Urine Protein Negative (Neg-Trace) mg/dL Urine Glucose (UA) Negative (Negative) mg/dL Urine Ketones Trace (Negative) mg/dL Urine Blood Negative (Negative) Urine Nitrite Negative (Negative) Ur Leukocyte Esterase Negative (Negative) Independent Interpretation I performed an independent interpretation of an: CT Scan Interpretation: CT without air/fluid levels to suggest SBO, agree w/ radiology read Radiology Impression Discussion of test interpretation with radiology: I have reviewed the radiologist's reading. Radiologist Impression: CT/CT abdomen pelvis wo IV con IMPRESSION: 1.? No acute abnormality CT scan abdomen pelvis. 2.? Cholelithiasis. No acute change of gallbladder wall. No bile duct dilatation. 3.? Diverticulosis of colon. No acute abnormality of the bowel. External Record Review External record reviewed: Office record, Outpatient record, Prior outpatient labs and Prior outpatient radiology Prescription Management I considered prescription management with: Other (pro-motility agent/antiemetic) Chronic Conditions Patient?s care impacted by: Hypertension and Other (gerd) Critical Care Time Critical Care Time Critical Care Time: No Discharge Plan Discharge Clinical Impression: Nausea & vomiting Patient Disposition: Home, Self-Care Instructions: Acute Nausea and Vomiting (ED) Additional Instructions: your CT scan today was unremarkable your lab workup was unremarkable follow up with Dr. Nael as soon as possible If you develop new or worsening symptoms call 911 or come back to the ER for further evaluation. Prescriptions: New metoclopramide HCl [Reglan] 5 mg tablet 5 mg PO Q8H PRN (Reason: nausea and vomiting) Qty: 30 0RF No Action ondansetron 4 mg tablet,disintegrating 4 mg PO Q6H Qty: 30 0RF sucralfate 100 mg/mL suspension 10 ml PO BID Qty: 400 2RF baclofen 10 mg tablet 10 mg PO BEDTIME PRN (Reason: muscle spasm) Qty: 30 1RF cetirizine 10 mg Tablet 10 mg PO DAILY amlodipine 5 mg Tablet 5 mg PO DAILY Hold Instructions: Resume on 10/13/22. Check your blood pressure every evening and send it to Dr. Hardy. Do not take the medication before you hear from Dr. Hardy. Do not take the medication if your blood pressure is below 120/70 mmHg. meclizine 25 mg Tablet 25 mg PO TID PRN (Reason: Dizziness) sumatriptan succinate 50 mg tablet 50 mg PO Q2-4H PRN (Reason: Headache) Rx Instructions: do not exceed 4 doses per 24 hrs tamsulosin 0.4 mg capsule 0.4 mg PO DAILY aspirin [Adult Aspirin Regimen] 81 mg tablet,delayed release (DR/EC) 81 mg PO DAILY Hold Instructions: Resume on 11/02/22. pantoprazole 40 mg tablet,delayed release (DR/EC) 40 mg PO DAILY 30 Days Qty: 30 11RF Referrals: Bubba Hardy MD [Physician] - Ko Parada PA [Primary Care Provider] -
[2022-12-10 11:41] LABS: MANUAL DIFF FLAG NO
[2022-12-10 11:44] LABS: Basophils Percent Auto 0.2 % (0-2); Eosinophils Absolute Auto 0.1 X10*3/uL (0.0-0.4); Eosinophils Percent Auto 1.7 % (0-4); Hematocrit 40.6 % (42.0-52.0); Imm Gran Abs Auto 0.02 X10*3/uL (0.00-0.03); Imm Gran Pct Auto 0.3 % (0.0-0.4); Lymphocytes Absolute Auto 1.4 X10*3/uL (1.2-4.9); Lymphocytes Percent Auto 20.7 % (20-40); Mean Corpuscular Hemoglobin 27.3 pg (27.0-33.0); Mean Corpuscular Volume 85.1 fL (80.0-98.0); Mean Platelet Volume 10.6 fL (9.4-12.4); Monocytes Absolute Auto 0.4 X10*3/uL (0.1-1.2); Neutrophils Absolute Auto 4.7 x10*3/uL (2.0-8.3); Neutrophils Percent Auto 71.1 % (45-73); Platelet Count 199 X10*3/uL (160-400); Red Blood Count 4.77 X10*6/uL (4.60-5.80); Red Cell Distribution Width 13.6 % (11.0-16.0); White Blood Count 6.7 X10*3/uL (4.8-10.8)
[2022-12-10 11:56] LABS: Alanine Aminotransferase 9 U/L (0-40); Alkaline Phosphatase 65 U/L (39-117); Anion Gap 17 (12-20); Aspartate Amino Transferase 14 U/L (5-37); Bilirubin Total 0.9 mg/dL (0.0-1.0); Blood Urea Nitrogen 8 mg/dL (9-16); Carbon Dioxide 24 mmol/L (22-29); Chloride 104 mmol/L (96-108); Creatinine Clr Calc Pharmacy 52.2; Estimated Glomerular Filt Rate 50; Glucose Random 101 mg/dL (60-115); Potassium 4.7 mmol/L (3.3-5.1); Sodium 140 mmol/L (135-145); Total Protein 6.8 g/dL (6.5-8.0)
[2022-12-10] MEDS: 0.9 % Sodium Chloride 1,000 ML 999 ML IVCONT (13:10)
--- NOTE | 2022-12-10 13:31 | PC.NURSE ---
pt a&o x4, pleasant, calm, and cooperative. IV established: 20g to RAC. IV fluids hung per jul. awaiting ua. wctm
[2022-12-10 14:11] VITALS: BP 137/74; PULSE 45; TEMP 36.5; O2SAT 98
[2022-12-10] MEDS: Metoclopramide HCl 5 MG TABLET PO (15:52)
[2022-12-10 16:05] LABS: Appearance Urine Clear; Color Urine Yellow; Glucose Urine UA Negative (Negative); Leukocyte Esterase Urine Negative (Negative); Nitrite Urine Negative (Negative); Specific Gravity - Urine <= 1.005 (1.005-1.025); Urine Blood Negative (Negative); Urine Ketones Trace mg/dL (Negative); Urine Protein Negative (Neg-Trace)
== END 2022-12-10 16:57 | disposition home or self-care (01) ==
PROVIDERS: Physician Assistant; Emergency Provider Emergency Medicine; PCP Physician Assistant
DX: R11.2 Nausea with vomiting, unspecified (principal); I10 Essential (primary) hypertension; K21.9 Gastro-esophageal reflux disease without esophagitis; R68.81 Early satiety; Z86.73 Personal history of transient ischemic attack (TIA), and cerebral infarction without residual deficits; Z79.82 Long term (current) use of aspirin; Z79.899 Other long term (current) drug therapy
CPT/HCPCS: 36415; 74176; 80053; 81003; 83735; 85025; 96360; 99284

== ENCOUNTER 2022-12-24 08:21 | Outpatient (AMB) | payer OTHER, MEDICARE, SELFPAY ==
--- NOTE | 2022-12-24 10:43 | MHC.OFFVISWM ---
Intake VS Expanded 12/24/22 10:44 Height 6 ft 1 in Weight 189 lb BMI 24.9 Intake Visit Reasons: TV 2MO PO Diaphragmatic Hernia 10/11/22 Allergies naproxen [From NAPROSYN] Allergy (Intermediate, Verified 10/29/22 10:37) TENSE,ANXIETY duloxetine Adverse Reaction (Mild, Verified 10/29/22 10:37) Headache glycopyrrolate Adverse Reaction (Mild, Verified 10/29/22 10:37) tachycardia ibuprofen [From Advil] Adverse Reaction (Mild, Verified 10/29/22 10:37) Gastrointestinal Upset pravastatin Adverse Reaction (Mild, Verified 10/29/22 10:37) Anxiety Medication List - Last Reconciled 12/24/22 by Bubba Hardy MD aspirin (Adult Aspirin Regimen) 81 mg PO DAILY metoclopramide HCl (Reglan) 5 mg PO Q8H PRN ondansetron 4 mg PO Q6H pantoprazole 40 mg PO DAILY 30 days sumatriptan succinate 50 mg PO Q2-4H PRN tamsulosin 0.4 mg PO DAILY HPI TV 2MO PO Diaphragmatic Hernia 10/11/22 HPI Details Start time: 10.43am, End time: 11.08am ?I spent 20 minutes speaking with the patient on the phone plus an additional 5 minutes reviewing and updating records for a total of 25 minutes HPI Comments History of Present Illness Details Wakes up with nausea, spits thick saliva every 3rd day Is doing breakfast including one egg, sausage and gritts, lunch (fish, rice and broccoli), dinner (fish, potatoes and broccoli) Snack: one nectarine PFSH Medical History (Updated 12/11/22 @ 00:02 by Ervin High) Achilles tendon tear BPH (benign prostatic hyperplasia) Chronic hiccups DJD (degenerative joint disease) Essential hypertension Family history of colon cancer History of colon polyps History of stroke History of TIAs Migraines Nausea TOMY (obstructive sleep apnea) Preoperative cardiovascular examination Surgical History (Updated 10/29/22 @ 10:37 by MARIO Garcia) History of appendectomy History of carpal tunnel surgery of left wrist History of colonoscopy History of esophagogastroduodenoscopy (EGD) History of lumbar surgery History of repair of hiatal hernia History of resection of small bowel Family History Father Diabetes Brother Colon cancer Sister Colon cancer Sister Colon cancer Breast cancer Social History Household Members: Spouse Housing: House Are you a primary patient care technician instructor to a significant other at home: No Do you presently have visiting nurse or other home services: No Patient Tobacco Use Status: Never used Tobacco e-Cigarette/Vaping Use: Never Used Second Hand Smoke Exposure: No service: Yes Current occupational status: retired Assessment & Plan Assessment & Plan (1) Status post repair of paraesophageal diaphragmatic hernia: Code(s): Z98.890 - Other specified postprocedural states; Z87.19 - Personal history of other diseases of the digestive system Plan: 1. Change nutritional plan to 2 Celebrate 4:1 shakes with one scoop each in 8oz almond milk at 8am-10am and 11am-1pm, lunch at 2pm (6 forks of protein and 6 forks of salad or vegetables), one Celebrate 4:1 shake (1 scoop in almond milk) at 4pm-6pm, dinner at 7pm? (6 forks of protein and 6 forks of salad or vegetables). 2. If you feel hungry at night please do one more Celebrate 4:1 shake (HALF scoop in almond milk) 3. Instead of dinner you can have breakfast or lunch but only one meal per day and not more than 12 forkfuls of food per meal 4. Drink the shakes slowly over a 2 hour period 5. Increase Pantoprazole to one pill every 12 hours 4. Update me how you are doing with the plan on (2) Nausea & vomiting: Code(s): R11.2 - Nausea with vomiting, unspecified Telehealth Telehealth Location of provider rendering services: practice address Location of patient: address on file Patient Identification confirmed using: Name, : Yes Telehealth method: voice only Patient verbally consented to treatment: Yes Patient verbally consented to billing insurance company: Yes Patient informed of any privacy concerns related to visit: Yes Minutes spent on Phone/Video with Pt.: 25 Coding Level of Care Code Tele Est Pt Level 3 (61113) Diagnoses Status post repair of paraesophageal diaphragmatic hernia Z98.890; Z87.19 Nausea & vomiting R11.2 Time Spent (min) 25
[2022-12-24 10:44] VITALS: BMI 24.9
== END 2022-12-24 11:09 | disposition home or self-care (01) ==
LOC: HO.HBS 08:21
PROVIDERS: PCP Physician Assistant; Visit Provider Surgery
DX: K44.9 Diaphragmatic hernia without obstruction or gangrene (principal); Z87.19 Personal history of other diseases of the digestive system; R11.2 Nausea with vomiting, unspecified
CPT/HCPCS: 99024

== ENCOUNTER → 2022-12-24 08:21 | Outpatient (BNVA) | payer OTHER, SELFPAY | PROVIDERS: PCP Physician Assistant; Visit Provider Surgery ==

== ENCOUNTER 2023-01-09 13:17 | Emergency (ER) | payer OTHER, MEDICARE, SELFPAY ==
--- NOTE | 2023-01-09 13:19 | ED.NAVMDI ---
HPI - Nausea/Vomiting/Diarrhea General Chief complaint: Nausea/Vomiting/Diarrhea Stated complaint: Vomiting Related Data Home Medications Medication Instructions Recorded Confirmed aspirin 81 mg tablet,delayed 81 mg PO DAILY 11/04/20 12/24/22 release (Adult Aspirin Regimen) sumatriptan succinate 50 mg tablet 50 mg PO Q2-4H PRN Headache 11/04/20 12/24/22 tamsulosin 0.4 mg capsule 0.4 mg PO DAILY 11/04/20 12/24/22 Previous Rx's Medication Instructions Recorded metoclopramide HCl 5 mg tablet 5 mg PO Q8H PRN nausea and 12/10/22 (Reglan) vomiting #30 tabs ondansetron 4 mg disintegrating 4 mg PO Q6H nausea and vomiting 01/01/23 tablet #30 tabs sucralfate 100 mg/mL oral 10 ml PO BID #414 mL 01/10/23 suspension Allergies Allergy/AdvReac Type Severity Reaction Status Date / Time naproxen [From NAPROSYN] Allergy Intermediate TENSE,ANXIE Verified 01/15/23 08:39 TY duloxetine AdvReac Mild Headache Verified 01/15/23 08:39 glycopyrrolate AdvReac Mild tachycardia Verified 01/15/23 08:39 ibuprofen [From Advil] AdvReac Mild Gastrointestinal Verified 01/15/23 08:39 Upset pravastatin AdvReac Mild Anxiety Verified 01/15/23 08:39 [facility] Past Medical History Medical History Achilles tendon tear BPH (benign prostatic hyperplasia) Chronic hiccups DJD (degenerative joint disease) Essential hypertension Family history of colon cancer History of colon polyps History of stroke History of TIAs Migraines Nausea TOMY (obstructive sleep apnea) Preoperative cardiovascular examination Surgical History History of appendectomy History of carpal tunnel surgery of left wrist History of colonoscopy History of esophagogastroduodenoscopy (EGD) History of lumbar surgery History of repair of hiatal hernia History of resection of small bowel Family History Family History Father Diabetes Brother Colon cancer Sister Colon cancer Sister Colon cancer Breast cancer Social History Social History Household Members: Spouse Housing: House Are you a primary adult daycare coordinator to a significant other at home: No Do you presently have visiting nurse or other home services: No Alcohol intake: never Patient Tobacco Use Status: Never used Tobacco Smoked in Last 30 Days: No e-Cigarette/Vaping Use: Never Used Second Hand Smoke Exposure: No Use of substances other than those prescribed or required for medical reasons: No Advance Directives: Yes Advance Directives on File: Yes Advance Directives Date on File: 10/15/22 service: Yes Current occupational status: retired Physical Exam Vital Signs: Vital Signs: Last Vital Signs Temp 98.2 F 01/09/23 13:20 Pulse 63 01/09/23 13:20 Resp 16 01/09/23 13:20 BP 137/83 01/09/23 13:20 Pulse Ox 97 01/09/23 13:20 O2 Del Method Room Air 01/09/23 13:20 BMI result Body Mass Index 25.9 Course Course Course Narrative: This is an RME: Additional HPI, ROS, PE not included below will be deferred to primary provider. 77 y/o M with PMHx of HTN and diverticulosis with bowel resection in 2019, CVA, TIA, DJD, HTN, TOMY, presents with intermittent nausea and vomiting. He has had this problem since October 11, after having hiatal hernia repair. He is currently being followed by Dr. Neal who recommended needs a different diet. Patient states that these episodes of nausea and vomiting last for approximately 30 hours. He is very tired of having the symptoms. He has no current pain. Patient is nontoxic appearing, vital signs within normal limits. Plan: Labs, further ER evaluation in department. Reevaluation(s) Reevaluation #1: pt eloped prior to being seen by primary provider Medical Decision Making Lab Data 01/09/23 13:53 01/09/23 13:53 Labs: Lab Results 01/09/23 01/09/23 Range/Units 13:53 13:53 WBC 5.3 (4.8-10.8) X10*3/uL RBC 4.32 L (4.60-5.80) X10*6/uL Hgb 11.9 L (14.0-18.0) g/dl Hct 36.4 L (42.0-52.0) % MCV 84.3 (80.0-98.0) fL MCH 27.5 (27.0-33.0) pg MCHC 32.7 (31.0-36.0) g/dl RDW 13.4 (11.0-16.0) % Plt Count 210 (160-400) X10*3/uL MPV 10.6 (9.4-12.4) fL Immature Gran % (Auto) 0.2 (0.0-0.4) % Neut % (Auto) 50.1 (45-73) % Lymph % (Auto) 37.6 (20-40) % [place] % (Auto) 6.8 (2-11) % Eos % (Auto) 4.5 H (0-4) % Baso % (Auto) 0.8 (0-2) % Lymph # (Auto) 2.0 (1.2-4.9) X10*3/uL [place] # (Auto) 0.4 (0.1-1.2) X10*3/uL Eos # (Auto) 0.2 (0.0-0.4) X10*3/uL Baso # (Auto) 0.0 (0.0-0.2) X10*3/uL Abs Immat Gran (auto) 0.01 (0.00-0.03) X10*3/uL Absolute Neuts (auto) 2.7 (2.0-8.3) x10*3/uL Absolute Nucleated RBC 0.000 (0.0-0.012) X10*3/uL Nucleated RBC % (auto) 0.0 (0.0-0.2) /100WBC Sodium 139 (135-145) mmol/L Potassium 4.0 (3.3-5.1) mmol/L Chloride 106 (96-108) mmol/L Carbon Dioxide 26 (22-29) mmol/L Anion Gap 11 L (12-20) BUN 8 L (9-16) mg/dL Creatinine 1.20 (0.5-1.4) mg/dL Estim Creat Clear Calc 56.6 Estimated GFR 59 Random Glucose 105 (60-115) mg/dL Calcium 9.5 (8.4-10.2) mg/dL Magnesium 1.9 (1.6-2.6) mg/dL Total Bilirubin 0.4 (0.0-1.0) mg/dL Direct Bilirubin 0.2 (0.0-0.5) mg/dL AST 15 (5-37) U/L ALT 9 (0-40) U/L Alkaline Phosphatase 59 (39-117) U/L Total Protein 6.7 (6.5-8.0) g/dL Albumin 4.1 (3.5-5.0) g/dL Lipase 27 (8-78) U/L Discharge Plan Discharge Clinical Impression: Nausea & vomiting Patient Disposition: Elopement Prescriptions: No Action ondansetron 4 mg tablet,disintegrating 4 mg PO Q6H Qty: 30 1RF sucralfate 100 mg/mL suspension 10 ml PO BID Qty: 414 0RF metoclopramide HCl [Reglan] 5 mg tablet 5 mg PO Q8H PRN (Reason: nausea and vomiting) Qty: 30 0RF sumatriptan succinate 50 mg tablet 50 mg PO Q2-4H PRN (Reason: Headache) Rx Instructions: do not exceed 4 doses per 24 hrs tamsulosin 0.4 mg capsule 0.4 mg PO DAILY aspirin [Adult Aspirin Regimen] 81 mg tablet,delayed release (DR/EC) 81 mg PO DAILY Hold Instructions: Resume on 11/02/22. Discharge Date/Time: 01/09/23 19:38
[2023-01-09 13:20] VITALS: BP 137/83; PULSE 63; RESP 16; TEMP 36.8; O2SAT 97; BMI 25.9
[2023-01-09 13:58] LABS: MANUAL DIFF FLAG NO
[2023-01-09 14:01] LABS: Basophils Percent Auto 0.8 % (0-2); Eosinophils Absolute Auto 0.2 X10*3/uL (0.0-0.4); Eosinophils Percent Auto 4.5 % (0-4); Hematocrit 36.4 % (42.0-52.0); Hemoglobin 11.9 g/dl (14.0-18.0); Imm Gran Abs Auto 0.01 X10*3/uL (0.00-0.03); Imm Gran Pct Auto 0.2 % (0.0-0.4); Lymphocytes Percent Auto 37.6 % (20-40); Mean Corpuscular HGB Conc 32.7 g/dl (31.0-36.0); Mean Corpuscular Hemoglobin 27.5 pg (27.0-33.0); Mean Corpuscular Volume 84.3 fL (80.0-98.0); Mean Platelet Volume 10.6 fL (9.4-12.4); Monocytes Absolute Auto 0.4 X10*3/uL (0.1-1.2); Monocytes Percent Auto 6.8 % (2-11); Neutrophils Absolute Auto 2.7 x10*3/uL (2.0-8.3); Neutrophils Percent Auto 50.1 % (45-73); Platelet Count 210 X10*3/uL (160-400); Red Blood Count 4.32 X10*6/uL (4.60-5.80); Red Cell Distribution Width 13.4 % (11.0-16.0); White Blood Count 5.3 X10*3/uL (4.8-10.8)
[2023-01-09 14:36] LABS: Alanine Aminotransferase 9 U/L (0-40); Albumin Level 4.1 g/dL (3.5-5.0); Alkaline Phosphatase 59 U/L (39-117); Anion Gap 11 (12-20); Aspartate Amino Transferase 15 U/L (5-37); Bilirubin Direct 0.2 mg/dL (0.0-0.5); Bilirubin Total 0.4 mg/dL (0.0-1.0); Blood Urea Nitrogen 8 mg/dL (9-16); Calcium 9.5 mg/dL (8.4-10.2); Carbon Dioxide 26 mmol/L (22-29); Chloride 106 mmol/L (96-108); Creatinine Clr Calc Pharmacy 56.6; Estimated Glomerular Filt Rate 59; Glucose Random 105 mg/dL (60-115); Lipase 27 U/L (8-78); Magnesium 1.9 mg/dL (1.6-2.6); Sodium 139 mmol/L (135-145); Total Protein 6.7 g/dL (6.5-8.0)
== END 2023-01-09 19:38 | disposition left against medical advice (07) ==
PROVIDERS: Physician Assistant Medical; Emergency Provider Emergency Medicine; PCP Physician Assistant
DX: R11.2 Nausea with vomiting, unspecified (principal); I10 Essential (primary) hypertension; Z86.73 Personal history of transient ischemic attack (TIA), and cerebral infarction without residual deficits; Z79.82 Long term (current) use of aspirin; Z79.899 Other long term (current) drug therapy
CPT/HCPCS: 36415; 80048; 80076; 83690; 83735; 85025; 99281; 99283

== ENCOUNTER 2023-01-15 08:24 | Emergency (ER) | payer OTHER, SELFPAY ==
--- NOTE | ~2023-01-15 | FL_ITS ---
EXAMINATION: XR FLUOROSCOPY UPPER GI WITH AIR CLINICAL INFORMATION: 77-year-old male complaining of nausea and vomiting as well as epigastric abdominal pain, and globus sensation. History of hiatal hernia repair 10/11/2022. COMPARISON: 07/24/2022. TECHNIQUE: Fluoroscopic air contrast upper GI examination was performed utilizing standard techniques with thin and thick barium and effervescent granules. Numerous spot images were obtained. FINDINGS: Lateral cine images of the oropharynx and hypopharynx demonstrate normal swallow mechanism with normal epiglottic inversion and soft palate elevation. No tracheal penetration, glottic or subglottic aspiration identified. No nasopharyngeal reflux present. The hypopharynx was noted to be somewhat patulous, however no diverticulum or pouch was evident and grossly the anatomy appears normal. There was no significant cricopharyngeal achalasia. Dual and single contrast images of the esophagus demonstrate a granular mucosal pattern in the mid and distal esophagus, suggestive of esophagitis. In the mid to distal esophagus, there is a small traction propulsion diverticulum, which appears unchanged from the prior exam and complex a small amount of barium contrast. Esophageal motility was extremely disordered, with abundant tertiary contractions and somewhat attenuated primary peristaltic wave. A recurrent hiatus hernia is noted at the GE junction, type I, small in size. There is mild narrowing at the GE junction at the level of the LES without functional obstruction or high-grade stricturing. Dual contrast and single contrast images of the stomach demonstrated normal contour and mild diffuse fold thickening without evidence of mass or ulceration. Contrast freely passed into the gastric antrum and duodenal bulb without significant delay. Single and air-contrast images of the duodenal bulb demonstrate no abnormality. The duodenal sweep has a normal appearance, course, and mucosal fold appearance. The imaged proximal jejunum has a normal fold pattern and caliber. FLUOROSCOPY TIME: 5.0 minutes Number of Spot Images: 51 DOSE AREA PRODUCT: 46.812 uGy-m2 (microgray-meter squared) FL/FL upper GI w air IMPRESSION: 1. Recurrent small type I hiatus hernia. Episodic mild to moderate gastroesophageal reflux. 2. Granular mucosa within the mid to distal esophagus, representing possible esophagitis. 3. 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 4. Stable small diverticulum arising from the mid to distal esophagus. 5. Mild fold thickening of the stomach noted, possibly representing gastritis versus underdistention. Findings communicated to LUIS Isbell via phone call at 11:15 AM 01/15/2023 .
[2023-01-15 08:35] VITALS: BP 119/88; PULSE 88; RESP 16; O2SAT 99; BMI 24.2
[2023-01-15 08:40] VITALS: PULSE 79
--- NOTE | 2023-01-15 08:41 | ECG_ITS ---
Test Reason : N/V - DIZZINESS Blood Pressure : / mmHG Vent. Rate : 062 BPM Atrial Rate : 062 BPM P-R Int : 194 ms QRS Dur : 092 ms QT Int : 376 ms P-R-T Axes : 021 -34 -18 degrees QTc Int : 381 ms Normal sinus rhythm with sinus arrhythmia Left axis deviation Abnormal ECG When compared with ECG of 13-SEP-2006 14:41, Inverted T waves have replaced nonspecific T wave abnormality in Inferior leads Referred By: Penny Kellogg Electronically Signed By:BECKY MAGALLANES
--- NOTE | 2023-01-15 08:46 | ED_ITS ---
HPI - Nausea/Vomiting/Diarrhea General Chief complaint: Nausea/Vomiting/Diarrhea Stated complaint: Vomiting Time Seen by Provider: 01/15/23 08:29 Source: patient and old records reviewed Mode of arrival: ambulatory Limitations: no limitations History of Present Illness HPI Narrative: 77 yo male with PMH of DJD, hiatal hernia, HTN, TOMY, BPH, resolved chronic hiccups here with c/o intermittent nausea and vomiting that will last for 24 to 30 hours at a time. He had diaphragmatic hernia and esophageal diverticulum repair back in October with Dr. Neal he notes he has been having vomiting for 24 hours with nausea and feels weak/dizzy. He was taken off his PPI and put on carafate but it isn't helping. He has been in close contact with the bariatric team and the plan was for outpatient UGI series. He came in today as he just feels very weak. He last ate a bagel. He vomits up thick white foamy liquid. He states he tries to be compliant with the diet but it is too hard MD elicited complaint: nausea and vomiting Pertinent past history: hernia Onset (ago): month(s) (since October) Description of vomiting: watery Description of diarrhea: watery Associated nausea: Yes Associated abdominal pain: Yes (intermittent upper abdominal discomfort) Location of pain: epigastric Radiation: epigastric Pain consistency: intermittent Severity: mild Quality: aching and dull Exacerbating factors: eating Relieving factors: none Context: recent surgery/procedure and history of abdominal surgery Associated symptoms: headaches, loss of appetite, malaise, nausea/vomiting and weakness Treatment prior to arrival: other (states he takes medications as prescribed) Related Data Home Medications Medication Instructions Recorded Confirmed aspirin 81 mg tablet,delayed 81 mg PO DAILY 11/04/20 12/24/22 release (Adult Aspirin Regimen) sumatriptan succinate 50 mg tablet 50 mg PO Q2-4H PRN Headache 11/04/20 12/24/22 tamsulosin 0.4 mg capsule 0.4 mg PO DAILY 11/04/20 12/24/22 Previous Rx's Medication Instructions Recorded metoclopramide HCl 5 mg tablet 5 mg PO Q8H PRN nausea and 12/10/22 (Reglan) vomiting #30 tabs ondansetron 4 mg disintegrating 4 mg PO Q6H nausea and vomiting 01/01/23 tablet #30 tabs sucralfate 100 mg/mL oral 10 ml PO BID #414 mL 01/10/23 suspension Allergies Allergy/AdvReac Type Severity Reaction Status Date / Time naproxen [From NAPROSYN] Allergy Intermediate TENSE,ANXIE Verified 01/15/23 08:39 TY duloxetine AdvReac Mild Headache Verified 01/15/23 08:39 glycopyrrolate AdvReac Mild tachycardia Verified 01/15/23 08:39 ibuprofen [From Advil] AdvReac Mild Gastrointestinal Verified 01/15/23 08:39 Upset pravastatin AdvReac Mild Anxiety Verified 01/15/23 08:39 Review of Systems Review of Systems: Constitutional : No Weight loss, No Fever, No Chills ENT/Mouth : No sore throat, No Rhinorrhea Eyes: No Swelling, No Redness Cardiovascular : No Chest Pain, No SOB, NoEdema Respiratory : No Cough, No Sputum, No Wheezing Gastrointestinal : Positive Nausea, Positive Vomiting, no Diarrhea, positive abdominal Pain, No Hematochezia, No Melena Genitourinary : No Dysuria, No Urinary Frequency, No Hematuria, No Urgency Musculoskeletal : No joint pain, No Myalgias, No Joint Swelling Skin : No Skin Lesions, No rash Neuro : pos Weakness, No Numbness, pos Dizziness, No Headache Psych : No Anxiety/Panic, No Depression All other systems reviewed and are negative. Gastrointestinal: Gastrointestinal: Reports nausea PMFSH Past Medical History Attestation statement: The following information was validated with the patient. Source: old records reviewed Medical History Achilles tendon tear BPH (benign prostatic hyperplasia) Chronic hiccups DJD (degenerative joint disease) Essential hypertension Family history of colon cancer History of colon polyps History of stroke History of TIAs Migraines Nausea TOMY (obstructive sleep apnea) Preoperative cardiovascular examination Surgical History History of appendectomy History of carpal tunnel surgery of left wrist History of colonoscopy History of esophagogastroduodenoscopy (EGD) History of lumbar surgery History of repair of hiatal hernia History of resection of small bowel Family History Family History Father Diabetes Brother Colon cancer Sister Colon cancer Sister Colon cancer Breast cancer Social History Social History Household Members: Spouse Housing: House Are you a primary career development consultant to a significant other at home: No Do you presently have visiting nurse or other home services: No Alcohol intake: never Patient Tobacco Use Status: Never used Tobacco Smoked in Last 30 Days: No e-Cigarette/Vaping Use: Never Used Second Hand Smoke Exposure: No Use of substances other than those prescribed or required for medical reasons: No Advance Directives: Yes Advance Directives on File: Yes Advance Directives Date on File: 10/15/22 service: Yes Current occupational status: retired Physical Exam Vital Signs: Vital Signs: Last Vital Signs Temp 98.4 F 01/15/23 11:41 Pulse 53 01/15/23 11:41 Resp 16 01/15/23 11:41 BP 138/72 01/15/23 11:41 Pulse Ox 100 01/15/23 11:41 O2 Del Method Room Air 01/15/23 11:41 BMI result Body Mass Index 24.2 Appearance: Alert. Oriented X3. No acute distress. Eyes: Pupils equal, round and reactive to light. ENT: Pharynx mild dry MM Neck: Normal inspection. Neck supple. CVS: Normal heart rate and rhythm. Pulses normal. Respiratory: No respiratory distress. Breath sounds normal. Abdomen: Soft and non-tender Skin: Skin warm and dry. Normal skin color. Normal skin turgor. Extremities: No lower extremity edema. No calf ttp Neuro: Oriented X 3. No motor deficit. No sensory deficit. Course Course Course Narrative: cannot obtain GI series per radiology Medications Administered Discontinued Medications Generic Name Dose Route Start Last Admin Trade Name Freq PRN Reason Stop Dose Admin Lactated Ringer's 1,000 mls @ 999 mls/hr 01/15/23 09:00 01/15/23 10:15 Lr IV 01/15/23 10:00 Infused .Q1H1M MARIA C Infusion Ondansetron HCl 4 mg 01/15/23 08:56 01/15/23 09:02 Ondansetron Hcl 4 Mg/2 Ml Vial IVPUSH 01/15/23 08:57 4 mg ONCE ONE Administration Medical Decision Making Medical Decision Making MDM Narrative: 77 yo male with PMH of DJD, hiatal hernia, HTN, TOMY, BPH, resolved chronic hiccups, esophageal dysmotility here with c/o intermittent bouts of n/v since surgery back in October. He is not totally compliant with his diet and is no longer on his PPI. He comes in today as he feels weak and dizzy. At this time I am going to obtain labs, EKG, hydrate and provide medications for nausea. UGI s eries ordered. His abdomen is benign on exam so I am not concerned about acute pathology at this time. Differential Diagnosis Differential Diagnoses: The differential diagnosis associated with the presentation includes dehydration, dysmotility, esophagitis, poor diet compliance Admission/Observation Consideration of admission/observation: Escalation of care including admission/observation considered normal labs, bariatric involved - patient feels he can go home, liquid diet until follow up appointment Consult Healthcare Provider Management of the patient was discussed with: Retail Worker (notified bariatric team on arrival ) outpatient pending further work up Lab Data MDM Lab Attestation statement: I reviewed the patient's lab results. 01/15/23 08:48 01/15/23 08:48 Labs: Lab Results 01/15/23 01/15/23 Range/Units 08:48 08:48 WBC 6.4 (4.8-10.8) X10*3/uL RBC 4.51 L (4.60-5.80) X10*6/uL Hgb 12.3 L (14.0-18.0) g/dl Hct 38.0 L (42.0-52.0) % MCV 84.3 (80.0-98.0) fL MCH 27.3 (27.0-33.0) pg MCHC 32.4 (31.0-36.0) g/dl RDW 13.7 (11.0-16.0) % Plt Count 205 (160-400) X10*3/uL MPV 10.8 (9.4-12.4) fL Immature Gran % (Auto) 0.3 (0.0-0.4) % Neut % (Auto) 53.4 (45-73) % Lymph % (Auto) 35.2 (20-40) % [place] % (Auto) 5.8 (2-11) % Eos % (Auto) 5.0 H (0-4) % Baso % (Auto) 0.3 (0-2) % Lymph # (Auto) 2.3 (1.2-4.9) X10*3/uL [place] # (Auto) 0.4 (0.1-1.2) X10*3/uL Eos # (Auto) 0.3 (0.0-0.4) X10*3/uL Baso # (Auto) 0.0 (0.0-0.2) X10*3/uL Abs Immat Gran (auto) 0.02 (0.00-0.03) X10*3/uL Absolute Neuts (auto) 3.4 (2.0-8.3) x10*3/uL Absolute Nucleated RBC 0.000 (0.0-0.012) X10*3/uL Nucleated RBC % (auto) 0.0 (0.0-0.2) /100WBC Sodium 142 (135-145) mmol/L Potassium 3.8 (3.3-5.1) mmol/L Chloride 107 (96-108) mmol/L Carbon Dioxide 29 (22-29) mmol/L Anion Gap 10 L (12-20) BUN 10 (9-16) mg/dL Creatinine 1.13 (0.5-1.4) mg/dL Estim Creat Clear Calc 63.8 Estimated GFR > 60 Random Glucose 93 (60-115) mg/dL Calcium 9.6 (8.4-10.2) mg/dL Phosphorus 3.0 (2.7-4.5) mg/dL Magnesium 2.0 (1.6-2.6) mg/dL Total Bilirubin 0.5 (0.0-1.0) mg/dL Direct Bilirubin 0.2 (0.0-0.5) mg/dL AST 13 (5-37) U/L ALT 8 (0-40) U/L Alkaline Phosphatase 54 (39-117) U/L Total Protein 6.7 (6.5-8.0) g/dL Albumin 4.0 (3.5-5.0) g/dL Lipase 24 (8-78) U/L Independent Interpretation I performed an independent interpretation of an: EKG and Plain X-Ray (UGI series ) Interpretation: Rate: 62 Rhythm: NSR [place]: left Normal P waves. Normal MAIA. Normal QRS complex. ST T wave : no NATHANIEL, inverted T waves III and aVF qTC: normal prior studies: no acute ischemia The study has been interpreted contemporaneously by me. . Radiology Impression Discussion of test interpretation with radiology: I have reviewed the radiologist's reading. External Record Review External record reviewed: Inpatient record and Office record Prescription Management I considered prescription management with: Other (has nausea medications at home) Discharge Plan Discharge Clinical Impression: Nausea & vomiting Qualifiers: Vomiting type: unspecified Qualified Code(s): R11.2 - Nausea with vomiting, unspecified Patient Disposition: Home, Self-Care Instructions: Acute Nausea and Vomiting (ED) Additional Instructions: liquid diet until your follow up appointment. return for fevers, pain, worsening symptoms, inability to eat or drink, weakness, dizziness or any other concerns. stay in touch with your surgery team. Prescriptions: No Action ondansetron 4 mg tablet,disintegrating 4 mg PO Q6H Qty: 30 1RF sucralfate 100 mg/mL suspension 10 ml PO BID Qty: 414 0RF metoclopramide HCl [Reglan] 5 mg tablet 5 mg PO Q8H PRN (Reason: nausea and vomiting) Qty: 30 0RF sumatriptan succinate 50 mg tablet 50 mg PO Q2-4H PRN (Reason: Headache) Rx Instructions: do not exceed 4 doses per 24 hrs tamsulosin 0.4 mg capsule 0.4 mg PO DAILY aspirin [Adult Aspirin Regimen] 81 mg tablet,delayed release (DR/EC) 81 mg PO DAILY Hold Instructions: Resume on 11/02/22.
[2023-01-15 08:54] LABS: MANUAL DIFF FLAG NO
[2023-01-15 08:55] LABS: Basophils Percent Auto 0.3 % (0-2); Eosinophils Absolute Auto 0.3 X10*3/uL (0.0-0.4); Hemoglobin 12.3 g/dl (14.0-18.0); Imm Gran Abs Auto 0.02 X10*3/uL (0.00-0.03); Imm Gran Pct Auto 0.3 % (0.0-0.4); Lymphocytes Absolute Auto 2.3 X10*3/uL (1.2-4.9); Lymphocytes Percent Auto 35.2 % (20-40); Mean Corpuscular HGB Conc 32.4 g/dl (31.0-36.0); Mean Corpuscular Hemoglobin 27.3 pg (27.0-33.0); Mean Corpuscular Volume 84.3 fL (80.0-98.0); Mean Platelet Volume 10.8 fL (9.4-12.4); Monocytes Absolute Auto 0.4 X10*3/uL (0.1-1.2); Monocytes Percent Auto 5.8 % (2-11); Neutrophils Absolute Auto 3.4 x10*3/uL (2.0-8.3); Neutrophils Percent Auto 53.4 % (45-73); Platelet Count 205 X10*3/uL (160-400); Red Blood Count 4.51 X10*6/uL (4.60-5.80); Red Cell Distribution Width 13.7 % (11.0-16.0); White Blood Count 6.4 X10*3/uL (4.8-10.8)
[2023-01-15] MEDS: Lactated Ringers 1,000 ML 999 ML IV (09:02)
[2023-01-15] MEDS: ondansetron HCL 4 MG/2 ML VIAL IVPUSH (09:02)
--- NOTE | 2023-01-15 09:05 | PC.NURSE ---
pt a&ox3. respirations even and unlabored. pt reports nausea and vomiting for one day with the inability to keep food or drink down. pt denies blood in vomit. pt denies diarrhea, chest pain or abdominal pain. pt abdomen soft, nontender with hypoactive bowel sounds in all 4 quadrants. normal sinus on tele. 20G placed in right AC.
[2023-01-15 09:10] LABS: Alanine Aminotransferase 8 U/L (0-40); Alkaline Phosphatase 54 U/L (39-117); Anion Gap 10 (12-20); Aspartate Amino Transferase 13 U/L (5-37); Bilirubin Direct 0.2 mg/dL (0.0-0.5); Bilirubin Total 0.5 mg/dL (0.0-1.0); Blood Urea Nitrogen 10 mg/dL (9-16); Calcium 9.6 mg/dL (8.4-10.2); Carbon Dioxide 29 mmol/L (22-29); Chloride 107 mmol/L (96-108); Creatinine Clr Calc Pharmacy 63.8; Estimated Glomerular Filt Rate > 60; Glucose Random 93 mg/dL (60-115); Lipase 24 U/L (8-78); Potassium 3.8 mmol/L (3.3-5.1); Sodium 142 mmol/L (135-145); Total Protein 6.7 g/dL (6.5-8.0)
[2023-01-15 11:41] VITALS: BP 138/72; PULSE 53; RESP 16; TEMP 36.9; O2SAT 100
== END 2023-01-15 13:30 | disposition home or self-care (01) ==
PROVIDERS: Emergency Provider Emergency Medicine; PCP Physician Assistant
DX: R11.2 Nausea with vomiting, unspecified (principal); I49.9 Cardiac arrhythmia, unspecified; R19.7 Diarrhea, unspecified; R51.9 Headache, unspecified; R53.1 Weakness; Z79.899 Other long term (current) drug therapy
CPT/HCPCS: 36415; 74246; 80048; 80076; 83690; 83735; 84100; 85025; 93005; 96361; 96374; 99285; J2405

== ENCOUNTER → 2023-01-15 08:42 | Outpatient (BNV) | payer MEDICARE, SELFPAY | PROVIDERS: Emergency Provider Emergency Medicine; PCP Physician Assistant; Visit Provider Radiology Diagnostic Radiology | DX: R11.2 Nausea with vomiting, unspecified (principal); R19.7 Diarrhea, unspecified | CPT/HCPCS: 74246 ==

== ENCOUNTER 2023-01-18 08:09 | Outpatient (AMB) | payer OTHER, SELFPAY ==
--- NOTE | 2023-01-18 17:59 | A.OFFVIS_ITS ---
Intake Intake Visit Reasons: TV PO Diaphragmatic Hernia 10/11/22 Allergies naproxen [From NAPROSYN] Allergy (Intermediate, Verified 01/15/23 08:39) TENSE,ANXIETY duloxetine Adverse Reaction (Mild, Verified 01/15/23 08:39) Headache glycopyrrolate Adverse Reaction (Mild, Verified 01/15/23 08:39) tachycardia ibuprofen [From Advil] Adverse Reaction (Mild, Verified 01/15/23 08:39) Gastrointestinal Upset pravastatin Adverse Reaction (Mild, Verified 01/15/23 08:39) Anxiety HPI TV PO Diaphragmatic Hernia 10/11/22 HPI Details Start time: 2.30pm, End time: 3pm I spent 25 minutes speaking with the patient on the phone plus an additional 5 minutes reviewing and updating records for a total of 30 minutes HPI Comments History of Present Illness Details Patient had a laparoscopic hiatal hernia repair on 10/11/22. The last 6 weeks has been reporting intermittent nausea every 3rd or 4th day which is at times is associated with vomiting. The patient had a CT-chest on 12/10/22 which showed no evidence of a recurrent hiatal hernia. The patient underwent an UGI study a few days ago which showed esophageal dysmotility and was read by the radiologist as having a small recurrent hiatal hernia. No significant stenosis or hold-up of contrast was noted at the GE junction. That was no obvious in my review. No GERD was reported. A CT-chest was repeated today which I reviewed (and also dictated by the Radiologist) as no evidence of recurrent hiatal hernia or inflammation at the distal esophagus. The esophagus also appears less distended than previous CTs. [facility] Medical History Achilles tendon tear BPH (benign prostatic hyperplasia) Chronic hiccups DJD (degenerative joint disease) Essential hypertension Family history of colon cancer History of colon polyps History of stroke History of TIAs Migraines Nausea TOMY (obstructive sleep apnea) Preoperative cardiovascular examination Surgical History History of appendectomy History of carpal tunnel surgery of left wrist History of colonoscopy History of esophagogastroduodenoscopy (EGD) History of lumbar surgery History of repair of hiatal hernia History of resection of small bowel Family History Father Diabetes Brother Colon cancer Sister Colon cancer Sister Colon cancer Breast cancer Social History Household Members: Spouse Housing: House Are you a primary special needs child caregiver to a significant other at home: No Do you presently have visiting nurse or other home services: No Alcohol intake: never Patient Tobacco Use Status: Never used Tobacco e-Cigarette/Vaping Use: Never Used Second Hand Smoke Exposure: No Advance Directives Date on File: 10/15/22 service: Yes Current occupational status: retired Assessment & Plan Assessment & Plan (1) Status post repair of paraesophageal diaphragmatic hernia: Code(s): Z98.890 - Other specified postprocedural states; Z87.19 - Personal history of other diseases of the digestive system Plan: Findings of recent xrays were discussed in detail with the patient. I recommended an upper endoscopy to assess the esophageal mucosa and the GE junction. I asked the patient to stop the aspiring today. The patient is in agreement with the plan and we will schedule the procedure for net . (2) Esophageal dysmotility: Code(s): K22.4 - Dyskinesia of esophagus Telehealth Telehealth Location of provider rendering services: practice address Location of patient: address on file Patient Identification confirmed using: Name, : Yes Telehealth method: voice only Patient verbally consented to treatment: Yes Patient verbally consented to billing insurance company: Yes Patient informed of any privacy concerns related to visit: Yes Minutes spent on Phone/Video with Pt.: 30 Coding Level of Care Code Tele Est Pt Level 4 (30720) Diagnoses Status post repair of paraesophageal diaphragmatic hernia Z98.890; Z87.19 Esophageal dysmotility K22.4 Time Spent (min) 30
== END 2023-01-18 18:09 | disposition home or self-care (01) ==
LOC: HO.HBS 08:09
PROVIDERS: PCP Physician Assistant; Visit Provider Surgery
DX: K22.4 Dyskinesia of esophagus (principal); Z98.890 Other specified postprocedural states; Z87.19 Personal history of other diseases of the digestive system
CPT/HCPCS: 99214

== ENCOUNTER 2023-01-18 14:08 | Outpatient (REF) | payer OTHER, SELFPAY ==
--- NOTE | ~2023-01-18 | CT_ITS ---
EXAMINATION: CT CHEST WITHOUT CONTRAST CLINICAL INFORMATION: Difficulty swallowing and nausea. History of hiatal hernia repair. COMPARISON: Chest CT from 07/24/2022. Upper GI series from 01/15/2023. TECHNIQUE: Noncontrast multidetector CT imaging examination of the chest is performed. Axial images and multiplanar reformatted images are reviewed. This CT examination was performed using dose optimization techniques as appropriate, variously including the following: *Automated exposure control. *Adjustment of mA and/or kV according to patient size (this includes techniques or standardized protocols for targeted exams where dose is matched to indication/reason for exam, i.e., extremities or head). *Use of iterative reconstruction technique. DLP: 307 mGy-cm FINDINGS: LUNGS AND PLEURA: Lungs are well expanded. Mild patchy groundglass opacity is seen around some of the bronchi in the anterior segment of the right upper lobe; this has a stable appearance compared to 07/24/2022 (images 90-94, series 7) and could be sequela of remote infectious or inflammatory process. No suspicious lung lesion. An old calcified granuloma is present in the lateral left lower lobe. No pleural effusion or pneumothorax. CARDIOVASCULAR: The heart size is normal. No pericardial effusion. Atherosclerotic calcifications of coronary arteries are present. Pulmonary arteries are normal in caliber. There is atherosclerosis of the thoracic aorta without aneurysm. MEDIASTINUM AND LOWER NECK: No mediastinal mass. A small amount of barium contrast is present within the esophageal diverticulum located inferior to the level of the sincere. This diverticulum was present on the chest CT of 07/24/2022. The distal esophagus is underdistended. The fat planes around the distal esophagus are normal. No pneumomediastinum. No hiatal hernia is seen on these images obtained with the patient in supine position. LYMPHATICS: Small calcified lymph node is present within the posteroinferior mediastinum. Also, calcified left infrahilar lymph nodes are present from old granulomatous disease. UPPER ABDOMEN: Streak artifact is produced by residual barium contrast within the colon. Adrenal glands are normal. Surgical clips are seen in the epigastric region. Small calcified granuloma within the anterior liver. Small simple cyst is present in the right lobe of the liver. No suspicious hepatic lesion. There are a few calcified granulomas of the spleen. SKELETAL AND CHEST WALL: Chest baptiste unremarkable. No acute or suspicious osseous abnormality. CT/CT chest wo con - High Res IMPRESSION: * No acute pulmonary abnormality. * An area of mild patchy groundglass opacity in the anterior segment of the right upper lobe remains similar in appearance compared to 07/24/2022. This could be sequela of remote infection or inflammation (perhaps secondary to the old granulomatous disease). * Again noted is an esophageal diverticulum, also present on the chest CT from 07/24/2022.
== END 2023-01-18 14:09 | disposition home or self-care (01) ==
LOC: HO.CT 14:08
PROVIDERS: Visit Provider Surgery
DX: R11.2 Nausea with vomiting, unspecified (principal); K22.4 Dyskinesia of esophagus
CPT/HCPCS: 71250

== ENCOUNTER 2023-01-24 08:22 | Day surgery (SDC) | payer OTHER, SELFPAY ==
--- NOTE | 2023-01-23 10:36 | P.CONAN_ITS ---
Documented by User: Maye Rodríguez NP 01/23/23 10:43 HPI - Anesthesia Eval Consult details Narrative: 77yo M for Upper Endoscopy s/p lap diaphragm hernia repair 10/2022 with GETA Cardiac optimized prior to hernia repair. [facility] Active Problems Active Problems: All Active Problems (Updated 01/16/23 @ 00:01 by Ervin High) Status post repair of paraesophageal diaphragmatic hernia (Acute) DJD (degenerative joint disease) (Acute) Atherosclerotic cardiovascular disease (Acute) Obstruction concurrent with and due to paraesophageal hernia (Acute) Chronic hiccups (Acute) Hiatal hernia (Acute) Diaphragmatic hernia (Acute) GERD (gastroesophageal reflux disease) (Acute) Esophageal dysmotility (Acute) Esophageal diverticulum (Acute) Diverticulosis of colon (Acute) History of diverticulitis (Acute) History of colon polyps (Acute) History of TIAs (Acute) History of stroke (Acute) TOMY (obstructive sleep apnea) (Acute) Essential hypertension (Acute) Elevated fasting blood sugar (Acute) Normocytic anemia (Acute) Eosinophil count raised (Acute) Migraines (Acute) Cervicalgia (Acute) BPH (benign prostatic hyperplasia) (Acute) Past Medical History Medical History Achilles tendon tear BPH (benign prostatic hyperplasia) Chronic hiccups DJD (degenerative joint disease) Essential hypertension Family history of colon cancer History of colon polyps History of stroke History of TIAs Migraines Nausea TOMY (obstructive sleep apnea) Preoperative cardiovascular examination Family History Family History Father Diabetes Brother Colon cancer Sister Colon cancer Sister Colon cancer Breast cancer Family history of problems with anesthesia: No Surgical History Surgical History History of appendectomy History of carpal tunnel surgery of left wrist History of colonoscopy History of esophagogastroduodenoscopy (EGD) History of lumbar surgery History of repair of hiatal hernia History of resection of small bowel History of Problems with Anesthesia: No Social History Social History Household Members: Spouse Housing: House Are you a primary foster care therapist to a significant other at home: No Do you presently have visiting nurse or other home services: No Alcohol intake: never Patient Tobacco Use Status: Never used Tobacco e-Cigarette/Vaping Use: Never Used Second Hand Smoke Exposure: No Advance Directives Date on File: 10/15/22 service: Yes Current occupational status: retired Meds Allergies Allergy/AdvReac Type Severity Reaction Status Date / Time naproxen [From NAPROSYN] Allergy Intermediate TENSE,ANXIE Verified 01/15/23 08:39 TY duloxetine AdvReac Mild Headache Verified 01/15/23 08:39 glycopyrrolate AdvReac Mild tachycardia Verified 01/15/23 08:39 ibuprofen [From Advil] AdvReac Mild Gastrointestinal Verified 01/15/23 08:39 Upset pravastatin AdvReac Mild Anxiety Verified 01/15/23 08:39 Home Medications Medication Instructions Recorded Confirmed Last Taken Type aspirin 81 mg tablet,delayed 81 mg PO DAILY 11/04/20 12/24/22 10/04/22 History release (Adult Aspirin Regimen) sumatriptan succinate 50 mg tablet 50 mg PO Q2-4H PRN Headache 11/04/20 12/24/22 Unknown History tamsulosin 0.4 mg capsule 0.4 mg PO DAILY 11/04/20 12/24/22 Unknown History Exam Exam Date and Time: January 23, 2023 1036 Pertinent Lab Results Pertinent Lab Results: Laboratory Tests 01/15/23 08:48 WBC 6.4 Hgb 12.3 L Hct 38.0 L Plt Count 205 Sodium 142 Potassium 3.8 Chloride 107 Carbon Dioxide 29 BUN 10 Creatinine 1.13 Narrative Narrative: EKG 01/2023 Interpretation by ED MD: Rate: 62 Rhythm: NSR [place]: left Normal P waves. Normal MAIA. Normal QRS complex. ST T wave : no NATHANIEL, inverted T waves III and aVF qTC: normal prior studies: no acute ischemia ECHO 09/2022 Conclusions: - The left ventricular systolic function is normal. The calculated ejection fraction is 57% by biplane method. - No obvious valvular pathology seen on this study. 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 Assessment and Plan Assessment Anesthesia Assessment: Chart Reviewed Final Anesthetic Review Family History of Problems with Anesthesia: No History of Problems with Anesthesia: No Documented by User: Kirt Sharma MD 01/24/23 16:43 HPI - Anesthesia Eval Consult details Narrative: 77yo M for Upper Endoscopy s/p lap diaphragm hernia repair 10/2022 with GETA Cardiac optimized prior to hernia repair. TIA PMFSH Past Medical History Medical History Achilles tendon tear BPH (benign prostatic hyperplasia) Chronic hiccups DJD (degenerative joint disease) Essential hypertension Family history of colon cancer History of colon polyps History of stroke History of TIAs Migraines Nausea TOMY (obstructive sleep apnea) Preoperative cardiovascular examination Family History Family History Father Diabetes Brother Colon cancer Sister Colon cancer Sister Colon cancer Breast cancer Surgical History Surgical History History of appendectomy History of carpal tunnel surgery of left wrist History of colonoscopy History of esophagogastroduodenoscopy (EGD) History of lumbar surgery History of repair of hiatal hernia History of resection of small bowel Social History Social History Household Members: Spouse Housing: House Are you a primary foster care therapist to a significant other at home: No Do you presently have visiting nurse or other home services: No Alcohol intake: never Patient Tobacco Use Status: Never used Tobacco e-Cigarette/Vaping Use: Never Used Second Hand Smoke Exposure: No Advance Directives Date on File: 10/15/22 service: Yes Current occupational status: retired Meds Allergies Allergy/AdvReac Type Severity Reaction Status Date / Time naproxen [From NAPROSYN] Allergy Intermediate TENSE,ANXIE Verified 01/15/23 08:39 TY duloxetine AdvReac Mild Headache Verified 01/15/23 08:39 glycopyrrolate AdvReac Mild tachycardia Verified 01/15/23 08:39 ibuprofen [From Advil] AdvReac Mild Gastrointestinal Verified 01/15/23 08:39 Upset pravastatin AdvReac Mild Anxiety Verified 01/15/23 08:39 Home Medications Medication Instructions Recorded Confirmed Last Taken Type aspirin 81 mg tablet,delayed 81 mg PO DAILY 11/04/20 12/24/22 10/04/22 History release (Adult Aspirin Regimen) sumatriptan succinate 50 mg tablet 50 mg PO Q2-4H PRN Headache 11/04/20 12/24/22 Unknown History tamsulosin 0.4 mg capsule 0.4 mg PO DAILY 11/04/20 12/24/22 Unknown History Exam Airway Mallampati Class: III Loose/Missing/Broken Teeth: Yes (chipped upper left ) Assessment and Plan Assessment Anesthesia Assessment: Anesthesia Plan Discussed Final Anesthetic Review NPO: Yes ASA Class: III Final Preanesthetic Review: Meds/Allgs Chart Reviewed, Consent Obtained/Reviewed and Anes Risks/Benef Reviewed Patient Risk: Intermediate Procedure Risk: Intermediate Anesthetic Plan Anesthetic Plan: MAC: Disposition: Standard PACU
[2023-01-24 08:42] VITALS: BMI 26.4
[2023-01-24] MEDS: Lactated Ringers 1,000 ML 80 ML IVCONT (09:00)
[2023-01-24 09:05] VITALS: BP 140/79; PULSE 54; RESP 16; TEMP 36.6; O2SAT 98
--- NOTE | 2023-01-24 10:28 | PM.OP ---
Brief Operative Note Date of Service: 01/24/23 Pre-op diagnosis: Nausea, vomiting s/p laparoscopic diaphragmatic hernia repair Post-op diagnosis: same Procedure: PROCEDURE DATE: 01/24/2023 PREOPERATIVE DIAGNOSIS: Nausea and vomiting, s/p laparoscopic dipahragmatic hernia repair POSTOPERATIVE DIAGNOSIS: ?Same as above. Gastritis proximal fundus PROCEDURE: [id number] with biopsies Surgeon: ?James Hardy M.D.. Ph.D. Opening Machine Cleaner: None ? Anesthesia: IV sedation Estimated blood loss: ?Minimal FINDINGS AND PROCEDURE: ? OPERATIVE INDICATIONS: ?The patient is a 77 year old male known to me who underwent a laparoscopic diaphragmatic hernia repair. The patient has been having symptoms of nausea and vomiting foam every 3-4 days. In between he is well. The patient had an UGI which was read as having a recurrent hiatal hernia which was not my interpretation. In addition, she had two CTs of the chest which both did not reveal any hiatal hernia. Based on this information I recommended an upper endoscopy to evaluate the patient's symptoms. Risks and complications of the surgery were discussed with the patient in advance particularly the possibility of perforation or bleeding that may require surgical intervention. The patient understood the risks and was in agreement with the plan. ? PROCEDURE: After informed consent was obtained by the patient, the patient was ?transferred to the Operating Room and was placed in the supine position.? After successful induction of IV sedation, a mouth block was inserted and the patient was placed in the left lateral decubitus position. An upper endoscopy was performed next, the oropharynx and esophagus appeared within the normal limits. There was no significant hiatal hernia. The z-line was smooth. There was no stricture at the GE junction and the lower esophageal sphincter function seemed intact with good closure of the junction between peristaltic waves. The stomach was entered and it appeared to be of normal size. There was gastritis of the fundal area at the area where the dissection of the short gastric vessels was done and where the gastropexy is. The etiology is unclear but it could be a result of some ischemia in this area. Two biopsies were obtained from this area and one additional biopsy was obtained from the antrum. There was no ulcer. No significant bleeding was noted from any of the biopsy sites. At that point the duodenum ?and the stomach were decompressed and the scope was withdrawn from the patient's mouth. The patient extubated and was transferred in stable condition to the Recovery Room for further care. I was present and performed all steps of the procedure. There were no residents to assist with this case. James Hardy M.D., Ph.D. Surgeon: Bubba Hardy MD Anesthesia: MAC Was an Opening Machine Cleaner used for this Procedure?: No Estimated blood loss (mL): 0 Urine output (mL): 0 (No Aguilera to record output) Pathology: other (1) gastric fundus x2, 2) antrum x1) Condition: stable Disposition: PACU
[2023-01-24 11:18] VITALS: BP 139/78; PULSE 44; RESP 14; TEMP 36.3; O2SAT 100
[2023-01-24 11:48] VITALS: BP 143/76; PULSE 45; RESP 18; TEMP 36.2; O2SAT 97
[2023-01-24 12:02] VITALS: BP 145/77; PULSE 41; RESP 18; TEMP 36.1; O2SAT 97
== END 2023-01-24 12:43 | disposition home or self-care (01) ==
PROVIDERS: PCP Physician Assistant; Visit Provider Surgery
PROC: 0DJ08ZZ Inspection of Upper Intestinal Tract, Via Natural or Artificial Opening Endoscopic (ICD-10-PCS; CPT 43235; principal; 2023-01-24 10:10)
DX: K22.4 Dyskinesia of esophagus (principal); K91.0 Vomiting following gastrointestinal surgery; K29.50 Unspecified chronic gastritis without bleeding; Y83.8 Other surgical procedures as the cause of abnormal reaction of the patient, or of later complication, without mention of misadventure at the time of the procedure; N40.0 Benign prostatic hyperplasia without lower urinary tract symptoms; R06.6 Hiccough; I10 Essential (primary) hypertension; G47.33 Obstructive sleep apnea (adult) (pediatric); Z86.73 Personal history of transient ischemic attack (TIA), and cerebral infarction without residual deficits; Z80.0 Family history of malignant neoplasm of digestive organs; Z86.010 Personal history of colon polyps; Z87.19 Personal history of other diseases of the digestive system; Z98.890 Other specified postprocedural states; Z79.82 Long term (current) use of aspirin; Z79.899 Other long term (current) drug therapy; Z88.8 Allergy status to other drugs, medicaments and biological substances
CPT/HCPCS: 43239; 88305; 88342; J2405

== ENCOUNTER → 2023-01-24 08:22 | Outpatient (BNV) | payer MEDICARE, SELFPAY | PROVIDERS: PCP Physician Assistant; Visit Provider Surgery | DX: K22.4 Dyskinesia of esophagus (principal); K29.70 Gastritis, unspecified, without bleeding | CPT/HCPCS: 43239 ==

== ENCOUNTER 2023-04-02 09:12 | Outpatient (REF) | payer MEDICARE, OTHER, SELFPAY ==
--- NOTE | ~2023-04-02 | US_ITS ---
EXAMINATION: US COMPLETE ABDOMEN WITH LIVER ELASTOGRAPHY CLINICAL INFORMATION: Unspecified abdominal pain COMPARISON: CT abdomen and pelvis 12/10/2022 TECHNIQUE: Real-time imaging of the abdominal viscera. Noninvasive ultrasound liver fibrosis assessment is performed using Shana ElastPQ point quantification shear wave elastography (2D-SWE) with a C5-2 MHz transducer. Multiple elastography samples are obtained. FINDINGS: PANCREAS: Normal. The visualized pancreatic head and body are normal in appearance. The remainder of the pancreas is obscured from visualization by the overlying bowel gas. ABDOMINAL AORTA: The proximal, middle, and distal aortic segments are normal in caliber. INFERIOR VENA CAVA: Visualized portions are normal. LIVER: The liver demonstrates normal size, contour and echogenicity. No focal lesion or intrahepatic biliary duct dilatation. There is middle portal vein hepatopedal flow on Doppler exam. The right lobe measures 15.4 cm in length. The left lobe measures 10.6 cm in length. Portal flow is hepatopedal Shear wave liver elastography median stiffness is 1.50 m/s (reference: normal median stiffness is 1.3 m/s or less). IQR/median stiffness to assess sampling precision is 0.5 (reference: good quality data set is IQR/median stiffness of 0.15 or less). GALLBLADDER: There is echogenic gravel and echogenic bile. No wall thickening. Gallbladder wall thickness is 0.27 cm. There are 2 ring shaped anechoic structures along the inner gallbladder wall measuring 0.8 x 0.7 x 0.9 cm and a 0.9 0.6 x 0.7 cm. Question nonechogenic stones or cyst within the wall. COMMON BILE DUCT: Normal in caliber measuring 0.56 cm in diameter. RIGHT KIDNEY: No hydronephrosis. No renal calculi or focal parenchymal lesions. The kidney measures 11.2 cm in maximum dimension. There are anechoic cyst. Upper pole cyst measures 1.1 x 0.9 x 1.0). Midpole cyst measures 1.3 x 1.5 x 1.2 cm and 1.5 x 0.9 x 1.0 cm. LEFT KIDNEY: There is anechoic cyst lower/midpole measuring 5.0 x 5.3 x 4.9 cm. No hydronephrosis. No renal calculi or focal parenchymal lesions. The kidney measures 12.3 cm in maximum dimension. SPLEEN: Normal. The spleen measures 10.1 cm in maximum dimension. There is a small splenule measuring 0.8 x 0.6 x 0.7 cm. FREE FLUID: None. OTHER: There is an nonperistaltic atypical appearing bowel lobe in right upper quadrant question stool in the right hepatic flexure versus food bolus in the duodenum. US/US abdomen comp w elastography IMPRESSION: 1. Diffuse echogenic gravel and bile in the gallbladder but no wall thickening. There are 2 hypoechoic round lesions along the gallbladder wall, question nonechogenic stones versus cysts within the wall. 2. Liver elastography: Median liver stiffness measures 1.5 m/s corresponding to cACLD ( ruled out). 3. Atypical appearing area in the right upper quadrant question stool within the hepatic flexure versus food bolus and the duodenum. If patient has pain and palpable lesion this region, a CT of the upper abdomen can be obtained with oral and IV contrast. REFERENCE: Society of Radiologists in Ultrasound Liver Stiffness Thresholds (2020): LIVER STIFFNESS THRESHOLDS: *Liver Stiffness equal or less than 1.3 m/s: High probability of being normal. *Liver Stiffness less than 1.7 m/s: In the absence of other known clinical signs, rules out compensated advanced chronic liver disease. *Liver Stiffness 1.7-2.1 m/s: Suggestive of compensated advanced chronic liver disease but need further test for confirmation. *Liver Stiffness over 2.1 m/s: Rules in compensated advanced chronic liver disease. *Liver Stiffness over 2.4 m/s: Suggestive of clinically significant portal hypertension. QUALITY OF DATA SET: *IQR/Median value equal or less than 0.15 implies a quality data set. *IQR/Median value over 0.15 implies a poor quality data set. SIGNIFICANT CHANGE FROM PRIOR EXAM: Significant change if liver stiffness measurement is 10% or greater from prior exam. OTHER CONSIDERATIONS: The stage of liver fibrosis may be overestimated in the setting of acute hepatitis, liver inflammation, elevated liver function tests, hepatic vascular congestion, obstructive cholestasis, non-fasting state, and infiltrative diseases such as amyloidosis and lymphoma. In some patients with NAFLD, the liver stiffness thresholds for compensated advanced chronic liver disease may be lower. In causes other than viral hepatitis and NAFLD, liver stiffness thresholds are not well established.
== END 2023-04-02 09:13 | disposition home or self-care (01) ==
LOC: HO.US 09:12
PROVIDERS: PCP Physician Assistant; Visit Provider Surgery
DX: R10.9 Unspecified abdominal pain (principal)
CPT/HCPCS: 76705; 76981

== ENCOUNTER → 2023-04-10 09:51 | Outpatient (REF) | payer OTHER, SELFPAY ==
--- NOTE | ~2023-04-10 | NM_ITS ---
EXAMINATION: BILIARY TRACT IMAGING STUDY WITH CCK CLINICAL INFORMATION: Calculus of the bile duct without cholangitis or cholecystitis. COMPARISON: Abdominal ultrasound done on 04/02/[address] of the chest done on 01/18/[address] of the abdomen and pelvis done on 12/10/2022.. TECHNIQUE: Serial gamma scintillation camera images were obtained over the abdomen for a total observation period of 60 minutes following the intravenous administration of 5.0 mCi Tc-99m mebrofenin. FINDINGS: There is good concentration of activity in the liver by 5 minutes post injection. Biliary activity is visualized by 15 minutes. The gallbladder is well visualized by 30 minutes. Small bowel is well visualized by 20 minutes. At 60 minutes post radiopharmaceutical injection, a 30-minute infusion of 1.6 micrograms Sincalide was then begun and an additional 40 minutes of images were obtained. There is poor emptying of the gallbladder. By the end of the study there is good clearance of activity from the liver and visualization of diffuse small bowel activity. The calculated gallbladder ejection fraction is 0% (normal gallbladder ejection fraction is greater than 35%). NM/NM hepatobiliary w pharm IMPRESSION: Visualization of the gallbladder is evidence of a patent cystic duct and strong evidence against the diagnosis of acute cholecystitis. The common bile duct is patent. Gallbladder emptying and ejection fraction are abnormal. Liver function appears normal.
== END ==
LOC: HO.NUCMED 09:51
PROVIDERS: PCP Physician Assistant; Visit Provider Surgery
DX: K80.50 Calculus of bile duct without cholangitis or cholecystitis without obstruction (principal)
CPT/HCPCS: 78227; A9537; J2805

== ENCOUNTER 2023-04-15 13:48 | Outpatient (AMB) | payer OTHER, SELFPAY ==
--- NOTE | 2023-04-15 13:52 | A.OFFVIS_ITS ---
Intake Intake Visit Reasons: (OV) Pre Op Lap Chelsey 04/18/23 Allergies naproxen [From NAPROSYN] Allergy (Intermediate, Verified 01/15/23 08:39) TENSE,ANXIETY duloxetine Adverse Reaction (Mild, Verified 01/15/23 08:39) Headache glycopyrrolate Adverse Reaction (Mild, Verified 01/15/23 08:39) tachycardia ibuprofen [From Advil] Adverse Reaction (Mild, Verified 01/15/23 08:39) Gastrointestinal Upset pravastatin Adverse Reaction (Mild, Verified 01/15/23 08:39) Anxiety PFSH Medical History Achilles tendon tear BPH (benign prostatic hyperplasia) Chronic hiccups DJD (degenerative joint disease) Essential hypertension Family history of colon cancer History of colon polyps History of stroke History of TIAs Migraines Nausea TOMY (obstructive sleep apnea) Preoperative cardiovascular examination Surgical History History of appendectomy History of carpal tunnel surgery of left wrist History of colonoscopy History of esophagogastroduodenoscopy (EGD) History of lumbar surgery History of repair of hiatal hernia History of resection of small bowel Family History Father Diabetes Brother Colon cancer Sister Colon cancer Sister Colon cancer Breast cancer Social History Household Members: Spouse Housing: House Are you a primary cardiac care nurse to a significant other at home: No Do you presently have visiting nurse or other home services: No Alcohol intake: never Patient Tobacco Use Status: Never used Tobacco e-Cigarette/Vaping Use: Never Used Second Hand Smoke Exposure: No Advance Directives Date on File: 10/15/22 service: Yes Current occupational status: retired Coding
--- NOTE | 2023-04-15 13:54 | A.OFFVIS_ITS ---
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 Computer Support Analyst: Computer Support Analyst offered & declined Allergies naproxen [From NAPROSYN] Allergy (Intermediate, Verified 04/15/23 13:58) TENSE,ANXIETY duloxetine Adverse Reaction (Mild, Verified 04/15/23 13:58) Headache glycopyrrolate Adverse Reaction (Mild, Verified 04/15/23 13:58) tachycardia ibuprofen [From Advil] Adverse Reaction (Mild, Verified 04/15/23 13:58) Gastrointestinal Upset pravastatin Adverse Reaction (Mild, Verified 04/15/23 13:58) Anxiety HPI HPI Comments History of Present Illness Details The patient is a 78-year-old gentleman who underwent laparoscopic hiatal hernia repair 10/11/22 & ongoing issues with pain, nausea and vomiting. The patient underwent a repeat upper GI that showed a small hiatal hernia, upper endoscopy and, on 04/10/2023 a HIDA with CCK that showed no ejection of the gallbladder after CCK was administered. The patient had been experiencing 2 years of hiccups and following his hiatal hernia repair, he reports that he has been having persistent nausea and some right upper quadrant pain. This is often accompanied by 20-30 hours of whitish mucus being regurgitated. Patient denies any fevers, chills or unexplained weight loss. He reports prior surgery including an appendectomy and colon surgery for diverticulitis. Patient also expressed concerns about profuse sweating when he is going to sleep on his left side, and this sweating does not occur if he lays on his right. He was concerned that there may be a relationship of the symptoms. [facility]LY [facility] Medical History DJD (degenerative joint disease) Nausea Preoperative cardiovascular examination BPH (benign prostatic hyperplasia) TOMY (obstructive sleep apnea) Chronic hiccups History of colon polyps Family history of colon cancer Essential hypertension History of TIAs History of stroke Migraines Achilles tendon tear Surgical History History of repair of hiatal hernia History of lumbar surgery History of carpal tunnel surgery of left wrist History of colonoscopy History of esophagogastroduodenoscopy (EGD) History of resection of small bowel History of appendectomy Family History Father Diabetes Brother Colon cancer Sister Colon cancer Sister Colon cancer Breast cancer Social History Household Members: Spouse Housing: House Are you a primary healthcare educator to a significant other at home: No Do you presently have visiting nurse or other home services: No Alcohol intake: never Patient Tobacco Use Status: Never used Tobacco e-Cigarette/Vaping Use: Never Used Second Hand Smoke Exposure: No Advance Directives Date on File: 10/15/22 service: Yes Current occupational status: retired Review of Systems Const All systems reviewed & are unremarkable except as noted in HPI and below Physical Exam On exam he is afebrile and nontoxic Sclera are anicteric He is in no respiratory distress Abdomen is soft with no tenderness and no hernias appreciated Right upper quadrant discomfort is present on today's exam but no rebound, rigidity or guarding Results Reviewed Results Reviewed: Diagnostic imaging 04/10/23 HIDA with CCK: Ejection fraction 0 I reviewed the patient's abdominal CT dated July 24, 2022 including the images and report. 04/02/2023 abdominal ultrasound/elastography shows cholelithiasis and a CBD 5.6 mm Labs from 01/15/2023 Hemoglobin 12.3 with normochromic/normocytic indices, platelet count 205 K, white blood cell count 6.4 BUN 10, creatinine 1.13 Electrolytes are within normal parameters, LFTs and lipase are normal Assessment & Plan Assessment & Plan (1) Biliary colic: Code(s): K80.50 - Calculus of bile duct without cholangitis or cholecystitis without obstruction (2) Status post repair of paraesophageal diaphragmatic hernia: Code(s): Z98.890 - Other specified postprocedural states; Z87.19 - Personal history of other diseases of the digestive system (3) Atherosclerotic cardiovascular disease: Code(s): I25.10 - Atherosclerotic heart disease of [place] coronary artery without angina pectoris (4) Esophageal dysmotility: Code(s): K22.4 - Dyskinesia of esophagus (5) Esophageal diverticulum: Code(s): 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 The option of a 2nd opinion from Dr. Hardy was also offered to the patient. Given his known gallstones and nonfunctioning gallbladder, I recommended laparoscopic cholecystectomy, possibly open and possible cholangiogram. I reviewed the option of continued observation and 2nd opinion which was declined. I also reviewed the inherent risks to surgery which include, but are not limited to: Bleeding that could require another operation or blood transfusion, the need for open surgery, the unlikely but possible issue of bile leak that could require an ERCP, the risk of retained common duct stones that could require an ERCP, the risk of common bile duct injury which would require transfer to a larger institution for another operation. Patient seemed to understand his options, declined a home mission worker or 2nd opinion and wants to proceed. The patient had been instructed to stop his Plavix and has been off of it as recommended for over a week as of today's visit. He is continuing on aspirin which is encouraged and recommended. We also discussed his rather unusual symptoms that included hiccups, nausea and mucus production and that the symptoms may persist and require re-evaluation by Gastroenterology. Instructions regarding diet and activity reviewed and apparently understood. The patient is advised to avoid rich fatty foods postoperatively to avoid GI distress/diarrhea and advised to not lift more than 20 lb for medical reasons to minimize the risk of hernia postoperatively. I recommended that she discuss these restrictions with her employer and that she is not disabled during this time frame but can perform light duty. The patient's questions seemed to be satisfactorily answered. 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 He will receive Ancef, 2 g IV on-call. Patient notes that he tolerated oxycodone previously and we discussed using it, bowel regime postoperatively. Coding Level of Care Code Est Pt Level 4 (14425) Diagnoses Biliary colic K80.50 Status post repair of paraesophageal diaphragmatic hernia Z98.890; Z87.19 Atherosclerotic cardiovascular disease I25.10 Esophageal dysmotility K22.4 Esophageal diverticulum Q39.6 Diaphragmatic hernia K44.9 Hiatal hernia K44.9 TOMY (obstructive sleep apnea) G47.33 Essential hypertension I10
[2023-04-15 13:56] VITALS: BMI 23.6
== END 2023-04-15 14:25 | disposition home or self-care (01) ==
PROVIDERS: PCP Physician Assistant; Referring Provider Physician Assistant; Visit Provider Surgery
DX: K80.50 Calculus of bile duct without cholangitis or cholecystitis without obstruction (principal); Z98.890 Other specified postprocedural states; Z87.19 Personal history of other diseases of the digestive system; I25.10 Atherosclerotic heart disease of native coronary artery without angina pectoris; K22.4 Dyskinesia of esophagus; Q39.6 Congenital diverticulum of esophagus; K44.9 Diaphragmatic hernia without obstruction or gangrene; G47.33 Obstructive sleep apnea (adult) (pediatric); I10 Essential (primary) hypertension
CPT/HCPCS: 99214

== ENCOUNTER → 2023-04-15 13:48 | Outpatient (BNVA) | payer OTHER, SELFPAY | PROVIDERS: PCP Physician Assistant; Visit Provider Surgery | DX: K80.50 Calculus of bile duct without cholangitis or cholecystitis without obstruction (principal); K22.4 Dyskinesia of esophagus; K44.9 Diaphragmatic hernia without obstruction or gangrene; Q39.6 Congenital diverticulum of esophagus; G47.33 Obstructive sleep apnea (adult) (pediatric); I10 Essential (primary) hypertension; I25.10 Atherosclerotic heart disease of native coronary artery without angina pectoris; Z98.890 Other specified postprocedural states; Z87.19 Personal history of other diseases of the digestive system | CPT/HCPCS: 99212 ==

== ENCOUNTER 2023-04-18 07:56 | Day surgery (SDC) | payer OTHER, SELFPAY ==
[2023-04-16 10:30] VITALS: BMI 23.6
--- NOTE | 2023-04-17 09:34 | P.CONAN_ITS ---
Documented by User: Maye Rodríguez NP 04/17/23 09:40 HPI - Anesthesia Eval Consult details Narrative: 78yo M for Cholecystectomy Laparoscopic s/p Upper Endoscopy 01/2023 with MAC s/p lap diaphragm hernia repair 10/2022 with GETA Cardiac optimized prior to hernia repair. TIA - plavix on hold TOMY - dental appliance PMFSH Active Problems Active Problems: All Active Problems (Updated 04/16/23 @ 10:30 by Genet Camejo, RN) Biliary colic (Acute) Abdominal pain (Acute) Status post repair of paraesophageal diaphragmatic hernia (Acute) Atherosclerotic cardiovascular disease (Acute) Obstruction concurrent with and due to paraesophageal hernia (Acute) Esophageal diverticulum (Acute) Esophageal dysmotility (Acute) Diaphragmatic hernia (Acute) Hiatal hernia (Acute) Eosinophil count raised (Acute) Normocytic anemia (Acute) Elevated fasting blood sugar (Acute) Diverticulosis of colon (Acute) Cervicalgia (Acute) History of diverticulitis (Acute) GERD (gastroesophageal reflux disease) (Acute) DJD (degenerative joint disease) (Acute) Chronic hiccups (Acute) History of colon polyps (Acute) History of TIAs (Acute) History of stroke (Acute) TOMY (obstructive sleep apnea) (Acute) Essential hypertension (Acute) Migraines (Acute) BPH (benign prostatic hyperplasia) (Acute) Past Medical History Medical History (Updated 04/18/23 @ 09:05 by Paulina Newman) DJD (degenerative joint disease) Nausea Preoperative cardiovascular examination BPH (benign prostatic hyperplasia) TOMY (obstructive sleep apnea) Chronic hiccups History of colon polyps Family history of colon cancer Essential hypertension History of TIAs History of stroke Migraines Achilles tendon tear Family History Family History Father Diabetes Brother Colon cancer Sister Colon cancer Sister Colon cancer Breast cancer Family history of problems with anesthesia: No Surgical History Surgical History (Updated 04/16/23 @ 10:00 by Genet Camejo, ANABEL) History of repair of hiatal hernia History of lumbar surgery History of carpal tunnel surgery of left wrist History of colonoscopy History of esophagogastroduodenoscopy (EGD) History of resection of small bowel History of appendectomy History of Problems with Anesthesia: No Social History Social History Household Members: Spouse Housing: House Are you a primary critical care educator to a significant other at home: No Do you presently have visiting nurse or other home services: No Alcohol intake: never Patient Tobacco Use Status: Never used Tobacco e-Cigarette/Vaping Use: Never Used Second Hand Smoke Exposure: No Use of substances other than those prescribed or required for medical reasons: No Have you been hit, kicked, punched, or otherwise hurt by someone within the past year? If so, by whom?: No Are you DNR?: No Advance Directives: Yes Advance Directives Information Provided: Yes Advance Directives on File: Yes Advance Directives Date on File: 10/15/22 Recently lost weight without trying: No Eating poorly because of decreased appetite: No Nutrition Risks: No Nutritional Risk Poor oral hygiene: No (lower partial/upper implant) service: Yes Current occupational status: retired Meds Allergies Allergy/AdvReac Type Severity Reaction Status Date / Time naproxen [From NAPROSYN] Allergy Intermediate TENSE,ANXIE Verified 04/18/23 08:19 TY duloxetine AdvReac Mild Headache Verified 04/18/23 08:19 glycopyrrolate AdvReac Mild tachycardia Verified 04/18/23 08:19 ibuprofen [From Advil] AdvReac Mild Gastrointestinal Verified 04/18/23 08:19 Upset pravastatin AdvReac Mild Anxiety Verified 04/18/23 08:19 Home Medications Medication Instructions Recorded Confirmed Last Taken Type sumatriptan succinate 50 mg tablet 50 mg PO Q2-4H PRN Headache 11/04/20 04/18/23 Unknown History tamsulosin 0.4 mg capsule 0.4 mg PO BEDTIME 11/04/20 04/18/23 Unknown History amlodipine 2.5 mg tablet 2.5 mg PO DAILY PRN Hypertension 04/16/23 04/18/23 Unknown History clopidogrel 75 mg tablet (Plavix) 75 mg PO DAILY 04/16/23 04/18/23 04/08/23 History Exam Height,Weight and Vital Signs: Height 6 ft 1 in Weight 81.193 kg Pertinent Lab Results Pertinent Lab Results: Laboratory Tests 01/15/23 08:48 WBC 6.4 Hgb 12.3 L Hct 38.0 L Plt Count 205 Sodium 142 Potassium 3.8 Chloride 107 Carbon Dioxide 29 BUN 10 Creatinine 1.13 Narrative Narrative: EKG 01/2023 Interpretation by ED MD: Rate: 62 Rhythm: NSR [place]: left Normal P waves. Normal MAIA. Normal QRS complex. ST T wave : no NATHANIEL, inverted T waves III and aVF qTC: normal prior studies: no acute ischemia ECHO 09/2022 Conclusions: - The left ventricular systolic function is normal. The calculated ejection fraction is 57% by biplane method. - No obvious valvular pathology seen on this study. 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 Assessment and Plan Assessment Anesthesia Assessment: Chart Reviewed Final Anesthetic Review Family History of Problems with Anesthesia: No History of Problems with Anesthesia: No Documented by User: Donovan Bateman MD 04/18/23 09:21 [facility] Past Medical History Medical History (Updated 04/18/23 @ 09:05 by Paulina Newman) DJD (degenerative joint disease) Nausea Preoperative cardiovascular examination BPH (benign prostatic hyperplasia) TOMY (obstructive sleep apnea) Chronic hiccups History of colon polyps Family history of colon cancer Essential hypertension History of TIAs History of stroke Migraines Achilles tendon tear Family History Family History Father Diabetes Brother Colon cancer Sister Colon cancer Sister Colon cancer Breast cancer Surgical History Surgical History (Updated 04/16/23 @ 10:00 by Genet Camejo RN) History of repair of hiatal hernia History of lumbar surgery History of carpal tunnel surgery of left wrist History of colonoscopy History of esophagogastroduodenoscopy (EGD) History of resection of small bowel History of appendectomy Social History Social History Household Members: Spouse Housing: House Are you a primary critical care educator to a significant other at home: No Do you presently have visiting nurse or other home services: No Alcohol intake: never Patient Tobacco Use Status: Never used Tobacco e-Cigarette/Vaping Use: Never Used Second Hand Smoke Exposure: No Use of substances other than those prescribed or required for medical reasons: No Have you been hit, kicked, punched, or otherwise hurt by someone within the past year? If so, by whom?: No Are you DNR?: No Advance Directives: Yes Advance Directives Information Provided: Yes Advance Directives on File: Yes Advance Directives Date on File: 10/15/22 Recently lost weight without trying: No Eating poorly because of decreased appetite: No Nutrition Risks: No Nutritional Risk Poor oral hygiene: No (lower partial/upper implant) service: Yes Current occupational status: retired Meds Allergies Allergy/AdvReac Type Severity Reaction Status Date / Time naproxen [From NAPROSYN] Allergy Intermediate TENSE,ANXIE Verified 04/18/23 08:19 TY duloxetine AdvReac Mild Headache Verified 04/18/23 08:19 glycopyrrolate AdvReac Mild tachycardia Verified 04/18/23 08:19 ibuprofen [From Advil] AdvReac Mild Gastrointestinal Verified 04/18/23 08:19 Upset pravastatin AdvReac Mild Anxiety Verified 04/18/23 08:19 Home Medications Medication Instructions Recorded Confirmed Last Taken Type sumatriptan succinate 50 mg tablet 50 mg PO Q2-4H PRN Headache 11/04/20 04/18/23 Unknown History tamsulosin 0.4 mg capsule 0.4 mg PO BEDTIME 11/04/20 04/18/23 Unknown History amlodipine 2.5 mg tablet 2.5 mg PO DAILY PRN Hypertension 04/16/23 04/18/23 Unknown History clopidogrel 75 mg tablet (Plavix) 75 mg PO DAILY 04/16/23 04/18/23 04/08/23 History Exam Airway Mallampati Class: I TM Dist: >3cm Neck ROM: Full Loose/Missing/Broken Teeth: No Heart: CAD. No angina. Lungs: ok Assessment and Plan Assessment Anesthesia Assessment: Anesthesia Plan Discussed Final Anesthetic Review NPO: Yes ASA Class: III Final Preanesthetic Review: No Changes in Pt Med Stat, Meds/Allgs Chart Reviewed, Consent Obtained/Reviewed and Anes Risks/Benef Reviewed Patient Risk: High Procedure Risk: Intermediate Anesthetic Plan Anesthetic Plan: GA and Agree w/ Assess. and Plan Disposition: Standard PACU
--- NOTE | 2023-04-17 12:25 | MHC.SHP ---
Pre-Procedural Eval Section A Date of Service: 04/17/23 The patient is an INPATIENT: No The History & Physical has been completed within 30 days and I have reviewed it.: Yes Section B Chief Complaint: Calculus of bile duct without cholangitis or daisha Allergies: Allergies Allergy/AdvReac Type Severity Reaction Status Date / Time naproxen [From NAPROSYN] Allergy Intermediate TENSE,ANXIE Verified 04/15/23 13:58 TY duloxetine AdvReac Mild Headache Verified 04/15/23 13:58 glycopyrrolate AdvReac Mild tachycardia Verified 04/15/23 13:58 ibuprofen [From Advil] AdvReac Mild Gastrointestinal Verified 04/15/23 13:58 Upset pravastatin AdvReac Mild Anxiety Verified 04/15/23 13:58 Plan I have reviewed the history and physical and performed a pertinent physical examination on my patient. No changes have occurred unless specified. Time Spent With Patient Time: Total time managing care of this patient today ____ minutes.
[2023-04-18 08:20] VITALS: BP 149/83; PULSE 54; RESP 16; TEMP 36.6; O2SAT 100; BMI 23.5
--- NOTE | 2023-04-18 08:58 | P.OP_ITS ---
Operative Note Operative Note Date of Service: 04/18/23 Narrative: Preop diagnosis: [Cholelithiasis, abnormal HIDA with EF of zero; oropharyngeal mucous] Postop diagnosis: [same, intraabd adhesions] Procedure: [Laparoscopic cholecystectomy, lysis of adhesions for 17 minute] Surgeon: Dc Marin MD, [facility], [facility] Assist: [Maritza Dc PA-C] Anesthesia: [GET, local: Marcaine, 0.25% with epi] Estimated blood loss: [10cc] Specimen: [Gallbladder with contents] Intraoperative findings: [Adhesions of the omentum to the patient's midline abdominal incision from prior bowel surgery were noted in required lysis prior to trocar placement. Critical view of safety demonstrating at 3 mm cystic artery and 4 mm cystic duct was demonstrated.] Indications: [The patient is a 78-year-old gentleman who had several years of hiccups and was noted to have a hiatal hernia. He underwent hiatal hernia repair and had a change in his symptoms to significant oropharyngeal mucous production and right upper quadrant pain. He was evaluated on 04/10/2023 a HIDA with CCK that showed no ejection of the gallbladder after CCK was administered. Options including a 2nd opinion were reviewed but I recommended proceeding with cholecystectomy. The possibility of his symptoms persisting and needing further evaluation by Gastroenterology workup was discussed and apparently understood. I also reviewed the inherent risks to surgery which include, but are not limited to: Bleeding that could require another operation or blood transfusion, the need for open surgery, the unlikely but possible issue of bile leak that could require an ERCP, the risk of retained common duct stones that could require an ERCP, the risk of common bile duct injury which would require transfer to a larger institution for another operation. Patient seemed to understand her options, declined a hedis coordinator or 2nd opinion and wants to proceed.] Procedure: [The patient was identified in preoperative holding and again in the operating room and placed supine on the table. An appropriate time-out was performed and preemptive local used at all trocar insertion sites. I began at the patient's left upper quadrant due to prior midline abdominal incision from bowel resection and placed a Veress needle through a stab incision without incident. An appropriate drop test was performed. The needle was connected to high flow and opening pressures were 5 mmHg. A pneumoperitoneum of 15 mmHg was then obtained using carbon dioxide. Using preemptive local, I began in the right anterior axillary line at the level of the umbilicus and raised a skin wheal, made a 5 mm incision in and using a 5 mm Optiview trocar over 30 degree laparoscopic, accessed the abdomen without incident. The Veress needle was identified in the left upper quadrant and there was no evidence of injury to the bowel or deeper structures so it was removed, and a 5 mm infraumbilical incision made after preemptive analgesia was infiltrated and a 5 mm trocar placed for lysis of adhesions which took 17 minutes using a LigaSure. Next a a 5 mm epigastric and 5 mm right subcostal ports were placed with preemptive analgesia under direct laparoscopic vision without incident and the supraumbilical trocar upsized to a 12 mm trocar under direct laparoscopic vision. The gallbladder was clearly identified and grasped by its fundus. It was retracted cranially and anteriorly and dissection began in the lateral cystic triangle. The cystic duct was identified at its junction on the gallbladder and dissection carried medially, then circumferentially using the [place] dissector and hook. The cystic artery was then carefully identified and circumferentially dissected. Once dissection of both structures was complete and the critical view of safety demonstrated, the duct and artery were double clipped proximally and once distally and sharply divided. Electrocautery was used to remove the gallbladder from its fossa on the liver. Liver bed was inspected for hemostasis and the clips were noted to be on the respective structures. The gallbladder was placed in an Endo-Catch bag and delivered through the umbilicus under direct laparoscopic vision. The abdomen was again inspected with the laparoscoped and a abdomen deflated to assess for hemostasis. The patient was returned to neutral position, the abdomen deflated and the fascia of the supraumbilical incision closed with interrupted Vicryl sutures. Skin was closed with 4-0 Monocryl subcuticular sutures. Mastisol and Steri-Strips were applied followed by Band-Aids. The patient tolerated the procedure well and was extubated recovered in stable condition. All sponge instrument counts were correct. At the patient's request I spoke with his , Ana who declined interpretive services regarding the operation and post-op plan, activity restrictions, pain management & bowel regime. Possible need to be re-evaluated by Gastroenterology if the symptoms persist was discussed as well as the plan to resume his Plavix on Saturday morning. Her questions seemed to be satisfactorily answered.]
[2023-04-18] MEDS: Lactated Ringers 1,000 ML 100 ML IVCONT (09:05)
[2023-04-18 10:43] VITALS: BP 184/99; PULSE 78; RESP 16; TEMP 36.2; O2SAT 97
[2023-04-18 10:48] VITALS: BP 162/93; PULSE 68; RESP 16; O2SAT 97
[2023-04-18] MEDS: oxyCODONE HCl Immed Release 5 MG TABLET 10 MG PO (10:48)
[2023-04-18] MEDS: Acetaminophen 325 MG TABLET 650 MG PO (10:48)
[2023-04-18 10:53] VITALS: BP 154/98; PULSE 59; RESP 15; O2SAT 100
[2023-04-18 10:58] VITALS: BP 157/81; PULSE 55; RESP 15; O2SAT 100
[2023-04-18 11:13] VITALS: BP 162/75; PULSE 66; RESP 15; TEMP 36.2; O2SAT 98
--- NOTE | 2023-04-18 13:18 | PC.NURSE ---
author spoke with patient at home and [facility] and he was able to pick them up. Dr. Marin is aware.
== END 2023-04-18 12:15 | disposition home or self-care (01) ==
LOC: HO.SSS 07:58
PROVIDERS: PCP Physician Assistant; Visit Provider Surgery
PROC: 0FT44ZZ Resection of Gallbladder, Percutaneous Endoscopic Approach (ICD-10-PCS; CPT 47562; principal; 2023-04-18 09:40)
DX: K80.12 Calculus of gallbladder with acute and chronic cholecystitis without obstruction (principal); K82.8 Other specified diseases of gallbladder; R09.3 Abnormal sputum; R06.6 Hiccough; K44.9 Diaphragmatic hernia without obstruction or gangrene; I25.10 Atherosclerotic heart disease of native coronary artery without angina pectoris; I10 Essential (primary) hypertension; K22.4 Dyskinesia of esophagus; Q39.6 Congenital diverticulum of esophagus; G47.33 Obstructive sleep apnea (adult) (pediatric); Z79.01 Long term (current) use of anticoagulants; Z79.899 Other long term (current) drug therapy; Z88.8 Allergy status to other drugs, medicaments and biological substances; Z98.890 Other specified postprocedural states; Z90.49 Acquired absence of other specified parts of digestive tract; Z80.0 Family history of malignant neoplasm of digestive organs; Z86.73 Personal history of transient ischemic attack (TIA), and cerebral infarction without residual deficits; Z87.19 Personal history of other diseases of the digestive system
CPT/HCPCS: 47562; 88304; J0690; J1100; J2405; J2704; J3010

== ENCOUNTER → 2023-04-18 07:56 | Outpatient (BNV) | payer OTHER, SELFPAY | PROVIDERS: PCP Physician Assistant; Visit Provider Surgery | DX: K80.50 Calculus of bile duct without cholangitis or cholecystitis without obstruction (principal) | CPT/HCPCS: 47562 ==

== ENCOUNTER 2023-04-22 13:34 | Outpatient (AMB) | payer OTHER, MEDICARE, SELFPAY ==
[2023-04-22 13:47] VITALS: BP 109/67; PULSE 70; BMI 22.8
--- NOTE | 2023-04-22 13:47 | A.OFFVIS_ITS ---
Intake Vital Signs 04/22/23 13:47 Height 6 ft 1 in Weight 173 lb BMI 22.8 BP 109/67 Blood Pressure Location Lt brachial Position Sitting Pulse 70 Intake Visit Reasons: 5 mnth follow up Intake Note: Benjamín presents in the office as a 5 month follow up. CC: states that he is feeling okay since getting his gall bladder. He would like to get a colonoscopy - he is due in 2023. Boat Outboard Engine Mechanic Required: No Allergies naproxen [From NAPROSYN] Allergy (Intermediate, Verified 04/22/23 13:48) TENSE,ANXIETY duloxetine Adverse Reaction (Mild, Verified 04/22/23 13:48) Headache glycopyrrolate Adverse Reaction (Mild, Verified 04/22/23 13:48) tachycardia ibuprofen [From Advil] Adverse Reaction (Mild, Verified 04/22/23 13:48) Gastrointestinal Upset pravastatin Adverse Reaction (Mild, Verified 04/22/23 13:48) Anxiety HPI 5 mnth follow up HPI Details 78 yr old me here for f/u RECAP He had EGD 01/2022 with fundic gland polyps, gastritis and hiatal hernia Manometry with IEM, LOW DCI, fragmented motility, normal IRP He was commenced on baclofen and is on PPI He had paraesophgeal hernia repair--CT had revealed a esophageal diverticulum but not seen at time of hernia repair He recently had cholecystectomy for severe GB dyspkinesia INTERIM He feels v good minimal hiccups still taking baclofen he has noted sweats only when lying on the left side he has to change his pyjamas, can be soaked he did have CT A/P and chest within last few months, and nothing to suggest lymphoma, etc no reflux still taking carafate and PPI BID, EXAM: GENERAL: The patient is well developed and nontoxic. VITAL SIGNS:see workflow HEENT: Nonicteric sclerae, PERRLA, EOMI. Oropharynx clear. Moist mucous membranes. Conjunctivae appear well perfused. No thyroid mass. CHEST: Chest wall is nontender. HEART: Regular rate and rhythm without murmurs. LUNGS: Clear to auscultation bilaterally. ABDOMEN: Soft, positive bowel sounds, nontender, no organomegaly.no flank tenderness SKIN: No rash, no excessive bruising, petechiae, or purpura. NEUROLOGIC: Cranial nerves II-XII intact without motor/sensory deficit. ? A/P: 1/ Hiccups possibly from hiatal hernia a nd reflux, now improved after surgery 2/ Nausea and night sweats , recent CT s cans were neg for lymphoma, seeing PCP for f/u PLAN: 1/ he has stopped PPI, if worsening naus ea, can go back on PPI 2/ if ongoing sweats can consider repeat CT imaging,? PFSH Medical History DJD (degenerative joint disease) Nausea Preoperative cardiovascular examination BPH (benign prostatic hyperplasia) TOMY (obstructive sleep apnea) Chronic hiccups History of colon polyps Family history of colon cancer Essential hypertension History of TIAs History of stroke Migraines Achilles tendon tear Surgical History Hx of cholecystectomy History of repair of hiatal hernia History of lumbar surgery History of carpal tunnel surgery of left wrist History of colonoscopy History of esophagogastroduodenoscopy (EGD) History of resection of small bowel History of appendectomy Family History Father Diabetes Brother Colon cancer Sister Colon cancer Sister Colon cancer Breast cancer Social History Household Members: Spouse Housing: House Are you a primary technical healthcare consultant to a significant other at home: No Do you presently have visiting nurse or other home services: No Alcohol intake: never Patient Tobacco Use Status: Never used Tobacco e-Cigarette/Vaping Use: Never Used Second Hand Smoke Exposure: No Advance Directives Date on File: 10/15/22 service: Yes Current occupational status: retired Physical Exam Vital Signs: Last Vital Signs Pulse 70 04/22/23 13:47 BP 109/67 04/22/23 13:47 BMI result Body Mass Index 22.8 Assessment & Plan Assessment & Plan (1) Abdominal pain: Code(s): R10.9 - Unspecified abdominal pain Plan: see above (2) Biliary colic: Code(s): K80.50 - Calculus of bile duct without cholangitis or cholecystitis without obstruction Plan: see above Medications: Discontinued metoclopramide HCl (Reglan) Discontinued Reason: Patient Completed Course 5 mg PO Q8H PRN 30 tabs 3RF nausea and vomiting 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
== END 2023-04-22 14:58 | disposition home or self-care (01) ==
PROVIDERS: PCP Physician Assistant; Referring Provider Physician Assistant; Visit Provider Internal Medicine Gastroenterology
DX: R10.9 Unspecified abdominal pain (principal); K80.50 Calculus of bile duct without cholangitis or cholecystitis without obstruction
CPT/HCPCS: 99213

== ENCOUNTER → 2023-04-22 13:34 | Outpatient (BNVA) | payer OTHER, MEDICARE, SELFPAY | PROVIDERS: PCP Physician Assistant; Visit Provider Internal Medicine Gastroenterology | DX: K80.50 Calculus of bile duct without cholangitis or cholecystitis without obstruction (principal); R10.9 Unspecified abdominal pain | CPT/HCPCS: 99212 ==

== ENCOUNTER 2023-04-24 09:41 | Outpatient (AMB) | payer OTHER, SELFPAY ==
--- NOTE | 2023-04-24 09:45 | A.OFFVIS_ITS ---
Intake Vital Signs 04/24/23 09:48 Height 6 ft 1 in Weight 170 lb 3.15 oz BMI 22.5 BP 127/71 Blood Pressure Location Rt brachial Position Sitting Pulse 80 Pulse Source Pulse Oximeter Temp 96.3 F L Temp Source Tympanic Pulse Oximetry (%) 95 Oxygen Delivery Method Room Air Intake Visit Reasons: (OV) s/p Lap Chelsey 04/18/23 Allergies naproxen [From NAPROSYN] Allergy (Intermediate, Verified 04/22/23 13:48) TENSE,ANXIETY duloxetine Adverse Reaction (Mild, Verified 04/22/23 13:48) Headache glycopyrrolate Adverse Reaction (Mild, Verified 04/22/23 13:48) tachycardia ibuprofen [From Advil] Adverse Reaction (Mild, Verified 04/22/23 13:48) Gastrointestinal Upset pravastatin Adverse Reaction (Mild, Verified 04/22/23 13:48) Anxiety HPI HPI Comments History of Present Illness Details The patient presents to the office for routine follow-up after an uneventful laparoscopic cholecystectomy 04/18/23 for upper GI symptoms including right upper quadrant pain and nonfunctioning gallbladder on CCK HIDA. Since surgery, the patient reports he has had another episode on Saturday of severe mucus production but his right upper quadrant abdominal pain has resolved. He is not taking any narcotics or bfmm-edz-phttoex medications for pain stating he has no pain. His biggest concern is what to do if the mucus production returns and becomes problematic. The patient notes he saw Dr. Ortiz in Gastroenterology this past Saturday and has a follow-up in 3 months. [facility] Medical History DJD (degenerative joint disease) Nausea Preoperative cardiovascular examination BPH (benign prostatic hyperplasia) TOMY (obstructive sleep apnea) Chronic hiccups History of colon polyps Family history of colon cancer Essential hypertension History of TIAs History of stroke Migraines Achilles tendon tear Surgical History (Updated 04/24/23 @ 09:50 by Nirmala Carreno CMA) Hx of cholecystectomy History of repair of hiatal hernia History of lumbar surgery History of carpal tunnel surgery of left wrist History of colonoscopy History of esophagogastroduodenoscopy (EGD) History of resection of small bowel History of appendectomy Family History Father Diabetes Brother Colon cancer Sister Colon cancer Sister Colon cancer Breast cancer Social History Household Members: Spouse Housing: House Are you a primary lawn care technician to a significant other at home: No Do you presently have visiting nurse or other home services: No Alcohol intake: never Patient Tobacco Use Status: Never used Tobacco e-Cigarette/Vaping Use: Never Used Second Hand Smoke Exposure: No Advance Directives Date on File: 10/15/22 service: Yes Current occupational status: retired Review of Systems Const All systems reviewed & are unremarkable except as noted in HPI and below Physical Exam On exam, the patient is nontoxic and is comfortable new he is anicteric He is having no respiratory difficulty His abdomen is soft with no tenderness. Steri-Strips are in place and his incisions are healing well with no evidence of infection or hernia Results Reviewed Results Reviewed: Pathology from 04/18/2023 was discussed with the patient which confirmed acute and chronic calculous cholecystitis. No evidence of malignancy or neoplasia/atypia was noted in the specimen Assessment & Plan Assessment & Plan (1) Biliary colic: Code(s): K80.50 - Calculus of bile duct without cholangitis or cholecystitis without obstruction (2) Status post repair of paraesophageal diaphragmatic hernia: Code(s): Z98.890 - Other specified postprocedural states; Z87.19 - Personal history of other diseases of the digestive system Plan Instructions regarding diet and activity were reviewed. Patient will refrain from lifting more than 20 lb for the next month to mitigate risk of incisional hernia. Patient is advised to continue to follow his mucus production symptoms and encouraged to follow-up with Dr. Ortiz. If he is clinically worsening, he should notify either Dr. Hardy in my absence or Dr. Ortiz. Patient confirm that some of his symptoms have improved, specifically the right upper quadrant symptoms, but he did note some concern about the mucus production/episode from Saturday. Importance of follow-up was reviewed and apparently understood. Coding Level of Care Code Global (15466) Diagnoses Biliary colic K80.50 Status post repair of paraesophageal diaphragmatic hernia Z98.890; Z87.19
[2023-04-24 09:48] VITALS: BP 127/71; PULSE 80; TEMP 35.7; O2SAT 95; BMI 22.5
== END 2023-04-24 09:56 | disposition home or self-care (01) ==
PROVIDERS: PCP Physician Assistant; Visit Provider Surgery
DX: K80.50 Calculus of bile duct without cholangitis or cholecystitis without obstruction (principal); Z98.890 Other specified postprocedural states; Z87.19 Personal history of other diseases of the digestive system
CPT/HCPCS: 99024

== ENCOUNTER → 2023-04-24 09:41 | Outpatient (BNVA) | payer OTHER, SELFPAY | PROVIDERS: PCP Physician Assistant; Visit Provider Surgery | DX: K80.50 Calculus of bile duct without cholangitis or cholecystitis without obstruction (principal); Z98.890 Other specified postprocedural states; Z87.19 Personal history of other diseases of the digestive system | CPT/HCPCS: 99212 ==

== ENCOUNTER 2023-05-02 07:35 | Emergency (ER) | payer MEDICARE, OTHER, SELFPAY ==
[2023-05-02 07:44] VITALS: BP 154/92; PULSE 54; RESP 18; TEMP 36.3; O2SAT 97; BMI 23.3
--- NOTE | 2023-05-02 07:50 | ED.GENADULT ---
HPI - General Adult General Chief complaint: General Medical Stated complaint: Referred by dr Wahl hyper salivation Time Seen by Provider: 05/02/23 07:50 History of Present Illness HPI narrative: 78-year-old male history of hypertension, coronary artery disease, obstructive sleep apnea, TIA, GERD,intractable hiccups improved after hiatal hernia repair (01/24/2023) complains producing too much saliva. He states he has had this symptom in the past and was felt to be secondary to his GERD. He states that since 04/30/2023 (2 days prior to evaluation), he has been producing excessive saliva. He states that the saliva is clear yellow and has to spit it out repeatedly. He states that he spits out several cups of saliva every hour. Patient states that he has had similar symptoms in the past and was felt to be secondary to his GERD. He had a cholecystectomy 04/18/2023 for dysfunctional gallbladder he states that this did not stop his hypersalivation. The contacted his surgeon Dr. Hardy and international trade specialist Dr. Ortiz's offices' and was advised to go to the emergency department yesterday however his symptoms resolved and he decided come to emergency department today for evaluation. He states that he saw specialist at the [facility] who advised him to get a scan which she believes is an MRI of the brain to further evaluate his symptoms. He states that Dr. Hardy is aware of this recommendation. Patient states that he has been having some GERD like symptoms but he ran out of his pantoprazole but restarted it yesterday. States he had 1 episode of vomiting yesterday. Related Data Home Medications Medication Instructions Recorded Confirmed sumatriptan succinate 50 mg tablet 50 mg PO Q2-4H PRN Headache 11/04/20 04/18/23 tamsulosin 0.4 mg capsule 0.4 mg PO BEDTIME 11/04/20 04/18/23 amlodipine 2.5 mg tablet 2.5 mg PO DAILY PRN Hypertension 04/16/23 04/18/23 clopidogrel 75 mg tablet (Plavix) 75 mg PO DAILY 04/16/23 04/18/23 Previous Rx's Medication Instructions Recorded sucralfate 100 mg/mL oral 10 ml PO BID #414 mL 01/10/23 suspension ondansetron 4 mg disintegrating 4 mg PO Q6H nausea and vomiting 02/01/23 tablet #30 tabs ondansetron HCl 4 mg tablet 4 mg PO Q6H PRN nausea and 04/18/23 vomiting #10 tabs oxycodone 5 mg tablet 5 mg PO Q4H PRN pain #20 tabs 04/18/23 Allergies Allergy/AdvReac Type Severity Reaction Status Date / Time naproxen [From NAPROSYN] Allergy Intermediate TENSE,ANXIE Verified 05/02/23 07:49 TY duloxetine AdvReac Mild Headache Verified 05/02/23 07:49 glycopyrrolate AdvReac Mild tachycardia Verified 05/02/23 07:49 ibuprofen [From Advil] AdvReac Mild Gastrointestinal Verified 05/02/23 07:49 Upset pravastatin AdvReac Mild Anxiety Verified 05/02/23 07:49 Review of Systems Review of Systems: Yes all other systems are reviewed and are negative [facility] Past Medical History Medical History (Updated 05/02/23 @ 08:55 by Dmitry Leija MD) DJD (degenerative joint disease) Nausea Preoperative cardiovascular examination BPH (benign prostatic hyperplasia) TOMY (obstructive sleep apnea) Chronic hiccups History of colon polyps Family history of colon cancer Essential hypertension History of TIAs History of stroke Migraines Achilles tendon tear Surgical History (Updated 04/24/23 @ 09:50 by Nirmala Carreno CMA) Hx of cholecystectomy History of repair of hiatal hernia History of lumbar surgery History of carpal tunnel surgery of left wrist History of colonoscopy History of esophagogastroduodenoscopy (EGD) History of resection of small bowel History of appendectomy Family History Family History Father Diabetes Brother Colon cancer Sister Colon cancer Sister Colon cancer Breast cancer Social History Social History Household Members: Spouse Housing: House Are you a primary vehicle care specialist to a significant other at home: No Do you presently have visiting nurse or other home services: No Alcohol intake: never Patient Tobacco Use Status: Never used Tobacco e-Cigarette/Vaping Use: Never Used Second Hand Smoke Exposure: No Advance Directives: Yes Advance Directives on File: Yes Advance Directives Date on File: 10/15/22 service: Yes Current occupational status: retired Physical Exam ED Vital Signs: Vital Signs - 24 hr 05/02/23 07:44 Temperature 97.3 F Pulse Rate 54 Respiratory Rate 18 Blood Pressure 154/92 H Pulse Oximetry 97 Oxygen Delivery Method Room Air BMI result Body Mass Index 23.3 Vital signs did reveal an elevated blood pressure of 154/92 otherwise unremarkable Exam General: Awake, alert in no distress Head: Normocephalic, atraumatic EENT: PERRL, Lids normal, sclera normal, conjunctiva normal, nose normal , ears normal, throat without erythema or exudates Neck: Supple, no adenopathy, no trachea midline or C-spine tenderness Lung: breath sounds symmetric, no wheezing, rales or rhonchi Chest: symmetric movement, nontender Heart: regular rate and rhythm, normal S1, S2 no murmurs or rubs Abdomen: soft, non-tender, nondistended, normal bowel sounds Back: no vertebral tenderness, no CVAT Extremities: no deformities, moves all extremities symmetrically Neuro: Awake, alert, oriented, normal speech, cranial nerves intact, moves all extremities symmetrically Psych: Pleasant, cooperative Medical Decision Making Medical Decision Making MDM Narrative: 78-year-old male history of hypertension, coronary artery disease, obstructive sleep apnea, TIA, GERD,intractable hiccups improved after hiatal hernia repair (01/24/2023) complains producing too much saliva. He states he has had this symptom in the past and was felt to be secondary to his GERD. Patient states that he has seen a specialist at the [facility] who recommended that he get a scan but he is not exactly what scan was requested. Patient's vital signs did reveal an elevated blood pressure. The patient's physical examination was unremarkable. Patient's symptoms have resolved. I did discuss the patient's presentation with his international trade specialist, Dr. Ortiz over tiger text and he recommended that the patient continue taking his pantoprazole an as an antacid. I did discuss this with the patient advised him to take extra-strength Gaviscon 10 cc 4 times a day as needed. I also advised him to follow-up with his surgeon, Dr. Hardy to discuss the specialist recommendations. Differential Diagnosis Differential Diagnoses: The differential diagnosis associated with the presentation includes Differential diagnosis includes was not limited to gastritis, GERD External Record Review External record reviewed: Inpatient record and Office record Discharge Plan Discharge Clinical Impression: Excessive salivation, GERD (gastroesophageal reflux disease) Patient Disposition: Home, Self-Care Instructions: Sialorrhea (ED), Gastroesophageal Reflux Disease (ED) Additional Instructions: Continue taking your pantoprazole Take extra-strength Gaviscon 10 mL (2 tsp) 4 times a day as needed for abdominal pain. Continue taking your other medications as prescribed by your providers. Contact Dr. Mccarty' office to discuss further workup for your hypersalivation symptoms. Prescriptions: No Action sucralfate 100 mg/mL suspension 10 ml PO BID Qty: 414 0RF ondansetron 4 mg tablet,disintegrating 4 mg PO Q6H Qty: 30 1RF amlodipine 2.5 mg Tablet 2.5 mg PO DAILY PRN (Reason: Hypertension) clopidogrel [Plavix] 75 mg Tablet 75 mg PO DAILY ondansetron HCl 4 mg tablet 4 mg PO Q6H PRN (Reason: nausea and vomiting) Qty: 10 0RF oxycodone 5 mg tablet 5 mg PO Q4H PRN (Reason: pain) Qty: 20 0RF Rx Instructions: Partial Fill upon patient request. sumatriptan succinate 50 mg tablet 50 mg PO Q2-4H PRN (Reason: Headache) Rx Instructions: do not exceed 4 doses per 24 hrs tamsulosin 0.4 mg capsule 0.4 mg PO BEDTIME
--- NOTE | 2023-05-02 07:57 | PC.NURSE ---
Patient reports had a hernia repair on October 11, reports after surgery he had had hypersaivation. Reports that MD`s believed that his gall bladder was the problem and gallbladder was removed. Reports gallbladder was removed and the problem has not resolved. Patient reports most recent episode started on Saturday and just resolved around 3am this morning.
== END 2023-05-02 09:04 | disposition home or self-care (01) ==
PROVIDERS: Emergency Provider Emergency Medicine Emergency Medical Services; PCP Physician Assistant
DX: K21.9 Gastro-esophageal reflux disease without esophagitis (principal); G47.33 Obstructive sleep apnea (adult) (pediatric); K11.7 Disturbances of salivary secretion
CPT/HCPCS: 99284